=== PATIENT | female | born 1950 | race Caucasian/White ===

== ENCOUNTER 2019-09-03 01:46 | Day surgery (SDC) | payer MEDICARE, SELFPAY ==
[2019-08-29 09:12] VITALS: BMI 39.5
[2019-09-03 11:02] VITALS: BP 125/75; PULSE 81; RESP 18; TEMP 36.7; O2SAT 95
[2019-09-03] MEDS: LACTATED RINGERS 1,000 ML 150 ML IV CONT (11:05)
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
[2019-09-03 12:52] VITALS: BP 112/72; PULSE 77; RESP 25; O2SAT 95
[2019-09-03 13:02] VITALS: BP 122/69; PULSE 77; RESP 16; O2SAT 95
[2019-09-03 13:12] VITALS: BP 138/69; PULSE 69; RESP 16; O2SAT 95
[2019-09-03 13:18] LABS: Basophils Percent Auto 0.3 % (0.2-1.2); Eosinophils Absolute Auto 0.2 K/mm3 (0-0.3); Eosinophils Percent Auto 2.6 % (0-4.4); Hematocrit 39.1 % (37.0-47.0); Hemoglobin 13.1 g/dL (12.0-15.0); Immature Granulocyte Absolute 0.04 K/mm3 (0.00-0.031); Immature Granulocyte Percent A 0.6 % (0-0.5); Lymphocytes Absolute Auto 1.48 K/mm3 (0.9-3.2); Lymphocytes Percent Auto 23.6 % (18.3-44.2); Mean Corpuscular HGB Conc 33.5 g/dl (32-36); Mean Corpuscular Hemoglobin 32.2 pg (26-34); Mean Corpuscular Volume 96.1 fl (80-100); Mean Platelet Volume 9.7 fl (7.4-10.4); Monocytes Absolute Auto 0.3 K/mm3 (0.1-0.6); Monocytes Percent Auto 4.8 % (2.6-8.5); Neutrophils Absolute Auto 4.3 K/mm3 (1.3-6.7); Neutrophils Percent Auto 68.1 % (45.5-73.1); Platelet Count Result 250 k/mm3 (150-375); Red Blood Count 4.07 M/mm3 (4.2-5.4); Red Cell Distribution Width 12.8 % (11.5-14.5); White Blood Count 6.3 K/mm3 (4.5-10.0)
[2019-09-03 13:28] LABS: Prothrombin Time 12.4 Seconds (11.1-14.7)
[2019-09-03 13:29] LABS: Alanine Aminotransferase 25 U/L (4-35); Albumin Level 3.9 g/dL (3.5-5.1); Alkaline Phosphatase 101 U/L (38-126); Aspartate Amino Transferase 23 U/L (14-36); Bilirubin,Total 0.7 mg/dL (0.2-1.3)
[2019-09-03 13:33] LABS: Blood Urea Nitrogen 11 mg/dL (7-17); Calcium 8.9 mg/dL (8.4-10.2); Carbon Dioxide 29 mmol/L (22-30); Chloride 101 mmol/L (98-107); Estimated CRCL calculation 83 ml/min; Estimated Glomerular Filt Rate > 60; Glucose 103 mg/dL (65-105); Potassium 2.9 mmol/L (3.4-5.0); Sodium 139 mmol/L (137-145)
[2019-09-04 06:19] LABS: Glucose Point of Care 98 (65-105)
== END 2019-09-03 13:28 | disposition home or self-care (01) ==
PROVIDERS: Nurse Practitioner; PCP Internal Medicine; Visit Provider Internal Medicine Gastroenterology
PROC: 0DJ08ZZ Inspection of Upper Intestinal Tract, Via Natural or Artificial Opening Endoscopic (ICD-10-PCS; CPT 43235; principal; 2019-09-03 12:30)
DX: R13.10 Dysphagia, unspecified (principal); K31.7 Polyp of stomach and duodenum; K29.50 Unspecified chronic gastritis without bleeding; D83.9 Common variable immunodeficiency, unspecified; I10 Essential (primary) hypertension; E11.9 Type 2 diabetes mellitus without complications; E78.5 Hyperlipidemia, unspecified; E55.9 Vitamin D deficiency, unspecified; M06.9 Rheumatoid arthritis, unspecified; Z90.49 Acquired absence of other specified parts of digestive tract; Z79.84 Long term (current) use of oral hypoglycemic drugs; Z79.82 Long term (current) use of aspirin; E66.01 Morbid (severe) obesity due to excess calories; Z68.41 Body mass index [BMI] 40.0-44.9, adult
CPT/HCPCS: 43239; 36415; 80048; 80076; 85025; 85610; 88305; J2704; J7120

== ENCOUNTER 2020-01-13 00:06 | Outpatient (CLI) | payer MEDICARE, SELFPAY ==
[2020-01-13 18:56] LABS: SARS-CoV-2 RNA PCR Negative
== END 2020-01-13 00:07 | disposition home or self-care (01) ==
LOC: ANHCOVIDDT 00:06
PROVIDERS: PCP Internal Medicine; Visit Provider Internal Medicine Gastroenterology
DX: Z01.818 Encounter for other preprocedural examination (principal); Z11.59 Encounter for screening for other viral diseases; Z12.11 Encounter for screening for malignant neoplasm of colon
CPT/HCPCS: 87635; C9803; U0003

== ENCOUNTER 2020-01-15 01:26 | Day surgery (SDC) | payer MEDICARE, SELFPAY ==
[2019-12-10 09:29] VITALS: BMI 39.5
[2020-01-07 15:12] VITALS: BMI 39.5
[2020-01-15 07:03] VITALS: BP 112/56; PULSE 88; RESP 18; TEMP 36.4; O2SAT 96
[2020-01-15] MEDS: LACTATED RINGERS 1,000 ML 150 ML IV CONT (07:21)
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
[2020-01-15 07:24] LABS: Glucose Point of Care 116 (65-105)
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
[2020-01-15 07:57] VITALS: BP 87/51; PULSE 78; RESP 21; O2SAT 95
[2020-01-15 08:07] VITALS: BP 98/73; PULSE 87; RESP 18; O2SAT 98
[2020-01-15 08:17] VITALS: BP 106/65; PULSE 74; RESP 21; O2SAT 97
== END 2020-01-15 08:53 | disposition home or self-care (01) ==
PROVIDERS: PCP Internal Medicine; Visit Provider Internal Medicine Gastroenterology
PROC: 0DJD8ZZ Inspection of Lower Intestinal Tract, Via Natural or Artificial Opening Endoscopic (ICD-10-PCS; CPT 45378; principal; 2020-01-15 08:00)
DX: Z12.11 Encounter for screening for malignant neoplasm of colon (principal); K57.30 Diverticulosis of large intestine without perforation or abscess without bleeding; K64.8 Other hemorrhoids; Z86.010 Personal history of colon polyps; K21.9 Gastro-esophageal reflux disease without esophagitis; I10 Essential (primary) hypertension; E11.9 Type 2 diabetes mellitus without complications; E78.5 Hyperlipidemia, unspecified; G47.33 Obstructive sleep apnea (adult) (pediatric); E55.9 Vitamin D deficiency, unspecified
CPT/HCPCS: G0105; 87635; C9803; J2001; J2405; J2704; J7120; U0003

== ENCOUNTER 2020-05-22 09:54 | Outpatient (CLI) | payer MEDICARE, SELFPAY ==
--- NOTE | ~2020-05-22 | DEXA_ITS ---
Bone Density Report Name: Kathe Augustin Age: 69 Sex: Female Ethnicity: White Date of : 1950 Indication: postmenopausal; history of glucocorticoids; asthma or emphysema; hysterectomy; rheumatoid arthritis; Referring Provider: PRABHA ANN Study: Bone densitometry was performed. Exam Date: May 22, 2020 Accession number: [id number] Bone Density: Region BMD T-score Z-score Classification AP Spine (L1-L4) 1.174 1.2 3.2 Normal Femoral Neck (Left) 0.961 1.0 2.7 Normal Total Hip (Left) 1.154 1.7 3.2 Normal Total Hip Bilateral Avg 1.188 2.0 3.5 Normal Femoral Neck (Right) 1.004 1.4 3.1 Normal Total Hip (Right) 1.221 2.3 3.7 Normal World Health Organization criteria for BMD impression classify patients as: Normal (T-score at or above -1.0), Osteopenia (T-score between -1.0 and -2.5), or Osteoporosis (T-score at or below -2.5). 10-year Fracture Risk: FRAX not reported because: All T-scores for Spine Total, Hip Total, Femoral Neck at or above -1.0 Clinical Information Provided by Patient: Has taken Glucocorticoids Has rheumatoid arthritis Has the following medical conditions: Asthma or Emphysema, Hysterectomy Patient maximum height was 61 Menopause Age: 53 No regular weight bearing exercise Drinks caffeinated beverages Onset of menses at age 13 Number of children 3 Impression: The patient has normal bone mass. The patient has risk factors, including: history of glucocorticoid therapy. Discussion: LOW RISK OF FRACTURE; BONE DENSITY IS WELL ABOVE THE MINIMUM DESIRABLE LEVEL AND ABOVE AVERAGE FOR AGE AND SEX AT ALL SKELETAL SITES TESTED. This person's bone density is above expected limits for age and sex. This is rarely clinically significant, but should be pursued if there are significant musculoskeletal complaints. The patient should follow a healthful lifestyle (good nutrition with adequate calcium and vitamin D, and appropriate weight-bearing exercise). Follow-Up: Consider repeating this study in 5 years or sooner if there is some new clinical indication. Reported by: ESDRAS on 05/22/2020 10:31:00 AM. Reviewed, dictated and finalized at location AShannon ANAYA
--- NOTE | ~2020-05-22 | MM_ITS ---
EXAMINATION: MM screening tata BI w gela HISTORY: Screening TECHNIQUE: Craniocaudal and mediolateral oblique 3-D tomosynthesis images were obtained and synthetic 2-D images were generated. CAD analysis was submitted and interpreted. COMPARISON: Comparison to multiple prior studies sequentially, with oldest reviewed study dated 11/07. BREAST PARENCHYMAL COMPOSITION: There are scattered areas of fibroglandular density. FINDINGS: There is a focal asymmetry in the upper inner quadrant of the right breast with developing calcifications. The left breast is stable without evidence for malignancy. IMPRESSION: 1. Focal right breast asymmetry with calcifications, upper inner quadrant posteriorly. 2. Additional mammographic views and possible breast ultrasound are recommended. BI-RADS Category 0: Incomplete: Needs additional imaging evaluation. Reviewed, dictated and finalized at location A. ST LAW AND POLICY PROFESSOR IMPRESSION: 1. Focal right breast asymmetry with calcifications, upper inner quadrant poste riorly. 2. Additional mammographic views and possible breast ultrasound are recommended . BI-RADS Category 0: Incomplete: Needs additional imaging evaluation.
== END 2020-05-22 09:55 | disposition home or self-care (01) ==
LOC: ANHIMG 09:57
PROVIDERS: PCP Internal Medicine; Visit Provider Internal Medicine
DX: Z12.31 Encounter for screening mammogram for malignant neoplasm of breast (principal); Z79.52 Long term (current) use of systemic steroids; R92.8 Other abnormal and inconclusive findings on diagnostic imaging of breast
CPT/HCPCS: 77063; 77067; 77080

== ENCOUNTER 2020-06-15 13:50 | Outpatient (CLI) | payer MEDICARE, SELFPAY ==
--- NOTE | ~2020-06-15 | MM_ITS ---
EXAMINATION: MM diagnostic mammo unilat RT HISTORY: Focal right breast asymmetry with calcifications, posterior upper inner quadrant, reported o n 05/22/2020 bilateral digital screening mammogram TECHNIQUE: Additional 3-D tomosynthesis images of the right breast were performed and synthetic 2-D i mages were generated. CAD analysis was submitted and interpreted. High resolution upper inner quadran t right breast ultrasound was performed. COMPARISON: Serial mammographic examinations dating back to 02/07/2009 FINDINGS: MAMMOGRAPHIC FINDINGS: There is a small focal approximately 5 mm mammographic asymmetry in posterior aspect of the upper inn er quadrant of the right breast, which is present on prior mammograms dating back to 01/28/2009. ULTRASOUND: No suspicious mass or shadowing is detected in the upper inner quadrant of the right breast.. IMPRESSION: 1. No mammographic evidence of malignancy 2. Routine mammographic screening is recommended. BI-RADS Category 2: Benign finding(s). Reviewed, dictated and finalized at location A. TRAFFIC CONTROL OPERATOR
--- NOTE | ~2020-06-15 | US_ITS ---
US breast RT limited DATE: 06/15/2020 15:00 INDICATION: Focal asymmetry in posterior upper inner quadrant of right breast TECHNIQUE: High-resolution ultrasound imaging of the upper inner quadrant of the right breast COMPARISON: 05/22/2020 bilateral digital screening mammogram and serial mammograms dating back to 01/20 FINDINGS: No suspicious mass or shadowing is detected. IMPRESSION: BI-RADS Category 2: Benign Recommendation: Routine mammographic screening Reviewed, dictated and finalized at Location A. Reviewed, dictated and finalized at location A. SUPPORT ANALYST SUPERVISOR
== END 2020-06-15 13:51 | disposition home or self-care (01) ==
LOC: ANHIMG 13:52
PROVIDERS: PCP Internal Medicine; Visit Provider Internal Medicine
DX: N63.12 Unspecified lump in the right breast, upper inner quadrant (principal)
CPT/HCPCS: 76642; 77065

== ENCOUNTER 2020-07-18 02:21 | Emergency (ER) | payer MEDICARE, SELFPAY ==
[2020-07-18] VITALS (7 sets, daily range): BP systolic 119–162; BP diastolic 63–88; PULSE 79–104; RESP 15–22; TEMP 37.7–38.8; O2SAT 95–99
--- NOTE | ~2020-07-18 | XR_ITS ---
EXAMINATION: XR chest 1V portable EXAM DATE: 07/18/2020 02:54 INDICATION: Cough, shortness of breath, nausea and chills. TECHNIQUE: Portable AP frontal chest x-ray was obtained. Comparison is made to prior examination from 02/11/2015. FINDINGS: There is mild cardiomegaly and pulmonary vascular congestion. Some ill-defined bilateral ed yesica or infection, clinical correlation. Consider possibility of COVID pneumonia. No pneumothorax or pleural effusion. There are mild bony degenerative changes. 2014 chest x-ray was essentially normal. IMPRESSION: Cardiomegaly, congestion and some patchy ill-defined edema or infection. Reviewed, dictated and finalized at location A. OGRAPHIC PROOFER IMPRESSION: Cardiomegaly, congestion and some patchy ill-defined edema or infec tion.
--- NOTE | ~2020-07-18 | CT_ITS ---
EXAMINATION: CTA chest PE protocol EXAM DATE: 07/18/2020 04:01 INDICATION: Dyspnea. TECHNIQUE: Spiral CTA of the chest (pulmonary arteries) was performed with 100 cc Omnipaque 350 intr avenous contrast injection. Images were acquired during the pulmonary arterial phase. Coronal maxi mum intensity projection 3D-reconstructions were created by the technologist on dedicated workstation . Axial, coronal and sagittal reformatted images were reviewed. The dose-length product (DLP) for t his examination was 732.36 mGy-cm. The exposure was tailored according to patient size (auto mA exp osure control), and iterative reconstruction (ASIR) was used as additional dose reduction technique. Comparison is made to prior examination from 07/29/2019. FINDINGS: Pulmonary arteries are well opacified and without intraluminal filling defects. No thora cic aortic dissection. There is left lateral and basilar peripheral groundglass acute airspace disea se which is new compared to previous examination, most likely acute infectious pneumonitis. There is chronic right upper lobe bronchiectasis. There are no pleural or pericardial effusions. Tracheobro nchial tree is patent. There is no mediastinal, hilar or axillary lymphadenopathy. There is no pn eumothorax. Heart normal in size. There is mild coronary arterial calcification, arterial scleros is. There is hepatic steatosis. There is thoracic spondylosis without osteoblastic or osteolytic le sions identified. IMPRESSION: 1. Left lung small regions of peripheral groundglass opacity most likely acute infectious process. R ecommend considering possibility of COVID pneumonia. 2. No evidence of pulmonary embolism. 3. Hepatic steatosis. Reviewed, dictated and finalized at location A. ISTICAL METHODS PROFESSOR IMPRESSION: 1. Left lung small regions of peripheral groundglass opacity most likely acute infectious process. Recommend considering possibility of COVID pneumonia. 2. No evidence of pulmonary embolism. 3. Hepatic steatosis.
--- NOTE | 2020-07-18 02:25 | ECG_ITS ---
Measurements Intervals [place] Rate: 103 P: 25 NM: 171 QRS: 12 QRSD: 88 T: 30 QT: 320 QTc: 420 Interpretive Statements SINUS TACHYCARDIA DELAYED PRECORDIAL R/S TRANSITION BASELINE ARTIFACT- I, II, III, AVR, AVL, AVF BORDERLINE ECG Electronically Signed On 07-18-2020 15:03:58 DIRECTOR STRATEGIC PLANNING by Semaj Lopez D.O.
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
[2020-07-18] MEDS: ONDANSETRON INJ 4 MG/2 ML VIAL IV PUSH (02:42)
[2020-07-18 02:46] LABS: Basophils Percent Auto 0.2 % (0.2-1.2); Eosinophils Percent Auto 0.2 % (0-4.4); Hematocrit 36.6 % (37.0-47.0); Hemoglobin 12.4 g/dL (12.0-15.0); Immature Granulocyte Absolute 0.08 K/mm3 (0.00-0.031); Immature Granulocyte Percent A 1.5 % (0-0.5); Lymphocytes Absolute Auto 0.66 K/mm3 (0.9-3.2); Lymphocytes Percent Auto 12.1 % (18.3-44.2); Mean Corpuscular HGB Conc 33.9 g/dl (32-36); Mean Corpuscular Hemoglobin 31.3 pg (26-34); Mean Corpuscular Volume 92.4 fl (80-100); Mean Platelet Volume 9.4 fl (7.4-10.4); Monocytes Absolute Auto 0.3 K/mm3 (0.1-0.6); Monocytes Percent Auto 5.5 % (2.6-8.5); Neutrophils Absolute Auto 4.4 K/mm3 (1.3-6.7); Neutrophils Percent Auto 80.5 % (45.5-73.1); Platelet Count Result 232 k/mm3 (150-375); Red Blood Count 3.96 M/mm3 (4.2-5.4); Red Cell Distribution Width 12.8 % (11.5-14.5); White Blood Count 5.5 K/mm3 (4.5-10.0)
[2020-07-18 02:58] LABS: D Dimer 0.56 ug/mL (<0.48)
[2020-07-18 02:59] LABS: Alanine Aminotransferase 21 U/L (4-35); Albumin Level 3.9 g/dL (3.5-5.1); Alkaline Phosphatase 110 U/L (38-126); Anion Gap 10 mmol/L (8-16); Aspartate Amino Transferase 29 U/L (14-36); Bilirubin,Total 0.5 mg/dL (0.2-1.3); Blood Urea Nitrogen 12 mg/dL (7-17); Calcium 8.9 mg/dL (8.4-10.2); Carbon Dioxide 27 mmol/L (22-30); Chloride 98 mmol/L (98-107); Estimated CRCL calculation 81 ml/min; Estimated Glomerular Filt Rate > 60; Glucose 161 mg/dL (65-105); Sodium 135 mmol/L (137-145)
[2020-07-18] MEDS: ALBUTEROL SULFATE (*SP) AEROSOL 1 PUFF 2 PUFF INHALATION (03:00)
[2020-07-18] MEDS: POTASSIUM CHLORIDE 20 MEQ PACKET (FOR LIQUID) 40 MEQ PO (06:03)
[2020-07-18] MEDS: AZITHROMYCIN 250 MG TABLET 500 MG PO (06:03)
== END 2020-07-18 06:29 | disposition home or self-care (01) ==
PROVIDERS: Emergency Provider Emergency Medicine; PCP Internal Medicine
DX: U07.1 COVID-19 (principal); J12.89 Other viral pneumonia; Z79.82 Long term (current) use of aspirin; I10 Essential (primary) hypertension; M35.2 Behcet's disease; J44.9 Chronic obstructive pulmonary disease, unspecified; D83.9 Common variable immunodeficiency, unspecified; E11.43 Type 2 diabetes mellitus with diabetic autonomic (poly)neuropathy; K31.84 Gastroparesis; K21.9 Gastro-esophageal reflux disease without esophagitis; E78.5 Hyperlipidemia, unspecified; G47.33 Obstructive sleep apnea (adult) (pediatric); M06.9 Rheumatoid arthritis, unspecified; M35.00 Sjogren syndrome, unspecified; E55.9 Vitamin D deficiency, unspecified; Z98.49 Cataract extraction status, unspecified eye; R00.0 Tachycardia, unspecified; R94.31 Abnormal electrocardiogram [ECG] [EKG]; Z79.84 Long term (current) use of oral hypoglycemic drugs
CPT/HCPCS: 36415; 71045; 71275; 80053; 85025; 85380; 93005; 94640; 96365; 96375; 99284; A9270; J0131; J2405; Q9967

== ENCOUNTER 2020-07-22 10:03 | Outpatient (RCR) | payer MEDICARE, SELFPAY ==
[2020-07-22] MEDS: ACETAMINOPHEN 325 MG TABLET 650 MG PO (11:14)
[2020-07-22] MEDS: diphenhydrAMINE HCl CAP 25 MG CAPSULE PO (11:15)
[2020-07-22] MEDS: FAMOTIDINE 20 MG TABLET PO (11:15)
[2020-07-22 11:17] VITALS: BP 106/61; RESP 18; O2SAT 96
[2020-07-22 12:42] VITALS: BP 121/64; PULSE 80; RESP 16; O2SAT 95
--- NOTE | 2020-07-22 12:54 | PC.NURSE ---
Prior to infusion patient given Bamlanivimab patient fact sheet to review.
[2020-07-22 13:15] VITALS: BP 128/66; PULSE 77; O2SAT 96
--- NOTE | 2020-07-22 13:20 | PC.NURSE ---
Patient discharged, vss, instructions given. Verbalizes understanding of continuing quarantine and wearing mask, signs and symptoms to notify primary care for.
--- NOTE | 2020-07-26 11:50 | PC.NURSE ---
Spoke with patient and she is feeling better. About 24 hours after the infusion of Bamlanivimab, she was fever free, less shortness of breath and able to sleep better.
== END 2020-07-26 10:37 ==
LOC: AMCINF 10:03
PROVIDERS: PCP Internal Medicine; Visit Provider Internal Medicine Hematology & Oncology
DX: U07.1 COVID-19 (principal); J44.9 Chronic obstructive pulmonary disease, unspecified; D83.9 Common variable immunodeficiency, unspecified; D80.9 Immunodeficiency with predominantly antibody defects, unspecified; G47.33 Obstructive sleep apnea (adult) (pediatric); I10 Essential (primary) hypertension; K31.84 Gastroparesis; K21.9 Gastro-esophageal reflux disease without esophagitis; K22.70 Barrett's esophagus without dysplasia; B08.5 Enteroviral vesicular pharyngitis; B37.81 Candidal esophagitis; E11.9 Type 2 diabetes mellitus without complications; E55.9 Vitamin D deficiency, unspecified; E78.5 Hyperlipidemia, unspecified; M35.2 Behcet's disease; M35.00 Sjogren syndrome, unspecified; M06.9 Rheumatoid arthritis, unspecified; R10.13 Epigastric pain; R13.10 Dysphagia, unspecified; R14.0 Abdominal distension (gaseous); R14.3 Flatulence; Z23 Encounter for immunization; F51.01 Primary insomnia; Z90.710 Acquired absence of both cervix and uterus; Z86.010 Personal history of colon polyps; Z90.49 Acquired absence of other specified parts of digestive tract; Z98.890 Other specified postprocedural states; Z79.899 Other long term (current) drug therapy; Z68.41 Body mass index [BMI] 40.0-44.9, adult
CPT/HCPCS: A9270; J7050; M0239; Q0239

== ENCOUNTER 2021-02-22 10:27 | Outpatient (CLI) | payer MEDICARE, SELFPAY ==
--- NOTE | ~2021-02-22 | XR_ITS ---
EXAMINATION: XR hip BI wo pelvis DATE: 02/22/2021 10:48 INDICATION: Right hip pain. TECHNIQUE: 3 views of right hip and 3 views of left hip were obtained. COMPARISON: Hip radiographs 10/21/2018 FINDINGS: Bone alignment is normal. No fracture. The hip joint spaces are normal. IMPRESSION: 1. Normal hips. Reviewed, dictated and finalized at location A. IMPRESSION: 1. Normal hips.
== END 2021-02-22 10:28 | disposition home or self-care (01) ==
LOC: ANHIMG 10:34
PROVIDERS: PCP Internal Medicine; Visit Provider Internal Medicine
DX: M25.551 Pain in right hip (principal); M25.552 Pain in left hip
CPT/HCPCS: 73521

== ENCOUNTER 2021-03-17 08:44 | Outpatient (CLI) | payer MEDICARE, SELFPAY ==
--- NOTE | ~2021-03-17 | XR_ITS ---
EXAMINATION: XR barium swallow modified EXAM DATE: 03/17/2021 09:39 INDICATION: Dysphagia, reflux, varices esophagus. History of tracheoesophageal fistula repair. TECHNIQUE: Modified barium esophagram was performed by speech pathologist with radiologist Dr. Rylan Hobson present to administered fluoroscopy. Speech pathologist administered barium in varying consis tencies as per speech pathologist documentation. This was recorded on tape. There was total fluorosc opic time of 1.0 minutes. The DAP for this procedure was 1.8 Gycm2. A total of 6 images sent to PAC S from the exam. FINDINGS: Oral stage: Adequate function. Pharyngeal phase: Adequate function. Laryngeal penetration: Thin liquids, ejected. Aspiration: None. Laryngeal sensitivity: Present. Patient stated she felt ingested material still present. Additional frontal standing images of the es ophagus demonstrated small amount of residual barium in the distal esophagus, with everything else in gested in her stomach. More comprehensive evaluation with esophagram if indicated clinically. IMPRESSION: Normal modified esophagram exam. Reviewed, dictated and finalized at location A.
--- NOTE | 2021-03-17 15:44 | STOPEVAL ---
MODIFIED BARIUM SWALLOW EVALUATION: Thank you for referring Kathe Augustin to [facility].? Attending Provider: Rylan Ramos MD Outpatient Past Medical History Past Medical History Source of Past Medical History Patient Neurological History Hx Neurological Disorders No Significant History Cardiovascular History Hx Hypercholesterolemia Yes Hx Hypertension Yes Hx Palpitations Yes Respiratory History Hx Bronchitis Yes: from a child Hx Chronic Obstructive Pulmonary Disease Yes: INHALERS (COPD) Hx Pneumonia Yes: from a child Hx Sleep Apnea Yes: CPAP Hx Other Respiratory Disorders Yes: Tracheal esophageal fistula repair x2 20 years ago Gastrointestinal History Hx Appendectomy Yes Hx Bowel Surgery Yes: CECAL COLECTOMY PRECANCEROUS Hx Cholecystectomy Yes Hx Esophageal Disorders Yes: TE FISTULA repair 20 YRS AGO Hx Gastroesophageal Reflux Disease Yes Hx Polyps Yes: colon PRECANCEROUS Hx Other Gastrointestinal Disorders Yes: dx serrano's esophagus 2019 with egd Genitourinary History Hx Bladder Surgery Yes: BLADDER SUSPENSION Musculoskeletal History Hx Fibromyalgia Yes Hx Orthopedic Surgery Yes: left bunionectomy Hematological History Are You Aware That You Have Any Yes: O NEG AND HAS CVID-Common Antibodies? variable immunodefeciency Hx Blood Transfusions Yes Hx Other Hematological Disorders Yes: gets IV IgG infused monthly for CVID Endocrine History Hx Diabetes Yes: po meds HEENT History Hx Cataracts Yes: BILAT REMOVED Hx Tonsillectomy Yes Hx Other HEENT Disorders Yes: SINUS SURGERY X2 REMOVAL OF POLYPS Integumentary History Hx Skin Disorders No Significant History Reproductive History Hx Hysterectomy Yes Hx Tubal Ligation Yes Psychosocial History Hx Anxiety Yes Pain History History of Any Previous or Ongoing No Significant History Instance of Pain Anesthesia History Hx Other Anesthesia Reactions Yes: NAUSEA Modified Barium Swallow Evaluation Recent Swallowing History Reports Dysphagia Yes History of Dysphagia No: 6-7 months History of Pneumonia Yes: childhood Reported Difficult Consistencies Solids Intake Method Prior to Swallow Oral Evaluation Diet Prior to Swallow Evaluation Regular, Level 7 Liquid Consistency Prior to Swallow Thin (0) Evaluation Consistency Solid Consistency Method of Presentation
== END 2021-03-17 08:45 | disposition home or self-care (01) ==
PROVIDERS: PCP Internal Medicine; Visit Provider Internal Medicine Gastroenterology
DX: R13.14 Dysphagia, pharyngoesophageal phase (principal); K22.70 Barrett's esophagus without dysplasia; K21.00 Gastro-esophageal reflux disease with esophagitis, without bleeding
CPT/HCPCS: 92611

== ENCOUNTER 2021-04-25 09:14 | Outpatient (CLI) | payer MEDICARE, SELFPAY ==
--- NOTE | ~2021-04-25 | XR_ITS ---
XR cervical spine min 6V DATE: 04/25/2021 09:35 INDICATION: Neck pain, acute onset headache TECHNIQUE: AP, open-mouth, lateral, swimmer views. Flexion and extension lateral views. COMPARISON: None FINDINGS: There is straightening of the cervical spine. There is minimal anterolisthesis at C3-C4 in neutral and flexion, reduced in extension. C1 and C2 are normally aligned and the odontoid process is intact. No fracture or dislocation or lock ed facet or prevertebral soft tissue swelling. No fracture or dislocation or locked facet or prevertebral soft tissue swelling. There is moderately prominent degenerative disc disease and uncovertebral joint spurring at C4-5, C5- C6 and C6-7. IMPRESSION: Cervical spondylosis Mild anterolisthesis at C3-C4 in neutral and flexion, reduced in extension Reviewed, dictated and finalized at location A.
== END 2021-04-25 09:15 | disposition home or self-care (01) ==
LOC: ANHIMG 09:16
PROVIDERS: PCP Internal Medicine; Visit Provider Internal Medicine
DX: M54.2 Cervicalgia (principal); M47.812 Spondylosis without myelopathy or radiculopathy, cervical region; M43.12 Spondylolisthesis, cervical region
CPT/HCPCS: 72052

== ENCOUNTER 2021-12-06 10:00 | Outpatient (CLI) | payer MEDICARE, SELFPAY ==
--- NOTE | ~2021-12-06 | MM_ITS ---
EXAMINATION: MM screening [facility] BI w gela HISTORY: Screening mammogram TECHNIQUE: Craniocaudal and mediolateral oblique 3-D tomosynthesis images were obtained and synthetic 2-D images were generated. CAD analysis was submitted and interpreted. COMPARISON: 06/15/2020, 05/22/2020, 04/11/2018 BREAST PARENCHYMAL COMPOSITION: There are scattered areas of fibroglandular density. FINDINGS: RIGHT BREAST: There is a possible mass with spiculation in the posterior third of inner breast at the 3:00 location 10 cm from the nipple. LEFT BREAST: There is no suspicious mass, calcification, or architectural distortion to suggest malig kevon. There has been no significant interval change. IMPRESSION: 1. Possible right breast mass. 2. Additional mammographic views and possible breast ultrasound are recommended. BI-RADS Category 0: Incomplete: Needs additional imaging evaluation. Reviewed, dictated and finalized at location A. IMPRESSION: 1. Possible right breast mass. 2. Additional mammographic views and possible breast ultrasound are recommended . BI-RADS Category 0: Incomplete: Needs additional imaging evaluation.
== END 2021-12-06 10:01 | disposition home or self-care (01) ==
LOC: ANHIMG 10:01
PROVIDERS: PCP Internal Medicine; Visit Provider Internal Medicine
DX: Z12.31 Encounter for screening mammogram for malignant neoplasm of breast (principal); R92.8 Other abnormal and inconclusive findings on diagnostic imaging of breast
CPT/HCPCS: 77063; 77067

== ENCOUNTER 2021-12-15 13:43 | Outpatient (CLI) | payer MEDICARE, SELFPAY ==
--- NOTE | ~2021-12-15 | MMUS_ITS ---
EXAMINATION: MM diagnostic tata RT w gela, US breast RT limited HISTORY: Possible spiculated right breast mass reported in posterior upper inner right breast on 12/06 screening mammogram TECHNIQUE: Additional 3-D tomosynthesis images of the right breast were performed and synthetic 2-D i mages were generated. CAD analysis was submitted and interpreted. High resolution targeted to o'clock right breast ultrasound was performed. COMPARISON: None FINDINGS: MAMMOGRAPHIC FINDINGS: There is an irregular up to 4.5 x 2.6 mm high density mass is noted in the posterior upper inner righ t breast, with spiculation. This is very suspicious. Targeted ultrasound was performed at posterior u pper inner right breast. ULTRASOUND: Right breast 2:00 10 cm from nipple: There is an irregular antiparallel hypoechoic mass with posterio r shadowing at this location, corresponding to the irregular spiculated mammographic mass, highly sug gestive of a small malignancy, which measures 3.3 x 2.4 x 3.7 mm approximate dimension sonographicall y. IMPRESSION: 1. 4 mm irregular spiculated hypoechoic shadowing mass in the posterior upper inner right breast at 2 :00 10 cm from nipple, highly suggestive of small malignancy 2. Ultrasound-guided biopsy of right 2:00 breast lesion is recommended BI-RADS category 5, highly suggestive of malignancy. Dr. Chopra telephoned the report and ultrasound guided biopsy recommendation for right breast at 2:00 p osition 10 cm from nipple to Dr. Saldana on 12/15/2021 at 1516 hours Reviewed, dictated and finalized at location A. IMPRESSION: 1. 4 mm irregular spiculated hypoechoic shadowing mass in the posterior upper i nner right breast at 2:00 10 cm from nipple, highly suggestive of small maligna ncy 2. Ultrasound-guided biopsy of right 2:00 breast lesion is recommended BI-RADS category 5, highly suggestive of malignancy. Dr. Chopra telephoned the report and ultrasound guided biopsy recommendation for right breast at 2:00 position 10 cm from nipple to Dr. Saldana on 12/15/2021 at 1 516 hours
== END 2021-12-15 13:44 | disposition home or self-care (01) ==
LOC: ANHIMG 13:45
PROVIDERS: PCP Internal Medicine; Visit Provider Internal Medicine
DX: R92.8 Other abnormal and inconclusive findings on diagnostic imaging of breast (principal); N63.12 Unspecified lump in the right breast, upper inner quadrant
CPT/HCPCS: 76642; 77061; 77065; G0279

== ENCOUNTER 2022-01-20 08:54 | Outpatient (CLI) | payer MEDICARE, SELFPAY ==
--- NOTE | ~2022-01-20 | US_ITS ---
US breast RT limited 01/20/2022 09:44 Indication: Left breast mass seen on prior ultrasound examination Procedure: High-resolution Limited ultrasound of the right breast Comparison: Comparison to multiple prior studies sequentially, with oldest reviewed study dated 04/24. Findings: In the area of previously identified mass at 2:00, 10 cm from the nipple there is subtle ar ea of shadowing, although no discrete mass is identified. This could represent septal interface. Revi ew of the previous mammogram demonstrates a small irregular mass in the area of sonographic concern. Impression: 1: Right breast mass seen on prior examination not definitely seen by ultrasound. Given the the mass is identified by mammography, further evaluation with stereotactic biopsy is recommended. BI-RADS CATEGORY 4-SUSPICIOUS ABNORMALITY RECOMMENDATION: Stereotactic right breast biopsy recommended. Reviewed, dictated and finalized at location A. Impression: 1: Right breast mass seen on prior examination not definitely seen by ultrasoun d. Given the the mass is identified by mammography, further evaluation with whitley reotactic biopsy is recommended. BI-RADS CATEGORY 4-SUSPICIOUS ABNORMALITY RECOMMENDATION: Stereotactic right breast biopsy recommended.
== END 2022-01-20 08:55 | disposition home or self-care (01) ==
PROVIDERS: PCP Internal Medicine; Visit Provider Surgery
DX: N63.12 Unspecified lump in the right breast, upper inner quadrant (principal)
CPT/HCPCS: 76642

== ENCOUNTER 2022-01-31 13:03 | Outpatient (CLI) | payer MEDICARE, SELFPAY ==
--- NOTE | ~2022-01-31 | MM_ITS ---
MM consultation DATE: 01/31/2022 14:18 INDICATION: Irregular 4.5 x 2.6 mm high density spiculated mammographic mass in posterior upper inner right breast Attempts were made to perform a stereotactic biopsy on the posterior upper inner right breast mass. T he lesion was 2-D to access by stereotactic biopsy. Preoperative mammographic wire localization is recommended with surgical removal of the mass. IMPRESSION: BI-RADS Category 4: Suspicious abnormality Recommendation: Preoperative mammographic wire localization and surgical removal Reviewed, dictated and finalized at Location A. Reviewed, dictated and finalized at location A. IMPRESSION: BI-RADS Category 4: Suspicious abnormality Recommendation: Preoperative mammographic wire localization and surgical remova l
== END 2022-01-31 13:04 | disposition home or self-care (01) ==
LOC: ANHIMG 13:04
PROVIDERS: PCP Internal Medicine; Visit Provider Surgery
DX: N63.10 Unspecified lump in the right breast, unspecified quadrant (principal); R92.8 Other abnormal and inconclusive findings on diagnostic imaging of breast
CPT/HCPCS: 99199

== ENCOUNTER 2022-03-21 07:54 | Outpatient (CLI) | payer MEDICARE, SELFPAY ==
[2022-03-21 08:43] LABS: Anion Gap 14 mmol/L (8-16); Blood Urea Nitrogen 21 mg/dL (7-17); Calcium 9.5 mg/dL (8.4-10.2); Carbon Dioxide 28 mmol/L (22-30); Chloride 98 mmol/L (98-107); Estimated Glomerular Filt Rate > 60; Glucose 146 mg/dL (65-110); Potassium 3.3 mmol/L (3.4-5.0); Sodium 140 mmol/L (137-145)
== END 2022-03-21 07:55 | disposition home or self-care (01) ==
PROVIDERS: Anesthesiology; PCP Internal Medicine; Visit Provider Surgery
DX: Z01.818 Encounter for other preprocedural examination (principal); E11.9 Type 2 diabetes mellitus without complications
CPT/HCPCS: 36415; 80048

== ENCOUNTER 2022-03-23 00:22 | Day surgery (SDC) | payer MEDICARE, SELFPAY ==
[2022-03-20 09:12] VITALS: BMI 36.1
--- NOTE | 2022-03-20 09:32 | PC.NURSE ---
Report to the Outpatient Waiting Room, entrance under the green pavilion located off [facility], at time _0830_ on date _03/23/22_. OR Time: _1200_. - You and your visitor will be asked to self-screen and do not enter if you have any COVID symptoms. - Only one visitor and NO children visitors are allowed at this time. - The patient visitor is requested to leave or wait in car when not with patient due to restrictions. - A mask is required within the hospital. Patients may have clear liquids (water, carbonated beverages, clear teas, apple juice) until 3 hours prior to surgery (0900 AM) with a maximum of 20 ounces. - No food from midnight until time of surgery - Infants may have breast milk until 4 hours before surgery, formula 6 hours prior to surgery. - Children will be allowed to drink immediately following surgery. If applicable, please bring a bottle or sippy cup to assist with drinking. Juice, water, soda, and popsicles are readily available. For infants on formula, please bring formula the day of surgery. Pacifiers are allowed. Take the following medications with a SIP of water the morning of surgery: _PREDNISONE, SERTRALINE, INHALER, LORAZEPAM IF NEEDED_ Medications to discontinue ANESTHESIA - OMEGA 3 - 3 DAYS PRIOR TO SURGERY, Date to take last dose 04/20/22_ Please no make-up, nail palestinian, hairspray, perfume, deodorant, or body powder the day of surgery. No jewelry (including any body piercings) or valuables the day of surgery, leave them at home. Please take a shower or bath the night before, or the morning of, surgery with an antibacterial soap. Wear comfortable, loose fitting clothing. - Jewelry must be removed prior to entering the operating room. Rings and piercings that are not removed may be cut off. - The hospital will not accept responsibility for valuables. - Please leave all valuables, including medications, at home the day of surgery. If you are going home after surgery, a licensed pile driver operator helper must drive you home. - NO public transportation without another adult. - We recommend that an adult stay with you for 24 hours following discharge. - We also recommend that you do not drive, make important decision, drink alcoholic beverages, or take any drugs that were not prescribed by your health care provider for at least 24 hours after your discharge time. Follow any additional instructions given to you from your surgeon. HIBICLENS SHOWER AM OF SURGERY If you or anyone in your household have experienced Covid symptoms in the past week, please notify your surgeon or the nurse liaison at the phone number below for possible testing. Telephone instructions given to ___PT and asked if any additional questions and then verbalized understanding. Patient advised to call surgeon office or pre surgery nurse liaison [phone] if any additional questions.
[2022-03-23] VITALS (9 sets, daily range): BP systolic 115–153; BP diastolic 59–74; PULSE 72–86; RESP 14–20; TEMP 36.7; O2SAT 95–100; BMI 36.8
--- NOTE | ~2022-03-23 | MM_ITS ---
EXAMINATION: MM needle loc RT, MM surgical specimen RT DATE: 03/23/2022 10:30 (accession [id number]), 03/23/2022 14:00 (accession [id number]) INDICATION: Mass in the upper inner quadrant of the right breast with unsuccessful stereotactic and u ltrasound guided biopsy attempts. Wire localization is performed for excisional biopsy. TECHNIQUE: The procedure for a mammography-guided needle localization was discussed with the patient. Risks and benefits were detailed including risks of bleeding and infection. The patient verbalized u nderstanding and agreed to proceed. A time out was performed to verify the patient's name, date of , and site of procedure. The betsy ent was placed in mediolateral compression, and the skin overlying the right breast was prepared in usual fashion. The skin and subcutaneous soft tissues were infiltrated with 1% lidocaine for local an esthesia. Utilizing mammography guidance, a needle was advanced into the right breast. Two confirmato ry films were obtained. The patient tolerated procedure without immediate complication. A specimen radiograph was performed. FINDINGS: Two view confirmatory films of the right breast demonstrate a needle with tip adjacent to t he mass in the upper outer quadrant of the right breast. The wire and mass are contained within the s urgical specimen. IMPRESSION: 1. Successful mammography-guided right breast needle localization. Reviewed, dictated and finalized at location A. IMPRESSION: 1. Successful mammography-guided right breast needle localization.
--- NOTE | ~2022-03-23 | NM_ITS ---
EXAMINATION: NM sentinel node inject only INDICATION: Probable right breast cancer TECHNIQUE: 0.95 mCi Tc 99m Lymphoseek were injected in 4 aliquots in the upper outer quadrant of the breast near the areola. No images were obtained. IMPRESSION: 1. Status post right breast sentinel lymph node radiopharmaceutical injection. Reviewed, dictated and finalized at location A.
[2022-03-23 09:40] LABS: Glucose Point of Care 145 mg/dl (65-105)
[2022-03-23] MEDS: KETOROLAC 15 MG/ML VIAL (*BKC) IV PUSH (11:31)
[2022-03-23] MEDS: ACETAMINOPHEN 500 MG TABLET 1000 MG PO (11:31)
[2022-03-23] MEDS: LACTATED RINGERS 1,000 ML 30 ML IV CONT ×2 (11:37→14:45)
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
--- NOTE | 2022-03-23 12:00 | WPDANESEPPF ---
Anes - Initial Pre Proc Eval Procedure: Operation Date: 03/23/22 12:00 Proposed Procedures p Right Breast Lumpectomy, Right Axillary Foster Lymph Node Biopsy - Spencer Mario MD s Ultrasound and /or Mammogram Guided Needle Localization Right Breast - Spencer Mario MD Date/Time: 03/23/22 12:00 Surgeon: Spencer Mario MD Pre Op Diagnosis: Abnormal Breast Imaging -Right Patient Data Age: 71 Gender: F Height: 1.55 m Weight: 88.6 kg Last Vital Signs Temp 36.7 C 03/23/22 08:35 Pulse 83 03/23/22 08:35 Resp 16 03/23/22 08:35 BP 141/67 H 03/23/22 08:35 Pulse Ox 98 03/23/22 08:35 O2 Del Method Room Air 03/23/22 08:35 Allergies Allergy/AdvReac Type Severity Reaction Status Date / Time metronidazole [From Flagyl] Allergy Severe Rash Verified 03/23/22 08:57 tramadol Allergy Severe UNABLE TO Verified 03/23/22 08:57 SLEEP YODIT Inhibitors Allergy Unknown RASH, Verified 03/23/22 08:57 ANGIOEDEMA cephalexin Allergy Unknown SEVERE Verified 03/23/22 08:57 RASH,BLISTERS ciprofloxacin Allergy Unknown RASH,ANGIOE Verified 03/23/22 08:57 JOEY codeine Allergy Unknown ITCHING Verified 03/23/22 08:57 levofloxacin Allergy Unknown RASH, Verified 03/23/22 08:57 ANGIOEDEMA Home Medications Medication Instructions Recorded Confirmed Type fluticasone propionate 50 1 spray intranasal DAILY 07/02/19 03/20/22 History mcg/actuation nasal spray,suspension (Flonase Allergy Relief) aspirin 81 mg tablet,delayed 81 mg PO DAILY 08/14/19 03/23/22 History release apremilast 30 mg tablet (Otezla) 30 mg PO BID 11/18/19 03/20/22 History omega-3 fatty acids 1,000 mg 1,000 mg PO BID 03/23/20 03/23/22 History capsule (Fish Oil Concentrate) bumetanide 1 mg tablet 1 mg PO DAILY PRN Edema #90 tabs 05/12/20 03/20/22 Rx loratadine 10 mg tablet (Claritin) 10 mg PO DAILY PRN Allergy Symptoms 05/12/20 03/20/22 History azathioprine 50 mg tablet (Imuran) 100 mg PO DAILY 06/29/20 03/20/22 History pantoprazole 40 mg tablet,delayed 40 mg PO BID 04/25/21 03/20/22 History release hydrochlorothiazide 12.5 mg capsule See Rx Instructions .Route 06/14/21 03/20/22 Rx .COMPLEX #90 caps fluticasone 250 mcg-salmeterol 50 1 inh inhalation BID #60 ea 06/30/21 03/20/22 Rx mcg/dose blistr powdr for inhalation (Advair Diskus) levalbuterol HCl 1.25 mg/3 mL 1.25 mg (3 mL) inhalation TID PRN 06/30/21 03/20/22 Rx solution for nebulization (Xopenex) shortness of breath or wheezing #270 mL metformin 1,000 mg tablet 1,000 mg PO BID #180 tabs 08/01/21 03/20/22 Rx rosuvastatin 10 mg tablet See Rx Instructions .Route 09/15/21 03/20/22 Rx .COMPLEX #90 tabs sertraline 100 mg tablet See Rx Instructions .Route 11/01/21 03/23/22 Rx .COMPLEX #90 tabs potassium chloride 20 mEq 20 meq PO TID #270 tabs 11/09/21 03/20/22 Rx tablet,extended release(part/cryst) cholecalciferol (vitamin D3) 50 100 mcg PO DAILY 11/17/21 03/23/22 History mcg (2,000 unit) capsule prednisone 2.5 mg tablet 2.5 mg PO DAILY 11/17/21 03/23/22 History lorazepam 1 mg tablet 1 mg PO BID-TID PRN anxiety #90 11/24/21 03/20/22 Rx tabs zolpidem 10 mg tablet 10 mg PO QHS #30 tabs 11/24/21 03/20/22 Rx verapamil 180 mg tablet,extended 180 mg PO DAILY #90 tabs 01/04/22 03/20/22 Rx release albuterol sulfate 90 mcg/actuation See Rx Instructions .Route 01/13/22 03/23/22 Rx aerosol inhaler .COMPLEX #27 grams telmisartan 80 mg tablet See Rx Instructions .Route 03/21/22 Rx .COMPLEX #90 tabs Laboratory Tests 03/23/22 09:21 POC Capillary Glucose 145 mg/dl H mg/dl (65-105) Patient hx anesthesia problems: none Family hx anesthesia problems: none Results Review: All pre-operative results and documents have been reviewed as part of the pre-operative evaluation. [facility] Past Medical History Medical History Abnormal mammogram of right breast [place]
--- NOTE | 2022-03-23 12:02 | WPDHPUPDATE1 ---
History and Physical Update Update Date/Time: 03/23/22 12:02 History and Physical has been reviewed, including an updated exam of the patient. There are NO changes in the patient's condition. Risks, benefits, and alternatives have been discussed and questions answered. Patient agrees to proceed with procedure.
[2022-03-23] MEDS: ISOSULFAN BLUE 1% INJ 5 ML VIAL SUB-Q (12:18)
[2022-03-23] MEDS: ceFAZolin 2 GM/D5W 50 ML 2 GM/50 ML BAG IVPB (12:18)
--- NOTE | 2022-03-23 14:23 | W.PM.PROC2 ---
Procedure Note - Detailed Date of Procedure 03/23/22 Pre-op Diagnosis Abnormal Breast Imaging -Right Post-op Diagnosis Same Procedure Performed Wire localization, right breast lumpectomy, right axillary sentinel lymph node biopsy Surgeon Spencer Mario MD Memorandum Statement Clerk Rhina MCCONNELLA [employer] Anesthesia General and Local (0.25% bupivacaine with epinephrine) Indications Patient is a 71-year-old woman with a very suspicious upper inner quadrant right breast lesion. Lesion is quite small, about 4 mm. Due to its position, we were unable to proceed with image guided needle core biopsy. Since the lesion is suspicious, BI-RADS 5, we are proceeding with wire localization right breast lumpectomy as well as right axillary sentinel lymph node biopsy at this time. Findings Specimen mammogram confirmed the lesion was present in the specimen. There were 2 sentinel lymph nodes submitted, both had high isotope emission as well as Lymphazurin blue dye staining. Description of Procedure Patient was taken to surgery and anesthesia was introduced. The right breast, right axilla and right arm were prepped and draped. Care was taken not to disturb the localizing wire from previous wire localization in x-ray. We started with the sentinel lymph node biopsy. Lymphazurin blue dye was infiltrated deep subdermal under the nipple areola complex. Gentle breast massage was carried out. The navigator was then used to locate an area of high isotope emission in the right axilla. This was in the lower portion of the right axilla. This was marked on the skin and a proposed hairline incision was marked on the skin. Local anesthesia was infiltrated into the skin and the subcutaneous. Incision was made and dissection was carried down through the subcutaneous to the axillary fat. We again used the Navigator and found the area of high isotope emission in lower axilla. Careful dissection showed some dye stained lymphatics leading to a lymph node which was also dissecting and. The lymph node was carefully dissected free from the surrounding axillary tissue. Clips were placed over the lymphatics. The lymph node was removed. It was obviously dye stained and also had very high isotope emission. This was sent as right axillary sentinel lymph node 1. I then again surveyed the right axilla with the navigator. We found another area of high isotope emission in the central axilla. Dissection was carried down to this area. Eventually another dye stained but smaller lymph node was located. This was the focus of the high isotope emission as well. Dissection was carried out around the small lymph node. Eventually it was dissected free. This was sent as right axillary sentinel lymph node 2. We surveyed again for any suspicious nodes. No additional nodes were located. The axilla was quite hemostatic. The axillary wound was closed in layers with 3-0 Monocryl subcutaneous suture here followed by 3-0 Monocryl subcuticular interrupted suture. The skin was closed with a running 4-0 Monocryl skin suture. We quarantined the axillary incision. We turned our attention to the right breast. Reviewing the mammograms and the location of the wire, I henry a proposed incision in the upper mid right breast. Local anesthetic was infiltrated in the area of the anticipated incision. Incision was then made and deepened through the subcutaneous. Crossing veins were cauterized and divided. We brought the wire through the skin and out the lumpectomy wound. I then carefully dissected deeper following the wire. Once once the dissection approximated the location of the lesion, I excised a wider area of breast tissue that included the hook of the wire. This tissue was kept oriented. I placed different color suture to orient the different margins of the specimen. The specimen was sent to x-ray for mammogram. Mammogram of the specimen did contain the lesion. Because of the suspicious nature of the lesion, I did go ahead
--- NOTE | 2022-03-23 14:55 | SUR.PHASEI ---
1553: Simple mask removed.
[2022-03-23] MEDS: fentaNYL CITRATE INJ (*CRX) 100 MCG/2 ML VIAL 25 MCG IV PUSH ×2 (15:12→15:15)
[2022-03-23 15:24] LABS: Glucose Point of Care 178 mg/dl (65-105)
== END 2022-03-23 16:25 | disposition home or self-care (01) ==
PROVIDERS: PCP Internal Medicine; Visit Provider Surgery
PROC: (CPT 19301; principal; 2022-03-23 12:00)
PROC: (CPT 19301; 2022-03-23 12:00)
DX: C50.211 Malignant neoplasm of upper-inner quadrant of right female breast (principal); I10 Essential (primary) hypertension; D83.9 Common variable immunodeficiency, unspecified; E11.9 Type 2 diabetes mellitus without complications; E78.5 Hyperlipidemia, unspecified; K21.9 Gastro-esophageal reflux disease without esophagitis; M79.7 Fibromyalgia; K31.84 Gastroparesis; F41.9 Anxiety disorder, unspecified; J44.9 Chronic obstructive pulmonary disease, unspecified; G47.33 Obstructive sleep apnea (adult) (pediatric); M06.9 Rheumatoid arthritis, unspecified; M35.00 Sjogren syndrome, unspecified; E55.9 Vitamin D deficiency, unspecified; Z79.82 Long term (current) use of aspirin; Z79.51 Long term (current) use of inhaled steroids; Z79.891 Long term (current) use of opiate analgesic; E66.9 Obesity, unspecified; Z68.36 Body mass index [BMI] 36.0-36.9, adult
CPT/HCPCS: 19301; 38525; 19281; 36415; 38792; 76098; 80048; 82948; 88305; 88307; 88342; A9270; A9520; C1713; C1769; J0690; J1100; J1885; J2250; J2370; J2405; J2704; J3010; J7120

== ENCOUNTER 2022-05-10 08:37 | Outpatient (CLI) | payer MEDICARE, SELFPAY ==
--- NOTE | ~2022-05-10 | CT_ITS ---
EXAMINATION: CT diagnostic chest w con DATE: 05/10/2022 09:21 INDICATION: Pulmonary nodules, malignant neoplasm of the right breast TECHNIQUE: Transaxial computed tomographic images of the chest were obtained after the administration of 75 cc of Omnipaque 350 intravenous contrast. The dose-length product (DLP) was 406.49 mGy-cm. Ite rative reconstruction was used. COMPARISON: 07/18/2020 FINDINGS: There is a 2.0 x 1.5 cm nodule of the right lower lobe. There is mild dependent atelectasis . Calcified pulmonary nodules and calcified bilateral hilar lymph nodes are consistent with old granu lomatous disease. No pathologically enlarged thoracic lymph nodes are identified. The heart size is n ormal. Surgical changes are noted in the right breast. The gallbladder is surgically absent. Punctate calcifications in an otherwise normal spleen likely represent healed granulomatous disease. There is a 1.5 cm cyst of the right kidney. There is moderate thoracic spondylosis. IMPRESSION: 1. Indeterminate nodule of the right lower lobe concerning for metastatic disease. CT-guided biopsy i s recommended. Reviewed, dictated and finalized at location A. IMPRESSION: 1. Indeterminate nodule of the right lower lobe concerning for metastatic disea se. CT-guided biopsy is recommended.
[2022-05-10 09:11] LABS: Estimated Glomerular Filt Rate > 60
== END 2022-05-10 08:38 | disposition home or self-care (01) ==
PROVIDERS: PCP Internal Medicine; Visit Provider Radiology Radiation Oncology
DX: C50.911 Malignant neoplasm of unspecified site of right female breast (principal); R91.8 Other nonspecific abnormal finding of lung field
CPT/HCPCS: 71260; Q9967

== ENCOUNTER 2022-05-22 03:24 | Outpatient (CLI) | payer MEDICARE, SELFPAY ==
--- NOTE | 2022-05-15 10:08 | PC.NURSE ---
Pre Radiology instructions Report to the Outpatient Waiting Room, entrance under the green pavilion located off [facility], at time __0900 on date __05/22/22 . Procedure Time: ___1100 . YOU MAY BE MONITORED AT HOSPITAL FOR UP TO 4 HOURS AFTER YOUR PROCEDURE. One visitor will be allowed to accompany the patient into the hospital. The visitor will be instructed to remain with patient at all times or leave the building due to restrictions. We will allow the visitor to come back to the postoperative area when patient is ready. NO children visitors allowed at this time. You and your visitor will be asked to self-screen and do not enter if you have any COVID symptoms. A mask is required within the hospital. Patients are to have no food or drink 6 hours prior to procedure time Driving will be restricted after the procedure, you must have a person to drive you home. Labs will be drawn in preop area and once reviewed, you will be taken to radiology area for procedure. When the procedure is completed, you will be taken to outpatient where you will be monitored for several hours. You may have one visitor in this area. Other than holding anti-coagulants, patient may take other medication(s) as scheduled. Prior to your appointment date patients are instructed to hold anti-coagulants after discussing with ordering provider to stop. If unable to discontinue anti-coagulants please notify radiologist. No aspirin or warfarin (Coumadin) for 7 days prior to the procedure. No clopidogrel (Plavix), ticagrelor (Brilinta), prasugrel (Effient) or dabigatran (Pradaxa) for 5 days prior to the procedure. No rivaroxaban (Xarelto), apixaban (Eliquis), dipyridamole (Aggrenox or Persantine) or cilostazol (Pletal) for 2 days prior to the procedure. Medications to discontinue per physician: ASPIRIN 7 DAYS PRIOR TO PROCEDURE Date to take last dose: ___PT STATES LAST DOSE 05/12/22 Please leave all valuables, including medications, at home the day of procedure. The hospital will not accept responsibility for valuables. Wear comfortable, loose fitting clothing. Follow any additional instructions given to you from ordering provider. Telephone instructions given to __PATIENT and asked if any additional questions and then verbalized understanding. Patient advised to call scheduling provider office or registration scheduling [phone] if any additional questions.
[2022-05-15 10:13] VITALS: BMI 36.8
[2022-05-22] VITALS (9 sets, daily range): BP systolic 104–136; BP diastolic 52–88; PULSE 78–86; RESP 14; TEMP 36.9; O2SAT 94–97
--- NOTE | ~2022-05-22 | XR_ITS ---
EXAMINATION: XR chest 1V portable DATE: 05/22/2022 15:01 INDICATION: Right lung nodule status post percutaneous biopsy. TECHNIQUE: A single frontal view of the chest was obtained. COMPARISON: Chest single view at 1:22 PM FINDINGS: There are airspace opacities in right lower lung zone. Calcified left lung nodules and calc ified left hilar lymph nodes are consistent with old granulomatous disease. No pleural effusion or pn eumothorax. The heart size is normal. IMPRESSION: 1. Stable airspace opacities in right lower lung zone, likely a combination of atelectasis/scarring, nodule suspicious for malignancy, and hemorrhage. Reviewed, dictated and finalized at location A.
--- NOTE | ~2022-05-22 | XR_ITS ---
EXAMINATION: XR chest 1V DATE: 05/22/2022 11:59 INDICATION: Right lung nodule status post percutaneous biopsy. TECHNIQUE: A single frontal view of the chest was obtained. COMPARISON: Chest single view 07/18/2020, chest CT 05/10/2022 FINDINGS: Calcified left lung nodules and calcified left hilar lymph nodes are consistent with old gr anulomatous disease. There is a nodule in lateral segment right middle lobe. There are mild airspace opacities in right perihilar region, consistent with scarring. IMPRESSION: 1. Nodule in lateral segment right middle lobe, consistent with lung nodule suspicious for malignancy and adjacent hemorrhage. Reviewed, dictated and finalized at location A. IMPRESSION: 1. Nodule in lateral segment right middle lobe, consistent with lung nodule monet picious for malignancy and adjacent hemorrhage.
--- NOTE | ~2022-05-22 | XR_ITS ---
EXAMINATION: XR chest 1V portable DATE: 05/22/2022 13:28 INDICATION: Lung nodule status post percutaneous biopsy. TECHNIQUE: A single frontal view of the chest was obtained. COMPARISON: Chest single view at 11:57 AM FINDINGS: There is a nodule in the lateral segment right middle lobe. No pleural effusion or pneumoth orax. The heart size is normal. There are prominent paracardial fat pads. IMPRESSION: 1. Nodule in lateral segment right middle lobe, consistent with nodule suspicious for malignancy and adjacent hemorrhage. Reviewed, dictated and finalized at location A. IMPRESSION: 1. Nodule in lateral segment right middle lobe, consistent with nodule suspicio us for malignancy and adjacent hemorrhage.
--- NOTE | ~2022-05-22 | CT_ITS ---
EXAMINATION: CT biopsy lung w/imaging DATE: 05/22/2022 12:20 INDICATION: Right lung nodule. TECHNIQUE: The procedure including the risks, benefits, and alternatives and possibility of chest tub e placement were discussed with the patient. Risks discussed included infection, hemorrhage, approxim ately 1/3 risk of pneumothorax, approximately 1/10 risk of pneumothorax severe enough to warrant ches t tube placement, and rarely . The patient understood the risks and agreed to proceed. The patie nt was placed prone. The skin overlying the right lung was prepped and draped in sterile fashion. A nesthetic was administered with 1% lidocaine subcutaneously. A 19 gauge outer needle was advanced un jill CT guidance to the lesion of interest. A 20 gauge core biopsy needle was then used to obtain 3 co re biopsy specimens. The needle was removed and the entry site was cleaned and dressed. The mA was ad justed according to patient size. Iterative reconstruction technique was employed. The dose-length pr oduct was 250.43 mGy-cm. There were no immediate complications. FINDINGS: CT images demonstrate the outer needle tip adjacent to a 1.8 cm nodule in right lung middle lobe. IMPRESSION: 1. CT-guided core needle biopsy of a nodule in right lung middle lobe. Reviewed, dictated and finalized at location A.
[2022-05-22 09:58] LABS: Mean Platelet Volume 9.5 fl (7.4-10.4); Platelet Count Result 327 k/mm3 (150-375)
[2022-05-22 10:22] LABS: Prothrombin Time 12.7 Seconds (11.1-14.7)
[2022-05-22] MEDS: ONDANSETRON INJ 4 MG/2 ML VIAL IV PUSH (12:15)
[2022-05-22 13:07] LABS: Glucose Point of Care 126 mg/dl (65-105)
--- NOTE | 2022-05-22 13:25 | SUR.PHASEII ---
PORTABLE CXR DONE.
--- NOTE | 2022-05-22 14:56 | SUR.PHASEII ---
PORTABLE CXR IN PROGRESS.
--- NOTE | 2022-05-22 15:03 | SUR.PHASEII ---
DR. ROTHMAN CALLED AND OKAY'D PATIENT TO GO HOME.
== END 2022-05-22 15:17 | disposition home or self-care (01) ==
PROVIDERS: PCP Internal Medicine; Referring Provider Radiology Radiation Oncology; Visit Provider Radiology Diagnostic Radiology
PROC: BB24ZZZ Computerized Tomography (CT Scan) of Bilateral Lungs (ICD-10-PCS; CPT 32408; principal; 2022-05-22 11:00)
DX: R91.1 Solitary pulmonary nodule (principal); C50.911 Malignant neoplasm of unspecified site of right female breast
CPT/HCPCS: 32408; 36415; 71045; 82948; 85049; 85610; 88305; J0131; J2405

== ENCOUNTER 2022-05-30 12:01 | Outpatient (CLI) | payer MEDICARE, SELFPAY ==
--- NOTE | ~2022-05-30 | DEXA_ITS ---
Bone Density Report Name: TAMARA SANTOS Age: 71 Sex: Female Ethnicity: White Date of : 1950 Indication: postmenopausal; screening for osteoporosis; inflammatory bowel disease; cancer; asthma or emphysema; hysterectomy; rheumatoid arthritis; Referring Provider: PRABHA ANN Study: Bone densitometry was performed. Exam Date: May 30, 2022 Accession number: [id number] Bone Density: Region BMD T-score Z-score Classification AP Spine(L1-L4) 1.219 1.6 3.7 Normal Femoral Neck (Left) 0.758 -0.8 1.0 Normal Total Hip (Left) 1.103 1.3 2.9 Normal Femoral Neck (Right) 0.820 -0.3 1.6 Normal Total Hip (Right) 1.129 1.5 3.1 Normal Total Hip Mean 1.116 1.4 3.0 Normal World Health Organization criteria for BMD impression classify patients as: Normal (T-score at or above -1.0), Osteopenia (T-score between -1.0 and -2.5), or Osteoporosis (T-score at or below -2.5). 10-year Fracture Risk: FRAX not reported because: All T-scores for Spine Total, Hip Total, Femoral Neck at or above -1.0 Clinical Information Provided by Patient: Has rheumatoid arthritis Has used the following medications: Vitamin D, Calcium Has the following medical conditions: Asthma or Emphysema, Cancer, Inflammatory bowel diseases, Hysterectomy Patient maximum height was 61 Menopause Age: 53 Drinks caffeinated beverages Onset of menses at age 13 Number of children 3 Impression: The patient has normal bone mass. Discussion: BONE DENSITY IS ABOVE THE MINIMUM DESIRABLE LEVEL AT ALL SKELETAL SITES TESTED. This patient?s bone mineral density is above the minimum desirable level (T-score -1.0 or better) at all sites measured. The patient should follow a healthful lifestyle (good nutrition with adequate calcium and vitamin D, and appropriate weight-bearing exercise). Follow-Up: Consider repeating this study in 5 years or sooner if there is some new clinical indication. Reported by: AUSTIN on 05/30/2022 12:37:00 PM. Reviewed, dictated and finalized at location A.
== END 2022-05-30 12:02 | disposition home or self-care (01) ==
PROVIDERS: PCP Internal Medicine; Visit Provider Internal Medicine
DX: Z78.0 Asymptomatic menopausal state (principal)
CPT/HCPCS: 77080; 77412

== ENCOUNTER 2022-11-28 13:43 | Outpatient (CLI) | payer MEDICARE, SELFPAY ==
--- NOTE | ~2022-11-28 | CT_ITS ---
CT of the Abdomen and Pelvis: Indication: Abdominal hernia Technique: 2.5 mm axial scans were obtained through the abdomen and pelvis following intravenous adm inistration of 100 cc of Omnipaque 350. Dose reduction technique was used on this scan by utilizing a utomated exposure control and iterative reconstruction technique. The dose-length product (DLP) was 1 097.93 mGy-cm. COMPARISON: 02/11/2015 Findings: Scans through the lung bases are unremarkable. There is probable diffuse fatty infiltration of liver. Cholecystectomy clips are noted. Calcified spl enic granulomas are present. The pancreas, adrenals and kidneys are within normal limits. No evidenc e of aortic aneurysm. No lymphadenopathy. No bowel obstruction or bowel wall thickening. There is evidence of prior right hemicolectomy. There is a fat-containing ventral hernia just superior to the umbilicus. There is also a small fat-containi ng umbilical hernia. The region of the enterocolonic anastomosis is adjacent to, but not within the v entral hernia sac.. Images through the pelvis were performed. Urinary bladder unremarkable. No adnexal mass evident. No a scites. Impression: Small ventral fat-containing hernia superior to the umbilicus. Large bowel is adjacent to, but not fr ankly within, the hernia sac. Additional small umbilical fat-containing hernia. Diffuse fatty infiltration of liver. Reviewed, dictated and finalized at [facility]. Impression: Small ventral fat-containing hernia superior to the umbilicus. Large bowel is a djacent to, but not frankly within, the hernia sac. Additional small umbilical fat-containing hernia. Diffuse fatty infiltration of liver.
== END 2022-11-28 13:44 | disposition home or self-care (01) ==
PROVIDERS: PCP Internal Medicine; Visit Provider Internal Medicine
DX: K42.9 Umbilical hernia without obstruction or gangrene (principal); K76.0 Fatty (change of) liver, not elsewhere classified; R10.9 Unspecified abdominal pain
CPT/HCPCS: 74177; Q9967

== ENCOUNTER 2022-12-27 13:53 | Outpatient (CLI) | payer MEDICARE, SELFPAY ==
--- NOTE | ~2022-12-27 | MM_ITS ---
EXAMINATION: MM screening tata BI w gela HISTORY: Screening. Right breast cancer status post lumpectomy. TECHNIQUE: Craniocaudal and mediolateral oblique 3-D tomosynthesis images were obtained and synthetic 2-D images were generated. CAD analysis was submitted and interpreted. COMPARISON: Comparison to multiple prior studies sequentially, with oldest reviewed study dated 05/24. BREAST PARENCHYMAL COMPOSITION: There are scattered areas of fibroglandular density. FINDINGS: There is architectural distortion in the upper inner quadrant of the right breast, consiste nt with previous lumpectomy. The left breast is stable without evidence for malignancy. IMPRESSION: 1. Probable benign architectural distortion of the right breast secondary to recent lumpectomy. 2. Recommend diagnostic right mammogram in 6 months. BI-RADS CATEGORY 3-PROBABLY BENIGN FINDING Reviewed, dictated and finalized at location A. IMPRESSION: 1. Probable benign architectural distortion of the right breast secondary to re cent lumpectomy. 2. Recommend diagnostic right mammogram in 6 months. BI-RADS CATEGORY 3-PROBABLY BENIGN FINDING
== END 2022-12-27 13:54 | disposition home or self-care (01) ==
LOC: ANHIMG 13:57
PROVIDERS: PCP Internal Medicine; Visit Provider Internal Medicine Hematology & Oncology
DX: Z12.31 Encounter for screening mammogram for malignant neoplasm of breast (principal)
CPT/HCPCS: 77063; 77067

== ENCOUNTER 2023-03-28 07:35 | Outpatient (CLI) | payer MEDICARE, SELFPAY ==
[2023-03-28 08:40] LABS: Influenza A QL RT-PCR Negative (Negative); Influenza B QL RT-PCR Negative (Negative); SARS-CoV-2 RNA PCR Positive (Negative)
== END 2023-03-28 07:36 | disposition home or self-care (01) ==
LOC: ANHLAB 07:37
PROVIDERS: PCP Internal Medicine; Visit Provider Internal Medicine
DX: R05.9 Cough, unspecified (principal)
CPT/HCPCS: 87636

== ENCOUNTER 2023-06-22 09:32 | Outpatient (CLI) | payer MEDICARE, SELFPAY ==
--- NOTE | 2023-06-22 10:00 | ECG_ITS ---
Measurements Intervals [place] Rate: 76 P: 67 NE: 171 QRS: 9 QRSD: 93 T: 30 QT: 384 QTc: 434 Interpretive Statements SINUS RHYTHM POOR R-WAVE PROGRESSION BORDERLINE ECG COMPARED TO ECG 07/18/2020 02:27:58 NO SIGNIFICANT DIFFERENCE Electronically Signed On 06-22-2023 13:30:17 TINSEL MACHINE OPERATOR by Arturo Phelps M.D.
[2023-06-22 11:29] LABS: Alanine Aminotransferase 20 U/L (6-35); Albumin Level 4.3 g/dL (3.5-5.1); Alkaline Phosphatase 87 U/L (38-126); Anion Gap 12 mmol/L (8-16); Aspartate Amino Transferase 23 U/L (14-36); Bilirubin,Total 0.7 mg/dL (0.2-1.3); Blood Urea Nitrogen 12 mg/dL (7-17); Calcium 9.4 mg/dL (8.4-10.2); Carbon Dioxide 24 mmol/L (22-30); Chloride 103 mmol/L (98-107); Estimated Glomerular Filt Rate > 60; Glucose 131 mg/dL (65-110); Potassium 3.5 mmol/L (3.4-5.0); Sodium 139 mmol/L (137-145)
== END 2023-06-22 09:33 | disposition home or self-care (01) ==
LOC: ANHLAB 09:36
PROVIDERS: PCP Internal Medicine; Visit Provider Podiatrist Foot & Ankle Surgery
DX: Z01.818 Encounter for other preprocedural examination (principal); R03.0 Elevated blood-pressure reading, without diagnosis of hypertension
CPT/HCPCS: 36415; 80053; 93005

== ENCOUNTER 2023-07-27 10:05 | Outpatient (CLI) | payer MEDICARE, SELFPAY ==
--- NOTE | ~2023-07-27 | MM_ITS ---
EXAMINATION: MM diagnostic tata RT w gela HISTORY: Six-month follow-up after right breast lumpectomy TECHNIQUE: Craniocaudal, mediolateral, and mediolateral oblique 3-D tomosynthesis images of the right breast were performed and synthetic 2-D images were generated. CAD analysis was submitted and interp reted. COMPARISON: 12/27/2022,12/15/2021, 12/06/2021, 06/15/2020, 05/22/2020 BREAST PARENCHYMAL COMPOSITION: There are scattered areas of fibroglandular density. FINDINGS: Stable lumpectomy changes are present in the posterior third of the upper inner quadrant of the right breast. No suspicious mass, calcification, or architectural distortion are identified. IMPRESSION: 1. Right breast lumpectomy changes without mammographic evidence of malignancy. 2. Routine screening mammography is recommended. BI-RADS Category 2: Benign finding(s). Reviewed, dictated and finalized at location A. [employer]
== END 2023-07-27 10:06 | disposition home or self-care (01) ==
LOC: ANHIMG 10:06
PROVIDERS: PCP Internal Medicine; Visit Provider Internal Medicine Hematology & Oncology
DX: C50.411 Malignant neoplasm of upper-outer quadrant of right female breast (principal); Z17.0 Estrogen receptor positive status [ER+]
CPT/HCPCS: 77061; 77065; G0279

== ENCOUNTER 2023-11-09 14:14 | Outpatient (CLI) | payer MEDICARE, SELFPAY ==
--- NOTE | ~2023-11-09 | XR_ITS ---
EXAMINATION: XR chest 2V DATE: 11/09/2023 14:38 INDICATION: Acute upper respiratory infection. TECHNIQUE: Frontal and lateral views of the chest were obtained. COMPARISON: Chest single view 05/22/22 FINDINGS: There are staple lines in right lung. There is mild atelectasis versus scarring in right marge ng. No pleural effusion or pneumothorax. The heart size is normal. Calcified mediastinal lymph nodes are consistent with old granulomatous disease. Surgical clips in the right upper quadrant are likely from cholecystectomy. There is mild chronic anterior wedging of a midthoracic vertebral body. IMPRESSION: 1. Mild atelectasis versus scarring in right lung. Reviewed, dictated and finalized at location E.
== END 2023-11-09 14:15 | disposition home or self-care (01) ==
LOC: ANHIMG 14:17
PROVIDERS: PCP Internal Medicine; Visit Provider Internal Medicine
DX: R05.3 Chronic cough (principal); J06.9 Acute upper respiratory infection, unspecified; R09.89 Other specified symptoms and signs involving the circulatory and respiratory systems
CPT/HCPCS: 71046

== ENCOUNTER 2023-11-10 09:45 | Outpatient (CLI) | payer MEDICARE, SELFPAY | END 2023-11-10 09:46 | disposition home or self-care (01) | LOC: ANHLAB 09:48 | PROVIDERS: PCP Internal Medicine; Visit Provider Internal Medicine | DX: J06.9 Acute upper respiratory infection, unspecified (principal); B37.0 Candidal stomatitis; K13.70 Unspecified lesions of oral mucosa | CPT/HCPCS: 87070; 87102; 87107; 87205; 87206 ==

== ENCOUNTER 2023-12-21 13:08 | Outpatient (CLI) | payer MEDICARE, SELFPAY ==
--- NOTE | ~2023-12-21 | CT_ITS ---
EXAMINATION:CT diagnostic chest wo con DATE: 12/21/2023 13:35 INDICATION: Bronchiectasis, uncomplicated. TECHNIQUE: Computed tomography (CT) of the chest was performed without intravenous contrast. Automate d exposure control and iterative reconstruction technique were employed. The dose-length product (DLP ) was 476.38 mGy-cm. COMPARISON: Chest CT 05/10/2022 FINDINGS: There is mild scarring at right lung apex. A calcified left lung nodule is consistent with old granulomatous disease. There is mild atelectasis bilaterally. There is bronchiectasis in the uppe r lobes. There are changes of wedge resection in right lung. No pleural effusion. The heart size is n ormal. There are coronary artery calcifications. No pericardial effusion. There is diffuse hepatic st eatosis. Calcifications in the liver and spleen are consistent with old granulomatous disease. There is an old healed right rib fracture. There are bridging endplate osteophytes at multiple levels in th e spine, consistent with diffuse idiopathic skeletal hyperostosis (DISH). There is moderate thoracic spondylosis. IMPRESSION: 1. Stable bronchiectasis in the upper lobes. Reviewed, dictated and finalized at location E.
== END 2023-12-21 13:09 | disposition home or self-care (01) ==
LOC: ANHIMG 13:08
PROVIDERS: PCP Internal Medicine; Visit Provider Physician Assistant
DX: J47.9 Bronchiectasis, uncomplicated (principal); J06.9 Acute upper respiratory infection, unspecified
CPT/HCPCS: 71250

== ENCOUNTER 2024-02-04 08:16 | Outpatient (CLI) | payer MEDICARE, SELFPAY ==
--- NOTE | ~2024-02-04 | MM_ITS ---
EXAMINATION: MM screening tata BI w gela HISTORY: Screening TECHNIQUE: Craniocaudal and mediolateral oblique 3-D tomosynthesis images were obtained and synthetic 2-D images were generated. CAD analysis was submitted and interpreted. COMPARISON: Comparison to multiple prior studies sequentially, with oldest reviewed study dated 12/15. BREAST PARENCHYMAL COMPOSITION: Not dense: There are scattered areas of fibroglandular density. FINDINGS: There are changes of right lumpectomy for breast cancer. There is no evidence of suspicious mass, calcification, or architectural distortion to suggest malignancy in either breast. There has b een no suspicious interval change. IMPRESSION: 1. No mammographic evidence of malignancy. 2. Recommend routine screening mammography in one year. BI-RADS Category 2: Benign finding(s). Reviewed, dictated and finalized at location B.
== END 2024-02-04 08:17 | disposition home or self-care (01) ==
LOC: ANHIMG 08:17
PROVIDERS: PCP Internal Medicine; Visit Provider Internal Medicine Hematology & Oncology
DX: Z12.31 Encounter for screening mammogram for malignant neoplasm of breast (principal)
CPT/HCPCS: 77063; 77067

== ENCOUNTER 2024-06-12 09:02 | Outpatient (CLI) | payer MEDICARE, SELFPAY ==
--- NOTE | 2024-06-12 12:22 | WPDPFTINT ---
PFT Procedure Performed PFT Procedure Performed Spirometry with Pre/Post Bronchodilator Plethysmography (Lung Vol) Diffusing Cap (DLCO) Flow Vol Loop PFT Interpretation This is a pulmonary function test with pre and post-bronchodilator spirometry, plethysmography and diffusing capacity. The test was performed and results interpreted in accordance with the 2019 and 2005 ATS/ERS Task Force guidelines respectively using the Global Lung Function Initiative-2012 reference equations. Patient demonstrated good effort and cooperation. Reproducibility criteria were met. The quality of the pre bronchodilator spirometry maneuver was Grade A and post bronchodilator spirometry maneuver was Grade A. Findings: Spirometry: The contour the expiratory flow tracing demonstrates a mid expiratory plateau or knee pattern in 3 of 3 pre bronchodilator maneuvers and 2 of 3 post bronchodilator maneuvers. there is decreased maximal expiratory airflow at low lung volumes with a concave expiratory flow tracing. The contour the inspiratory flow tracing is normal. The pre bronchodilator FVC is 2.42 L, 113% predicted. The pre bronchodilator FEV1 is 1.51 L, 90% predicted. The pre bronchodilator FEV1: FVC ratio 63%. The post bronchodilator FVC is 2.58 L, representing a 7% increase. The post bronchodilator FEV1 is 1.64 L, representing a 9% increase. The post bronchodilator FEV1: FVC ratio 64%. Plethysmography: The total lung capacity is 4.37 L, 108% predicted. The functional residual capacity is 2.50 L, 101% predicted. The residual volume is 1.56 L, 81% predicted. Diffusing capacity: The diffusing capacity unadjusted for hemoglobin and carboxyhemoglobin is 16.5, 87% predicted. The diffusing capacity adjusted for alveolar volume is 4.15, 95% predicted. In comparison to previous pulmonary function testing on 07/29/2019 the mid expiratory plateau or knee pattern was present. The post bronchodilator FVC is unchanged from 2.48 L to 2.58 L. The post bronchodilator FEV1 is unchanged from 1.62 L to 1.64 L. The total lung capacity is decreased from 5.56 L to 4.37 L. The functional residual capacity is decreased from 3.44 L to 2.50 L. The residual volume has decreased from 2.87 L to 1.56 L. The diffusing capacity unadjusted for hemoglobin and carboxyhemoglobin is unchanged from 18.1 to 16.5. The diffusing capacity adjusted for alveolar volume is decreased from 4.86 to 4.15. Impression: There is a reproducible knee pattern of the expiratory flow tracing which can be a normal variant or pathologic and has been attributed to a choke point section of the bronchial tree. The normal variant is more common in younger female patients, decreases with age and is more pronounced in the post bronchodilator efforts. The pattern has also been described with kyphosis, kyphoscoliosis, central obstructing mass, and post lung transplantation. Otherwise, there is a mild obstructive abnormality with a normal FEV1. There is no significant improvement after inhaling a single dose of albuterol. the lung volumes are normal. The diffusing capacity is normal. In comparison to previous pulmonary function testing on 07/29/2019 there has been no significant change in the knee pattern of the expiratory flow tracing. There has been a greater than anticipated time dependent decrease in the total lung capacity, functional residual capacity, residual volume and diffusing capacity adjusted for alveolar volume with no significant change in the FVC, FEV1 or diffusing capacity unadjusted for hemoglobin and carboxyhemoglobin. Clinical correlation is recommended.
== END 2024-06-12 09:03 | disposition home or self-care (01) ==
PROVIDERS: PCP Internal Medicine; Visit Provider Internal Medicine Critical Care Medicine
DX: J98.4 Other disorders of lung (principal)
CPT/HCPCS: 94060; 94726; 94729

== ENCOUNTER 2024-06-12 10:18 | Outpatient (CLI) | payer MEDICARE, SELFPAY ==
--- NOTE | ~2024-06-12 | DEXA_ITS ---
Bone Density Report Name: TAMARA SANTOS Age: 73 Sex: Female Ethnicity: White Date of : 1950 Indication: postmenopausal; screening for osteoporosis; inflammatory bowel disease; history of glucocorticoids; cancer; asthma or emphysema; hysterectomy; rheumatoid arthritis; Referring Provider: CECI CHILD Study: Bone densitometry was performed. Exam Date: June 12, 2024 Accession number: [id number] Bone Density: Region BMD T-score Z-score Classification AP Spine(L1-L4) 1.204 1.4 3.7 Normal Femoral Neck (Left) 0.841 -0.1 1.9 Normal Total Hip (Left) 1.193 2.1 3.7 Normal Femoral Neck (Right) 0.801 -0.4 1.5 Normal Total Hip (Right) 1.261 2.6 4.3 Normal Total Hip Mean 1.227 2.4 4.0 Normal World Health Organization criteria for BMD impression classify patients as: Normal (T-score at or above -1.0), Osteopenia (T-score between -1.0 and -2.5), or Osteoporosis (T-score at or below -2.5). 10-year Fracture Risk: FRAX not reported because: All T-scores for Spine Total, Hip Total, Femoral Neck at or above -1.0 Previous Exams: Region Exam Age BMD T-score BMD Change BMD Change Date g/cm2 vs Baseline vs Previous AP Spine (L1-L4) 06/12/2024 73 1.204 1.4 0.030 (2.6%)# -0.015 (-1.2%) 05/30/2022 71 1.219 1.6 0.045 (3.8%)# 0.045 (3.8%)# 05/22/2020 69 1.174 1.2 Total Hip(Left) 06/12/2024 73 1.193 2.1 0.039 (3.4%)* 0.090 (8.2%)* 05/30/2022 71 1.103 1.3 -0.051 (-4.4%) -0.051 (-4.4%) 05/22/2020 69 1.154 1.7 Total Hip(Right) 06/12/2024 73 1.261 2.6 0.040 (3.3%)* 0.132 (11.7%)* 05/30/2022 71 1.129 1.5 -0.092 (-7.5%) -0.092 (-7.5%) 05/22/2020 69 1.221 2.3 *Denotes significance at 95% confidence level, LSC for AP Spine = 0.022 g/cm2, LSC for Total Hip = 0.027 g/cm2 # Denotes dissimilar scan types or analysis methods Clinical Information Provided by Patient: Has taken Glucocorticoids Has rheumatoid arthritis Has used the following medications: HRT (i.e. estrogen/hormone therapy), Vitamin D Has the following medical conditions: Asthma or Emphysema, Cancer, Inflammatory bowel diseases, Hysterectomy Patient maximum height was 61 Menopause Age: 53 Drinks caffeinated beverages Onset of menses at age 13 Number of children 3 Impression: The patient has normal bone mass. The patient has risk factors, including: history of glucocorticoid therapy. No significant bone loss was observed. Discussion: BONE DENSITY IS ABOVE THE MINIMUM DESIRABLE LEVEL AT ALL SKELETAL SITES TESTED. This patient?s bone mineral density is above the minimum desirable level (T-score -1.0 or better) at all sites measured. The patient should follow a healthful lifestyle (good nutrition with adequate calcium and vitamin D, and appropriate weight-bearing exercise). Follow-Up: Consider repeating this study in 5 years or sooner if there is some new clinical indication. Reported by: SEDRICK on 06/12/2024 11:01:00 AM. Reviewed, dictated and finalized at location AShannon ANAYA
== END 2024-06-12 10:19 | disposition home or self-care (01) ==
LOC: ANHIMG 10:20
PROVIDERS: PCP Internal Medicine; Visit Provider Internal Medicine Hematology & Oncology
DX: M85.89 Other specified disorders of bone density and structure, multiple sites (principal); Z13.820 Encounter for screening for osteoporosis
CPT/HCPCS: 77080

== ENCOUNTER 2025-01-19 08:47 | Outpatient (CLI) | payer MEDICARE, SELFPAY | END 2025-01-19 08:48 | disposition home or self-care (01) | LOC: ANHAUDIO 08:48 | PROVIDERS: PCP Internal Medicine; Visit Provider Otolaryngology | DX: H90.41 Sensorineural hearing loss, unilateral, right ear, with unrestricted hearing on the contralateral side (principal); H74.8X3 Other specified disorders of middle ear and mastoid, bilateral; H93.13 Tinnitus, bilateral; H92.01 Otalgia, right ear; R42 Dizziness and giddiness | CPT/HCPCS: 92557; 92567 ==

== ENCOUNTER 2025-01-22 08:07 | Outpatient (CLI) | payer MEDICARE, SELFPAY ==
--- NOTE | ~2025-01-22 | NM_ITS ---
EXAMINATION: NM morris stress w perfusion DATE: 01/22/2025 10:01 INDICATION: Abnormal findings on diagnostic imaging of the heart TECHNIQUE: Rest images were obtained following intravenous administration of 10 mCi Tc99m tetrofosmin (Myoview). The patient was infused intravenously with Lexiscan (Regadenoson). Then, 33.3 mCi Tc99m t etrofosmin (Myoview) was administered intravenously, and stress images were obtained initially in the supine position with repeat post stress images obtained in the prone position. Data was reconstructe d into short axis and horizontal and vertical long axis SPECT images. Gated SPECT images were also ob tained. COMPARISON: None. FINDINGS: There is a perfusion defect involving the entire inferior wall and the mid inferoseptal seg ment on the rest and stress imaging obtained in the supine position all but the apical inferior segme nt normalizing on the post stress imaging. Similarly there is a mild perfusion defect on the rest laurie ging at the mid anterior and mid basilar segments which is significantly smaller on the supine post s tress images and which normalizes on the prone post stress images likely related to breast attenuatio n artifact. There is normal left ventricular chamber size, wall motion and ejection fraction. Left v entricular ejection fraction measures >70%. IMPRESSION: 1. Regions of artifactual decreased activity along the anterior wall and more extensively along the i nferior and inferoseptal wall on rest and poststress imaging obtained in the supine position which ne tara completely normalizes on the post stress imaging in the prone position. Small region of residual mild decreased activity at the apical inferior segment which is equivocal for additional attenuation artifact versus small mild infarct or ischemia. 2. Left ventricular ejection fraction measuring >70%. Reviewed, dictated and finalized at location B. IMPRESSION: 1. Regions of artifactual decreased activity along the anterior wall and more e xtensively along the inferior and inferoseptal wall on rest and poststress imag ing obtained in the supine position which nearly completely normalizes on the p ost stress imaging in the prone position. Small region of residual mild decreas ed activity at the apical inferior segment which is equivocal for additional at tenuation artifact versus small mild infarct or ischemia. 2. Left ventricular ejection fraction measuring >70%.
--- OUTSIDE RECORDS SUMMARY | 2025-01-22 08:10 | XMS_ITS | Encounter Summary ---
Author Organization [facility] Address [address] [place] [address] Care Team Providers Care Inductor Tester Name Role Phone Devin Saldana MD Primary Care Provider [phone] Encounter Details Date Type Department Care Team (Late st Contact Info) Description 02/14/2023 Lab Requisition [facility] [address] [place] [id number] Carmen Florez MD [address] [facility] [place] [address] Social History Tobacco Use Types Packs/Day Years Used Date Smoking Tobacco: Never Smokeless Tobacco: Never Alcohol Use Standard Drinks/Week Comments Not Currently 1 (1 standard drink = 0.6 oz pur e alcohol) Comments Unknown Sex and Gender Information Value Date Recorded Sex Assigned at Not on file Legal Sex Female 6:24 PM [employer] Gender Identity Not on file Sexual Orientation Not on file documented as of this encounter Plan of Treatment Not on file documented as of this encounter Procedures Procedure Name Priority Date/Time Associated Diagnosis Comments DERMATOPATHOLOGY Routine 02/14/2023 9:29 AM CDT documented in this encounter Results * DERMATOPATHOLOGY (02/14/2023 9:29 AM CDT) Case Report Dermatopathology Report Case: [id number] Authorizing Provider: Carmen Florez MD Collected: 02/14/2023 09:29 AM Ordering Location: [facility] Received: 02/14/2023 04:32 PM Pathologist: Luisa Ray MD Specimen: Skin, right nasal side wall 3 2:20 PM CDT DERMATOPATHOLOGY LABORATORY Final Diagnosis Specimen A. 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 The specimen consists of a shave biopsy measuring 3x4x1 mm. Jar 0. 2:20 PM CDT DERMATOPATHOLOGY LABORATORY Microscopic Description Specimen A. SKIN, right nasal side wall: The epidermis is largely unremarkable. A mild perivascular and perifollicular inflammatory infiltrate composed predominantly of lymphocytes is noted in the upper and mid dermis. Dilated thin-walled superficial dermal blood vessels are observed. Solar elastosis is present. Intrafollicular Demodex mites are noted. Additional deeper sections were obtained and reviewed. 3 2:20 PM CDT DERMATOPATHOLOGY LABORATORY Disclaimer An external and internal positive and negative controls are appropriate for the histochemical, immunohistochemical and immunofluorescence stain(s) in this case (if any), except where stated explicitly. The performance characteristics of the stain(s) cited in this report were developed and its performance characteristic determined by the Dermatopathology Laboratory at [facility], directed by Dr. Radha Galvan. These tests need not be, and therefore are not, approved by the [place] Food and Drug Administration. The tests are used for clinical purposes. Billing Codes Specimen Charges Stain Charges 01656 1 3 2:20 PM CDT DERMATOPATHOLOGY LABORATORY Embedded Images 3 2:20 PM CDT DERMATOPATHOLOGY LABORATORY Pathology/Cytolo gy TISSUE SPECIMEN FROM SKIN / Unknown 02/14/2023 9:29 AM CDT 02/14/2023 4:32 PM CDT Carmen Florez MD LAB - PATHOLOGY/CYTOLOGY ORD ERABLES Final Result DERMATOPATHOLOGY LABORATORY [facility] Department of Dermatology [facility] [address] [place] [address], [address] [phone] documented in this encounter Visit Diagnoses Not on filedocumented in this encounter Care Teams Inductor Tester Relationship Specialty Start Date End Date Devin Saldana MD [address] [place] [address] PCP - General 11/02/09 documented as of this encounter
--- OUTSIDE RECORDS SUMMARY | 2025-01-22 08:11 | XMS_ITS | Clinical Summary ---
Author Organization [facility] Address [address], [facility] [address] [place] [address] Phone Care Team Providers Care Teaching Pastor Name Role Phone Devin Saldana MD Primary Care Provider [phone] Social History Tobacco Use Types Packs/Day Years Used Date Smoking Tobacco: Never Assessed Comments Unknown Sex and Gender Information Value Date Recorded Sex Assigned at Not on file Legal Sex Female 7:29 PM CDT Gender Identity Not on file Sexual Orientation Not on file Plan of Treatment Health Maintenance Due Date Last Done Comments DEXA Bone Density 1950 Hepatitis C Virus (HCV) Screening 1950 TdaP Immunization 1950 Cologuard 10/30/2001 Immunochemical Fecal Occult Blood 10/30/2001 Mammogram 10/30/2001 Pneumococcal Immunization (5 0+ years) (1 of 1 - PCV) 10/30/2001 Zoster Immunization (1 of 2) 10/30/2001 Influenza Immunization (#1) 2024 SARS-COV-2 Immunization ( - 2023- season) 2024 Colonoscopy 01/14/2025 01/15/2020 Colorectal Cancer Screening 01/14/2025 Respiratory Syncytial Virus (RSV) Immunization (Adult) (1 - 1-dose 75+ series) 10/30/2026 Hepatitis B Immunization Aged Out No longer eligible based on patient's age to complete this topic Meningococcal Immunization (ACWY) Aged Out No longer eligible based on patient's age to complete this topic Rotavirus Immunization Aged Out No lo nger eligible based on patient's age to complete this topic Procedures Procedure Name Priority Date/Time Associated Diagnosis Comments COLONOSCOPY Routine 01/15/2020 from Last 3 Months or Most Recently Relevant to Health Maintenance Results * COLONOSCOPY (01/15/2020) Kb Santacruz DO PROCEDURE/MINOR SURGICAL ORDERA BLES Final Result from Last 3 Months or Most Recently Relevant to Health Maintenance Insurance MEDICARE C [facility] Care Teams Teaching Pastor Relationship Specialty Start Date End Date Devin Saldana MD PCP - General Internal Medicine 08/25/19
--- OUTSIDE RECORDS SUMMARY | 2025-01-22 08:11 | XMS_ITS | Clinical Summary ---
Author Organization [facility] Address [address] [place] [address] Care Team Providers Care Obstetrics Technician Name Role Phone Devin Saldana MD Primary Care Provider [phone] Source Comments [facility],non-owned Affiliates and Associated Physician Practices is amultiple site organization consisting of ambulatory clinics and hospital sitesin [place], [place], [place] and [place]. This disclosure is being madepursuant to the Care Everywhere program and may not contain all information available regarding this patient. Last updated 18.[facility] Allergies Active Allergy Reactions Criticality Noted Date Comments Dheeraj Inhibitors Rash Medium 09/04/2012 Cephalexin Rash Medium 09/04/2012 Ciprofloxacin Angioedema High 09/04/2012 Codeine Unknown 05/12/2021 Levofloxacin Unknown 05/12/2021 Metronidazole Rash Medium 01/29/2018 Tramadol Unknown 05/12/2021 Medications * Be aware that medications may not be up to date on this document. Alwaysverify current medications with the patient. albuterol HFA (PROVENTIL;VENT CLEMENTE;PROAIR) 108 (90 Base) MCG/ACT inhaler Inhale 1 (one) puff by mouth every 4 hours as needed 1 Active Apremilast (OTEZLA) 30 MG Take 1 (one) tablet by mouth 2 times daily 0 Active atorvastatin (LIPITOR) 10 MG tablet Take 1 (one) tablet by mouth at bedtime Active azaTHIOprine (IMURAN) 50 MG tablet Take 1 (one) tablet to 2 (two) tablets by mouth as directed 1 Active fluticasone propionate (FLONASE) 50 MCG/ACT nasal spray [place] 1 (one) spray into each nostril once daily Active fluticasone-constantin meterol (ADVAIR/WIXELA) 250-50 MCG/DOSE inhaler Inhale 1 (one) puff by mouth 2 times daily Active hydroCHLOROthia zide (MICROZIDE) 12.5 MG capsule Take 1 (one) capsule by mouth once daily 1 Active metFORMIN (GLUCOPHAGE) 500 MG tablet Take 2 (two) tablets by mouth 2 times daily Active potassium chloride ER (KLOR-CON M) 20 MEQ tablet Take 1 (one) tablet by mouth 3 times daily 0 Active predniSONE (DELTASONE) 2.5 MG tablet Take 1 (one) tablet to 3 (three) tablets by mouth as directed 0 Active telmisartan (MICARDIS) 80 MG tablet Take 1 (one) tablet by mouth once daily 1 Active verapamil CR (ISOPTIN-SR) 180 MG tablet Take 1 (one) tablet by mouth once daily 0 Active aspirin EC (ECOTRIN) 81 MG tablet Take 1 (one) tablet by mouth once daily Active famotidine (PEPCID) 40 MG tablet Take 1 (one) tablet by mouth 2 times daily 1 Active nystatin (MYCOSTATIN) 312326 UNIT/ML suspension Take 1 mL by mouth 2 times daily as needed 1 Active sertraline (ZOLOFT) 100 MG tablet Take 1 (one) tablet by mouth once daily 1 Active zolpidem (AMBIEN) 10 MG tablet Take 1 (one) tablet by mouth nightly as needed 1 Active Multiple Vitamins-Minera ls (MULTI VITAMIN/MINERAL S) TABS Take 1 (one) tablet by mouth once daily Active LORazepam (ATIVAN) 1 MG tablet Take 1 (one) tablet by mouth every 24 hours as needed for Anxiety or Insomnia 1 Active loratadine (CLARITIN) 10 MG tablet Take 1 (one) tablet by mouth once daily as needed Active celecoxib (CELEBREX) 200 MG capsule Take 1 (one) capsule by mouth 2 times daily as needed Active bumetanide (BUMEX) 1 MG tablet Take 1 (one) tablet by mouth every 24 hours as needed Active diazePAM (VALIUM) 5 MG tablet Take 1 (one) tablet by mouth at bedtime 30 tablet 2 1 Active metFORMIN (GLUCOPHAGE) 1000 MG tablet Take 1 (one) tablet by mouth 2 times daily 2 Active anastrozole (Arimidex) 1 MG tablet Take 1 (one) tablet by mouth once daily 3 Active azithromycin (Zithromax) 250 MG tablet Take 2 (two) tablets by mouth as needed 3 Active Cholecalciferol 50 MCG (2000 UT) Take 1 (one) tablet by mouth once daily Active cycloSPORINE (Restasis) 0.05 % ophthalmic suspension 1 (one) drop by Ophthalmic route 2 times daily Active diazePAM (Valium) 5 MG tablet Take 1 (one) tablet by mouth once daily as needed 1 Active fluticasone propionate (Flonase) 50 MCG/ACT nasal spray [place] 2 (two) sprays into the nose once daily as needed Active levalbuterol (Xopenex) 1.25 MG/3ML nebulizer solution Inhale 3 mL by mouth as needed 2 Active pantoprazole EC (Protonix) 40 MG tablet Take 1 (one) tablet by mouth 2 times daily 2 Active fluticasone-constantin meterol (Advair/Wixela) 500-50 MCG/ACT inhaler Inhale 1 (one) puff by mouth as needed 3 Active azelastine (Astelin) 0.1 % nasal spray [place] 1 (one) spray into each nostril 2 times daily 90 mL 11 3 Active Active Problems Problem Noted Date Diagnosed Date Neck pain 06/09/2021 Otalgia of both ears 05/12/2021 Right ear pain 05/12/2021 Tinnitus 05/12/2021 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 (FLUZONE HIGH-DOSE QUADRIVALENT; 65Y+), 0.7 ML (HD-IIV4) 04/11/2022,05/11/2021,05/11/2020 INFLUENZA VACCINE, TRIV. 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 Gender Identity Not on file Sexual Orientation Not on file Last Filed Vital Signs Vital Sign Reading Time Taken Comments Blood Pressure 148/79 10/05/2022 10:03 AM CDT Pulse 89 10/05/2022 10:03 AM CDT Temperature - - Respiratory Rate - - Oxygen Saturation - - Inhaled Oxygen Concentration - - Weight 92.4 kg (203 lb 9.6 oz) 10/05/2022 10:03 AM CDT Height 154.9 cm (5' 1) 10/05/2022 10:03 AM CDT Body Mass Index 38.47 10/05/2022 10:03 AM CDT Plan of Treatment Health Maintenance Due Date Last Done Comments BONE DENSITY TESTING 1950 COLOGUARD (AGES 45-75) - COLON CA SCREENING 1950 COLON MONITORING 1950 COLONOSCOPY - COLON CA SCREENING 1950 CT COLONOGRAPHY - COLON CA SCREENING 1950 Colorectal Cancer Screening 1950 FIT - COLON CA SCREENING 1950 FLEX SIG - COLON CA SCREENING 1950 MAMMOGRAM 1950 HEPATITIS C SCREENING 10/26/1969 DTAP/TDAP/TD VACCINES (1 - Tdap) 10/30/1970 Respiratory Syncytial Virus (RSV) Vaccine Pt: or over 60 yrs (1 - Risk 60-74 years 1-dose series) 2011 PNEUMOCOCCAL VACCINE 50+ (3 of 3 - PCV) 04/22/2018 04/22/2017, 04/22/2017, 07/01/2012 COVID-19 VACCINE ( season) 2024 04/11/2022, 05/11/2021, 09/28/2020, Additional history exists DEPRESSION SCREENING 07/23/2024 MEDICARE AWV CALENDAR YEAR 2024 INFLUENZA VACCINE (Season Ended) 2025 04/11/2022, 05/11/2021, 05/11/2020, Additional history exists SCREENING FOR DIABETES 07/22/2025 , 07/22/2022, 07/21/2022, Additional history exists ZOSTER VACCINE Completed 04/10/2019, 12/31/2018 HEPATITIS B VACCINE Aged Out No longe r eligible based on patient's age to complete this topic HIB VACCINE Aged Out No longer eligi ble based on patient's age to complete this topic HPV VACCINE Aged Out No longer eligi ble based on patient's age to complete this topic MENINGOCOCCAL (Group B) VACCINE SHARED DECISION-MAKING Aged Out No longer eligible based on patient's age to complete this topic MENINGOCOCCAL GROUPS A/C/Y/W VACCINE Aged Out No longer eligible based on patient's age to complete this topic Insurance [employer] AENA MEDICARE ADV Care Teams Obstetrics Technician Relationship Specialty Start Date End Date Devin Saldana MD [address] [facility] [id number] PCP - General 11/02/09
--- OUTSIDE RECORDS SUMMARY | 2025-01-22 08:11 | XMS_ITS | Encounter Summary ---
Author Organization [facility] Address [address] [place] [address] Care Team Providers Care Regulatory Affairs Spec Name Role Phone Devin Saldana MD Primary Care Provider [phone] Encounter Details Date Type Department Care Team (Late st Contact Info) Description 04/08/2024 Lab Requisition [facility] - DermPath Lab [address] [place] [id number] Jeanie Anthony MD [address] [facility] [address] [place] [address] Social History Tobacco Use Types Packs/Day Years Used Date Smoking Tobacco: Never Smokeless Tobacco: Never Alcohol Use Standard Drinks/Week Comments Not Currently 1 (1 standard drink = 0.6 oz pur e alcohol) Comments Unknown Sex and Gender Information Value Date Recorded Sex Assigned at Not on file 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 Gender Identity Not on file Sexual Orientation Not on file documented as of this encounter Plan of Treatment Not on file documented as of this encounter Procedures Procedure Name Priority Date/Time Associated Diagnosis Comments DERMATOPATHOLOGY Routine 04/08/2024 10:0 0 AM CDT documented in this encounter Results * DERMATOPATHOLOGY (04/08/2024 10:00 AM CDT) Case Report Dermatopathology Report Case: [id number] Authorizing Provider: Jeanie Anthony MD Collected: 04/08/2024 10:00 AM Ordering Location: [facility] - Received: 04/08/2024 03:39 PM DermPath Lab Pathologist: Kal Galvan MD Specimen: Skin, left upper back 4 2:04 PM CDT DERMATOPATHOLOGY LABORATORY Final Diagnosis Specimen A. 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 The specimen consists of a shave biopsy measuring 5x4x1 mm. Jar 0. 4 2:04 PM CDT DERMATOPATHOLOGY LABORATORY Microscopic Description Specimen A. SKIN, left upper back: The epidermis shows parakeratosis, full thickness disorderly maturation of keratinocytes, mitoses at different levels, and dyskeratotic cells. 4 2:04 PM CDT DERMATOPATHOLOGY LABORATORY Disclaimer An external and internal positive and negative controls are appropriate for the histochemical, immunohistochemical and immunofluorescence stain(s) in this case (if any), except where stated explicitly. The performance characteristics of the stain(s) cited in this report were developed and its performance characteristic determined by the Dermatopathology Laboratory at [facility], directed by Dr. Radha Galvan. These tests need not be, and therefore are not, approved by the [place] Food and Drug Administration. The tests are used for clinical purposes. Billing Codes Specimen Charges Stain Charges 09125 1 4 2:04 PM CDT DERMATOPATHOLOGY LABORATORY Embedded Images 4 2:04 PM CDT DERMATOPATHOLOGY LABORATORY Pathology/Cytolo gy TISSUE SPECIMEN FROM SKIN / Unknown 04/08/2024 10:00 AM CDT 04/08/2024 3:39 PM CDT us Jeanie Anthony MD LAB - PATHOLOGY/CYTOLOGY OR DERABLES Final Result DERMATOPATHOLOGY LABORATORY [facility] - Department of Dermatology [facility] [address] [place] [address], [address] [phone] documented in this encounter Visit Diagnoses Not on filedocumented in this encounter Care Teams Regulatory Affairs Spec Relationship Specialty Start Date End Date Devin Saldana MD [address] [place] [address] PCP - General 11/02/09 documented as of this encounter
--- OUTSIDE RECORDS SUMMARY | 2025-01-22 08:11 | XMS_ITS | Encounter Summary ---
Author Organization [facility] Address [address] [place] [address] Care Team Providers Care Transportation Aide Name Role Phone Devin Saldana MD Primary Care Provider [phone] Encounter Details Date Type Department Care Team (Late st Contact Info) Description 03/19/2019 Lab Requisition [facility] DermPath Lab [address] [facility] [place] [address] Jeanie Anthony MD [address] 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 Gender Identity Not on file Sexual Orientation Not on file documented as of this encounter Plan of Treatment Not on file documented as of this encounter Procedures Procedure Name Priority Date/Time Associated Diagnosis Comments DERMATOPATH TECHNICAL REPORT Routine 03/18/2019 12:00 AM CDT documented in this encounter Results * DERMATOPATH TECHNICAL REPORT (03/18/2019 12:00 AM CDT) Case Report Dermatopathology Report Case: [id number] Authorizing Provider: Jeanie Anthony MD Collected: 03/18/2019 12:00 AM Ordering Location: [facility] DermPath Lab Received: 03/19/2019 07:45 AM Pathologist: Kal Galvan MD Specimen: Skin, left corner of mouth 2:39 PM CDT DERMATOPATHOLOGY LABORATORY Addendum 1 At the request of the diagnosing physician, the technical component for Gram test and HSV was performed by [facility] Dermatopathology Laboratory. 2:39 PM CDT DERMATOPATHOLOGY LABORATORY Addendum electronically signed by Kal Galvan MD on 03/22/2019 at 1439 CDT Clinical History Folliculitis vs BCC vs other. Irrit. 2:39 PM CDT DERMATOPATHOLOGY LABORATORY Gross Description Specimen A: Received is one formalin filled container labeled with the patient's name and designated left corner of mouth. The specimen consists of a punch measuring [id number]. Jar 0. [facility] Dermatopathology Laboratory performed the technical component only. 2:39 PM CDT DERMATOPATHOLOGY LABORATORY Embedded Images 2:39 PM CDT DERMATOPATHOLOGY LABORATORY DISCLAIMER An external and internal positive and negative controls are appropriate for the histochemical, immunohistochemical and immunofluorescence stain(s) in this case (if any), except where stated explicitly. The performance characteristics of the stain(s) cited in this report were developed and its performance characteristic determined by the Dermatopathology Laboratory at [facility], directed by Dr. Radha Galvan. These tests need not be, and therefore are not, approved by the [place] Food and Drug Administration. The tests are used for clinical purposes. 2:39 PM CDT DERMATOPATHOLOGY LABORATORY at 1329 CDT Pathology/Cytolog y TISSUE SPECIMEN FROM SKIN / Unknown 03/18/2019 03/19/2019 7:45 AM CDT Jeanie Anthony MD LAB - PATHOLOGY/CYTOLOGY OR DERABLES Edited Result - Final DERMATOPATHOLOGY LABORATORY [facility] - Department of Dermatology [address] [place] [address], [address] [place] [address], [facility] [phone] documented in this encounter Visit Diagnoses Not on filedocumented in this encounter Care Teams Transportation Aide Relationship Specialty Start Date End Date Devin Saldana MD [address] [place] [phone] PCP - General 11/02/09 documented as of this encounter
--- OUTSIDE RECORDS SUMMARY | 2025-01-22 08:11 | XMS_ITS | Clinical Summary ---
Author Organization [facility] Address [facility] [place] [address] Care Team Providers Care Coordinate Measuring Machine Operator Name Role Phone Devin Saldana MD Primary Care Provider [phone] Freddy Ugalde MD Unavailable Unavailable Allergies Active Allergy Reactions Criticality Noted Date Comments Dheeraj Inhibitors Rash,Unknown Medium 09/04/2012 Cephalexin Contact Dermatitis,Hives,Itching,Rash,Swelling ,Unknown High 09/04/2012 Ciprofloxacin Angioedema,Unknown High 09/04/2012 Codeine Itching 05/12/2021 Levofloxacin Angioedema 05/12/2021 Metronidazole Rash,Unknown Medium 01/29/2018 Tramadol Itching 05/12/2021 Medications albuterol sulfate HFA 108 (90 Base) MCG/ACT inhaler Inhale 2 puffs into the lungs every 4 (four) hours as needed for Shortness of breath or Wheezing. 1 Active aspirin EC 81 MG tablet Take 81 mg by mouth daily. Active azaTHIOprine 50 MG tablet TAKE 2 TABLETS BY MOUTH ONCE DAILY IN THE MORNING AND 1 IN THE EVENING 1 Active diazePAM 5 MG tablet Take 5 mg by mouth nightly as needed for Sleep or Muscle Spasms. 1 Active fluticasone propionate 50 MCG/ACT nasal spray 2 sprays by Each Nostril route daily as needed for Allergies or Rhinitis. Active fluticasone-constantin meterol 250-50 MCG/DOSE inhaler Inhale 1 puff into the lungs 2 (two) times daily. Active hydroCHLOROthia zide 12.5 MG capsule Take 12.5 mg by mouth daily. 1 Active LORazepam 1 MG tablet Take 1 mg by mouth nightly as needed for Anxiety or Other (sleep). 1 Active metFORMIN 500 MG tablet Take 1,000 mg by mouth 2 (two) times daily. Active pantoprazole EC 40 MG tablet Take 40 mg by mouth 2 (two) times a day. 1 Active sertraline 100 MG tablet Take 100 mg by mouth daily. 1 Active Telmisartan 80 MG Tab Take 80 mg by mouth daily. 1 Active zolpidem 10 MG tablet Take 10 mg by mouth nightly as needed. 1 Active cycloSPORINE 0.05 % ophthalmic emulsion 1 drop 2 (two) times daily. Active predniSONE 2.5 mg tablet Take 5 mg by mouth daily. Active verapamil ER 180 MG 24 hr capsule Take 180 mg by mouth nightly at bedtime. Active loratadine 10 MG tablet Take 10 mg by mouth as needed. Active Vitamin D3, cholecalciferol , 2000 UNIT Tab tablet Take 1 capsule by mouth daily. Active multi vitamin/mineral s tablet Take 1 tablet by mouth daily. Active bumetanide 1 MG tablet Take 1 mg by mouth as needed. Active celecoxib 200 MG capsule Take 200 mg by mouth as needed. Active Apremilast (OTEZLA) 30 MG Tab Take by mouth 2 (two) times daily. Active atorvastatin 10 MG tablet Take 10 mg by mouth nightly at bedtime. Active potassium chloride CR 20 MEQ tablet Take 20 mEq by mouth 3 (three) times daily. 1 Active nystatin 968521 UNIT/ML suspension Take 200,000 Units by mouth 2 (two) times daily as needed. 1 Active Vitamin D, Ergocalciferol, 65053 units Cap Take 1 tablet by mouth weekly. Sundays Active sucralfate 1 G tablet Take 1 tablet (1 g total) by mouth 4 (four) times daily before meals and nightly. 120 tablet 3 2 Active pantoprazole EC 40 MG tablet Take 1 tablet (40 mg total) by mouth 2 (two) times a day. 30 tablet 3 2 Active ENBREL SURECLICK 50 MG/ML Solution Auto-injector injection Inject 1 mL (50 mg total) into the skin once a week. 4 Active JANUMET XR 100-1000 MG TABLET SR 24 HR 24 hr tablet Take 1 tablet by mouth daily. Active Na sulfate-K sulfate-Mg sulfate (SUPREP BOWEL PREP KIT) 17.5-3.13-1.6 GM/177ML SolutionIndicat ions:Hx of adenomatous colonic polyps,Screenin g for colon cancer Take 177 mLs by mouth every 12 (twelve) hours. Per GI instructions 354 mL 5 Active tirzepatide (MOUNJARO) 2.5 MG/0.5ML injectionIndica tions:Diabetes Mellitus Inject 2.5 mg into the skin every 7 days. Indications: Diabetes Active Active Problems Problem Noted Date Diagnosed Date Pharyngoesophageal dysphagia 12/10/2024 Gastroesophageal reflux dise ase, unspecified whether esophagitis present 12/10/2024 Hiatal hernia 12/10/2024 Hx of adenomatous colonic polyps 12/10/2024 History of pyloric stenosis 12/10/2024 Resolved Problems Problem Noted Date Diagnosed Date Resolved Date Screening for colon cancer 12/10/2024 0 12/15/2024 Encounters Date Type Department Care Team Description 12/10/2024 11:20 AM CDT [facility] [address], [address] [place] [phone] Lola Arriola NP New Patient (Referral dysphagia ) 12/10/2024 [facility] - [address], [address] [place] [phone] Artur Veronica MD 12/10/2024 Travel from Last 3 Months Family History Medical History Relation Comments Cancer Brother Other cancer Daughter 1 Cancer Father Rheumatoid Arthritis Father Diabetes Mother Heart Disease Mother Cancer Sister Relation Status Comments Brother Alive Daughter 1 Alive Daughter 2 Alive Father Alive Mother Sister Alive Son Alive Social History Tobacco Use Types Packs/Day Years Used Date Smoking Tobacco: Never Smokeless Tobacco: Never Tobacco Cessation:Counseling Given: No Alcohol Use Standard Drinks/Week Comments Yes 0 (1 standard drink = 0.6 oz pur e alcohol) socially PHQ-2 Answer Date Recorded Patient Health Questionnaire-2 Score 0 12/10/2024 Comments No Sex and Gender Information Value Date Recorded Sex Assigned at Female 10/08/2024 9:38 AM CDT Legal Sex Female 3:[address] Gender Identity Female 12/10/2024 10:56 AM CDT Sexual Orientation Not on file Last Filed Vital Signs Vital Sign Reading Time Taken Comments Blood Pressure 110/66 12/10/2024 11:00 AM CDT Pulse 94 12/10/2024 11:00 AM CDT Temperature 36.7 C (98 F) 12/10/2024 11:00 AM CDT Respiratory Rate 18 12/10/2024 11:00 AM CDT Oxygen Saturation 97% 12/10/2024 11:00 AM CDT Inhaled Oxygen Concentration - - Weight 88.5 kg (195 lb) 12/10/2024 11:00 AM CDT Height 154.9 cm (5' 1) 12/10/2024 11:00 AM CDT Body Mass Index 36.84 12/10/2024 11:00 AM CDT Plan of Treatment Upcoming Encounters Date Type Department Care Team (Latest Contact Info) Description 08/13/2025 9:00 AM [facility] Hospital Encounter [facility] [place] [address] Artur Veronica MD [address] [id number] 08/13/2025 9:[address] - 08/13/2025 9:30 AM [facility] Surgery [facility] [place] [address] Artur Veronica MD [address] [address] COLONOSCOPY SCREENING Scheduled Procedures Name Priority Associated Diagnoses Date/Ti me COLONOSCOPY SCREENING Pharyngoesophageal dysphagia Gastroesophageal reflux disease, unspecified whether esophagitis present Hiatal hernia Hx of adenomatous colonic polyps Screening for colon cancer History of pyloric stenosis 08/13/2025 9:[address] EGD Pharyngoesophageal dysphagia Gastroesophageal reflux disease, unspecified whether esophagitis present Hiatal hernia Hx of adenomatous colonic polyps Screening for colon cancer History of pyloric stenosis 08/13/2025 9:[address] Health Maintenance Due Date Last Done Comments Colorectal Cancer Screening Colonoscopy (10 Years) 1950 Kidney Health Evaluation 1950 Lipid Panel 1950 Diabetes: Retinopathy Eye Exam 10/30/1969 Hepatitis C 10/30/1969 DTaP, Tdap and Td Vaccines ( 1 - Tdap) 10/30/1970 Mammogram Screening 1991 RSV Immunization or 60+ Years (1 - Risk 60-74 years 1-dose series) 2011 Annual Medicare Wellness Visit 10/30/2016 Pneumococcal Vaccine: 50+ Years (3 of 3 - PCV) 04/22/2018 04/22/2017, 07/01/2012 Hemoglobin A1C 01/09/2023 07/11/2022 COVID-19 Vaccine (4 - 2023-2 5 season) 2024 05/11/2021, 09/28/2020, 08/31/2020 Zoster Vaccines Completed 04/10/2019, 12/31/2018 Dexa Scan (General) Completed 06/12/2024 PHQ-2 (Physician [place]) Completed 12/10/2024 Meningococcal B Vaccine Aged Out No l onger eligible based on patient's age to complete this topic Meningococcal Vaccine Aged Out No denise mukesh eligible based on patient's age to complete this topic RSV Immunizations Under 20 Months Aged Out No longer eligible b ased on patient's age to complete this topic Goals Goal Patient Goal Type Associated Problems Recent Progress Patient-Stated? Author Safety - demonstrates understanding of home safety measures General No Nani Ohara RN Autogenerated Goal Care Plan Autogenerated Problem No Aiyana Waters [employer] Devices Implanted Type Area Engineering Program Manager Device Identifier Shelf Expiration Date Model / Serial / Lot Resolution 360 Ultra Clip 235cm/2.8mm Implanted:Qty: 4 on 01/02/2022 by Robin Ray DO at [facility] [employer] Clip Implant [employer] [id number] 07/01/2024 [id number] / / [id number] Clip Resolution 2.8mm 360 235cm 11mm Open - [id number] Implanted:Qty: 1 on 01/02/2022 by Robin Ray DO at [facility] [employer] Clip Implant [employer] [id number] 08/14/2024 [id number] / / [id number] Clip Resolution 2.8mm 360 235cm 11mm Open - [id number] Implanted:Qty: 1 on 01/02/2022 by Robin Ray DO at [facility] [employer] Clip Implant [employer] [id number] 07/11/2024 [id number] / / [id number] Additional Health Concerns Active Problems Noted Date Diagnosed Date Autogenerated Problem 12/10/2024 Insurance AETNA AETNA Care Teams Coordinate Measuring Machine Operator Relationship Specialty Start Date End Date Devin Saldana MD [address] [place] [address] PCP - General INTERNAL MEDICINE 05/25/20 Freddy Ugalde MD [address] [place] [address] INTERNAL MEDICINE 12/22/21
--- OUTSIDE RECORDS SUMMARY | 2025-01-22 08:11 | XMS_ITS | Referral Summary ---
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 Name Role Phone Devin Saldana MD Primary Care Provider [phone] Bia Bryant MACHINE III COREMAKER Unavailable [phone] Encounters Date Type Department Care Team Description 01/14/2025 8:45 AM CDT Infusion [facility] at [address] [phone] Selective deficiency of IgG (HCC) (Primary Dx) 01/14/2025 8:15 AM CDT Lab [facility] at [address] [address] Selective deficiency of IgG (HCC) 12/17/2024 Orders Only [facility] Hematology [facility] [address] [phone] Mahogany Suarez Selective deficiency of IgG (HCC) (Primary Dx) 12/17/2024 11:00 AM CDT Lab [facility] at [address] [phone] Selective deficiency of IgG (HCC) 12/17/2024 11:30 AM CDT Infusion [facility] at [address] [place] [phone] Selective deficiency of IgG (HCC) (Primary Dx) 11/19/2024 Orders Only [facility] Hematology [address] [facility] [address] [place] [address] Mahogany Suarez 11/19/2024 12:00 PM CDT Infusion [facility] at [address] [phone] Selective deficiency of IgG (HCC) (Primary Dx) from Last 3 Months Allergies Active Allergy Reactions Criticality Noted Date Comments Dheeraj Inhibitors Unknown,Rash Medium 09/04/2012 Cephalexin Unknown,Rash,Blister s,Hives,Itching,Sw elling High 09/04/2012 Ciprofloxacin Unknown,Angioedema High 09/04/2012 Codeine Itching,Rash Medium 05/12/2021 Metronidazole Unknown,Angioedema,Rash High 8 Tramadol Itching Low 05/12/2021 Medications bumetanide (BUMEX) 1 mg tablet Take 1 tablet (1 mg total) by mouth as needed 8 Active levalbuterol (XOPENEX) 1.25 mg/3 mL nebulizer solution Take 3 mL (1.25 mg total) by nebulization every 4 (four) hours as needed [address] (PROTONIX) 40 mg EC tablet Take 1 tablet (40 mg total) by mouth 2 (two) times a day 8 Active sertraline (ZOLOFT) 100 mg tablet Take 1 tablet (100 mg total) by mouth daily 8 Active verapamil ER (VERELAN) 180 mg 24 hr capsule 160 mg nightly 8 Active fluticasone (FLONASE) 50 mcg/actuation nasal spray Administer 1 spray into each nostril daily Active zolpidem (AMBIEN) 10 mg tablet Take 1 tablet (10 mg total) by mouth nightly as needed 1 9 Active celecoxib (CeleBREX) 200 mg capsule TAKE 1 CAPSULE BY MOUTH TWICE DAILY NEEDED 0 Active loratadine (CLARITIN) 10 mg tablet Take 1 tablet (10 mg total) by mouth daily as needed 0 Active Otezla 30 mg tablet Take 1 tablet (30 mg total) by mouth daily 0 Active potassium chloride ER 20 mEq CR tablet Take 1 tablet (20 mEq total) by mouth 2 (two) times a day 0 Active triamcinolone (KENALOG) 0.1 % ointment 0 Active albuterol HFA (PROVENTIL HFA,VENTOLIN HFA,PROAIR HFA) 90 mcg/actuation inhaler INHALE 1 PUFF BY MOUTH EVERY 4 HOURS FOR BREATHING DIFFICULTY 1 Active azaTHIOprine (IMURAN) 50 mg tablet TAKE 2 TABLETS BY MOUTH ONCE DAILY IN THE MORNING AND 1 IN THE EVENING 1 Active hydroCHLOROthia zide (MICROZIDE) 12.5 mg capsule Take 1 capsule (12.5 mg total) by mouth daily 1 Active telmisartan (MICARDIS) 80 mg tablet Take 1 tablet (80 mg total) by mouth daily 1 Active cholecalciferol , vitamin D3, (VITAMIN D3 ORAL) Take 2,000 Units by mouth daily Active aspirin 81 mg enteric coated tablet Take 1 tablet (81 mg total) by mouth daily Active cycloSPORINE (RESTASIS) 0.05 % ophthalmic emulsion Administer 1 drop into affected eye(s) 2 (two) times a day Active diazePAM (VALIUM) 5 mg tablet Take 1 tablet (5 mg total) by mouth nightly as needed at bedtime. 2 Active multivitamin with minerals (Multiple Vitamin-Mineral s) tablet Take 1 tablet by mouth daily Active cholecalciferol (VITAMIN D-3) 50,000 unit capsule Take 1 capsule (50,000 Units total) by mouth every 14 (fourteen) days Active SITagliptin phos-metformin (JANUMET) 50-1,000 mg per tablet Take 1 tablet by mouth daily Pt states her med contains 1000 mg Metformin and 10 mg Januvia Active anastrozole (ARIMIDEX) 1 mg tablet Take 10 tablets (10 mg total) by mouth daily Active immune globulin (FLEBOGAMMA) infusion Infuse into a venous catheter every 30 (thirty) days Active oxyCODONE-aceta minophen (PERCOCET) 5-325 mg per tabletIndicatio ns:Pain Take 1 tablet by mouth every 4 (four) hours as needed for pain 30 tablet 3 Active Additional Information Patient not taking.Reported on 06/25/2024 docusate sodium (COLACE) 100 mg capsuleIndicati ons:constipatio n Take 1 capsule (100 mg total) by mouth 2 (two) times a day 30 capsule 3 Active rosuvastatin (CRESTOR) 10 mg tablet Take 1 tablet (10 mg total) by mouth daily [address] (VOLTAREN) 75 mg EC tablet Take 1 tablet (75 mg total) by mouth 2 (two) times a day 4 Active EnbreL SureClick 50 mg/mL (1 mL) pen injector 4 Active fluticasone propion-salmete roL (ADVAIR DISKUS) 250-50 mcg/dose diskus inhaler INHALE 1 DOSE BY MOUTH TWICE DAILY . RINSE MOUTH AND SPIT AFTER EACH USE. 4 Active modafiniL (PROVIGIL) 100 mg tablet Take 1 tablet (100 mg total) by mouth 2 (two) times a day Active Opzelura 1.5 % cream 4 Active predniSONE (DELTASONE) 10 mg tablet TAKE 1 TO 3 TABLETS BY MOUTH ONCE DAILY NEEDED FOR IMMEDIATE ARTHRITIS RELIEF 4 Active LORazepam (ATIVAN) 2 mg tablet TAKE 1/2 (ONE-HALF) TABLET BY MOUTH 2 TO 3 TIMES DAILY NEEDED FOR ANXIETY 4 Active Janumet XR 100-1,000 mg tablet, ER multiphase 24 hr 4 Active Active Problems Problem Noted Date Diagnosed Date Selective deficiency of IgG 12/03/2017 Immunizations Immunization Administration Dates Next Due Influenza, Quadrivalent, Hig h Dose, Preservative Free, Intrr 05/11/2021,05/11/2020 Influenza, Unspecified 05/11/2020,2018,05/01/2019,04/22,04/22/2017 Moderna SARS-CoV-2 Monovalen t Vaccination (12+ YRS) 09/28/2020,08/31/2020,08/24/2020 Pneumococcal Polysaccharide PPV23 04/22/2017 Pneumococcal, Unspecified 04/22/2017 ZOSTER Recombinant 04/10/2019,12/31/2018 Social History Tobacco Use Types Packs/Day Years Used Date Smoking Tobacco: Never Smokeless Tobacco: Never Alcohol Use Standard Drinks/Week Comments Yes 0 (1 standard drink = 0.6 oz pur e alcohol) ocassionally AUDIT-C Answer Date Recorded Q1: How often do you have a drink containing alc ohol? 2-4 times a month 02/22/2023 Q2: How many drinks containi ng alcohol do you have on a typical day when you are drinking? 1 or 2 02/22/2023 Q3: How often do you have si x or more drinks on one occasion? Never 02/22/2023 Personal Safety Answer Date Recorded Have you ever been in or are you currently in a harmful physical or emotional relationship or is someone making you feel afraid or unsafe? 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 LEAD Gender Identity Not on file Sexual Orientation Not on file Last Filed Vital Signs Vital Sign Reading Time Taken Comments Blood Pressure 115/59 01/14/2025 11:29 AM CDT Pulse 96 01/14/2025 11:29 AM CDT Temperature 37.1 C (98.7 F) 01/14/2025 11:29 AM CDT Respiratory Rate 16 01/14/2025 11:29 AM CDT Oxygen Saturation 98% 01/14/2025 11:29 AM CDT Inhaled Oxygen Concentration - - Weight 88 kg (194 lb) 01/14/2025 8:37 AM CDT w/o shoes Height 154.9 cm (5' 1) 01/02/2024 10:13 AM CDT Body Mass Index 36.66 01/02/2024 10:13 AM CDT Plan of Treatment Not on file Medical Devices Implanted Type Area Booth Cleaner Device Identifier Shelf Expiration Date Model / Serial / Lot [employer]/C R Bard Ventralight St Sepra Echo Ps 8x6in Monofilament Absorbable Low Latex Free [id number] - [id number] Implanted:Qty: 1 on 02/22/2023 by Robin Ray, at [facility] Mesh N/A: Abdomen [employer] Bard [id number] 06/19/2023 [id number] / / [id number] Procedures Procedure Name Priority Date/Time Associated Diagnosis Comments MANUAL DIFFERENTIAL Routine 01/14/2025 8 :22 AM CDT Selective deficiency of IgG (HCC) RETICULOCYTES Routine 01/14/2025 8:22 AM CDT Selective deficiency of IgG (HCC) IGG Routine 01/14/2025 8:22 AM CDT Selective deficiency of IgG (HCC) CBC WITH AUTO DIFFERENTIAL Routine 01/14/2025 8:22 AM CDT Selective deficiency of IgG (HCC) DIFFERENTIAL AUTO Routine 12/17/2024 11: 07 AM CDT Selective deficiency of IgG (HCC) RETICULOCYTES Routine 12/17/2024 11:07 AM CDT Selective deficiency of IgG (HCC) IGG Routine 12/17/2024 11:07 AM CDT Selective deficiency of IgG (HCC) CBC WITH AUTO DIFFERENTIAL Routine 12/17/2024 11:07 AM CDT Selective deficiency of IgG (HCC) from Last 3 Months Results * (ABNORMAL) CBC with auto differential (01/14/2025 8:22 AM CDT) WBC 9.45 3.80 - 9.90 K/cumm Comment:Testing performed by : [address] [address] Hgb 12.3 11.9 - 15.5 g/dL [facility] Comment:Testing performed by : [address] [address] Hct 36.1 35.6 - 45.5 % [facility] Comment:Testing performed by : [address] [address] Plt 236 150 - 400 K/cumm [facility] Comment:Testing performed by : [address] [address] MPV 9.7 9.1 - 12.3 fL [facility] Comment:Testing performed by : [address] [address] RBC 3.84(L) 3.90 - 5.20 M/cumm [facility] Comment:Testing performed by : [address] [address] MCV 94.0 81.3 - 96.4 fL [facility] Comment:Testing performed by : [address] [address] MCH 32.0 27.1 - 33.3 pg [facility] Comment:Testing performed by : [address] [address] MCHC 34.1 32.3 - 35.7 g/dL [facility] Comment:Testing performed by : [address], [address] RDW CV 13.2 11.1 - 14.9 % [facility] Comment:Testing performed by : [address] [address] RDW SD 45.1 35.7 - 48.1 fL [facility] Comment:Testing performed by : [address] [address] NRBC abs 0.00 0.00 - 0.01 K/cumm [facility] Comment:Testing performed by : [address] [address] ANC Prelim 6.34 1.50 - 6.50 K/cumm [facility] Comment: Interpretive Data The rapid ANC is a preliminary automated count and may vary from the final ANC (Neut Abs) reported in the WBC differential that follows. Current interpretive data was last revised 2024. Testing performed by: [address] [address] Blood 01/14/2025 8:22 AM CDT 01/14/2025 8:24 AM CDT us Bia Bryant NP LAB BLOOD ORDERABLES Final Result [facility] [address] [facility] [place] [address] * (ABNORMAL) Manual Differential (01/14/2025 8:22 AM CDT) Differential Manual Comment:Testing performed by : [address] [address] Cells Counted 100 [facility] Comment:Testing performed by : [address] [address] Neutrophil abs 6.90(H) 1.50 - 6.50 K/cumm [facility] Comment:Testing performed by : [address] [address] Lymphocyte abs 2.17 0.80 - 3.30 K/cumm [facility] Comment:Testing performed by : [address] [address] Monocyte abs 0.38 0.20 - 0.80 K/cumm [facility] Comment:Testing performed by : [address] [address] Neutrophil pct 73.0 % [facility] Comment: Interpretive Data Percent cell count reference ranges are not reported, since discordance with absolute values may lead to misinterpretation of CBC data. Current Interpretive Data was last revised on 2017. Testing performed by: [address] [address] Lymphocyte pct 23.0 % [facility] Comment: Interpretive Data Percent cell count reference ranges are not reported, since discordance with absolute values may lead to misinterpretation of CBC data. Current Interpretive Data was last revised on 2017. Testing performed by: [address] [address] Monocyte pct 4.0 % [facility] Comment: Interpretive Data Percent cell count reference ranges are not reported, since discordance with absolute values may lead to misinterpretation of CBC data. Current Interpretive Data was last revised on 2017. Testing performed by: [address] [address] Blood 01/14/2025 8:22 AM CDT 01/14/2025 8:24 AM CDT Bia Cindy Golec MACHINE III COREMAKER LAB BLOOD ORDERABLES Final Result Performing Organization Address [facility]/ZIP Co de Phone Number [address] [place] [place] [address] * Reticulocyte Count (01/14/2025 8:22 AM CDT) [facility] Retics, absolute 79 20 - 87 K/cumm Comment:Testing performed by : [address] [address] Retics 2.1 0.4 - 2.9 % [facility] Comment:Testing performed by : [address] [address] Reticulocyte Hgb 36.0 30.5 - 38.0 pg [facility] Comment:Testing performed by : [address] [address] Blood 01/14/2025 8:22 AM CDT 01/14/2025 8:24 AM CDT Bia Bryant MACHINE III COREMAKER LAB BLOOD ORDERABLES Final Result Performing Organization Address [facility] Co de Phone Number [address] [place] [address] * IgG (01/14/2025 8:22 AM CDT) [facility] Immunoglobulin G 789 700 - 1,600 mg/dL Blood 01/14/2025 8:22 AM CDT 01/14/2025 2:26 PM CDT Bia Bryant MACHINE III COREMAKER LAB BLOOD ORDERABLES Final Result Performing Organization Address [facility] Co de Phone Number [address] [place] [place] [address] * (ABNORMAL) Differential, auto (12/17/2024 11:07 AM CDT) [facility] Neutrophil abs 4.61 1.50 - 6.50 K/cumm Comment:Testing performed by : [address] [address] Imm gran abs 0.58(H) 0.00 - 0.10 K/cumm [facility] Comment:Testing performed by : [address] [address] Lymphocyte abs 1.88 0.80 - 3.30 K/cumm [facility] Comment:Testing performed by : [address] [address] Monocyte abs 0.55 0.20 - 0.80 K/cumm [facility] Comment:Testing performed by : [address], [place]., [address] Eosinophil abs 0.04 0.00 - 0.50 K/cumm [facility] Comment:Testing performed by : [address] [address] Basophil abs 0.01 0.00 - 0.10 K/cumm [facility] Comment:Testing performed by : [address] [address] Neutrophil pct 60.1 % [facility] Comment: Interpretive Data Percent cell count reference ranges are not reported, since discordance with absolute values may lead to misinterpretation of CBC data. Current Interpretive Data was last revised on 2017. Testing performed by: [address] [address] Imm gran pct 7.6 % [facility] Comment: Interpretive Data Percent cell count reference ranges are not reported, since discordance with absolute values may lead to misinterpretation of CBC data. Current Interpretive Data was last revised on 2017. Testing performed by: [address] [address] Lymphocyte pct 24.5 % [facility] Comment: Interpretive Data Percent cell count reference ranges are not reported, since discordance with absolute values may lead to misinterpretation of CBC data. Current Interpretive Data was last revised on 2017. Testing performed by: [address] [address] Monocyte pct 7.2 % [facility] Comment: Interpretive Data Percent cell count reference ranges are not reported, since discordance with absolute values may lead to misinterpretation of CBC data. Current Interpretive Data was last revised on 2017. Testing performed by: [address] [address] Eosinophil pct 0.5 % [facility] Comment: Interpretive Data Percent cell count reference ranges are not reported, since discordance with absolute values may lead to misinterpretation of CBC data. Current Interpretive Data was last revised on 2017. Testing performed by: [address] [address] Basophil pct 0.1 % [facility] Comment: Interpretive Data Percent cell count reference ranges are not reported, since discordance with absolute values may lead to misinterpretation of CBC data. Current Interpretive Data was last revised on 2017. Testing performed by: [address] [address] Blood 12/17/2024 11:0 7 AM CDT 12/17/2024 11:09 AM CDT Bia Bryant NP LAB BLOOD ORDERABLES Final Result [facility] [address] [facility] [place] [address] * CBC with auto differential (12/17/2024 11:07 AM CDT) WBC 7.67 3.80 - 9.90 K/cumm Comment:Testing performed by : [address] [address] Hgb 13.2 11.9 - 15.5 g/dL [facility] Comment:Testing performed by : [address] [address] Hct 37.3 35.6 - 45.5 % [facility] Comment:Testing performed by : [address] [address] Plt 271 150 - 400 K/cumm [facility] Comment:Testing performed by : [address] [address] MPV 10.0 9.1 - 12.3 fL [facility] Comment:Testing performed by : [address] [address] RBC 4.13 3.90 - 5.20 M/cumm [facility] Comment:Testing performed by : [address] [address] MCV 90.3 81.3 - 96.4 fL [facility] Comment:Testing performed by : [address] [address] MCH 32.0 27.1 - 33.3 pg [facility] Comment:Testing performed by : [address] [address] MCHC 35.4 32.3 - 35.7 g/dL [facility] Comment:Testing performed by : [address] [address] RDW CV 13.2 11.1 - 14.9 % [facility] Comment:Testing performed by : [address] [address] RDW SD 43.8 35.7 - 48.1 fL [facility] Comment:Testing performed by : [address] [address] NRBC abs 0.00 0.00 - 0.01 K/cumm [facility] Comment:Testing performed by : [address] [address] ANC Prelim 4.61 1.50 - 6.50 K/cumm [facility] Comment: Interpretive Data The rapid ANC is a preliminary automated count and may vary from the final ANC (Neut Abs) reported in the WBC differential that follows. Current interpretive data was last revised 2024. Testing performed by: [address] [address] Blood 12/17/2024 11:0 7 AM CDT 12/17/2024 11:09 AM CDT us Bia Bryant NP LAB BLOOD ORDERABLES Final Result [facility] [address] [facility] [place] [address] * Reticulocyte Count (12/17/2024 11:07 AM CDT) Pathologist [facility] Retics, absolute 77 20 - 87 K/cumm Comment:Testing performed by : [address] [address] Retics 1.9 0.4 - 2.9 % [facility] Comment:Testing performed by : [address] [address] Reticulocyte Hgb 36.7 30.5 - 38.0 pg [facility] Comment:Testing performed by : [address] [address] Blood 12/17/2024 11:0 7 AM CDT 12/17/2024 11:09 AM CDT Bia Bryant MACHINE III COREMAKER LAB BLOOD ORDERABLES Final Result Performing Organization Address [facility] Co de Phone Number [address] [employer] [place] [address] * IgG (12/17/2024 11:07 AM CDT) [facility] Immunoglobulin G 921 700 - 1,600 mg/dL Blood 12/17/2024 11:0 7 AM CDT 12/17/2024 2:29 PM CDT Bia Bryant MACHINE III COREMAKER LAB BLOOD ORDERABLES Final Result Performing Organization Address [facility] Co de Phone Number [address] [place] [place] [address] from Last 3 Months Insurance SPECIAL [employer] MEDICARE ADVANTAGE [employer] Care Teams Vehicle Leasing And Rental Manager Relationship Specialty Start Date End Date Devin Saldana MD [address] [facility] [address] [place] [address] PCP - General 11/14/17 Bia Bryant NP [address] [place] [address] [place] [address] Nurse Practitioner Nurse Practitioner 10/30/23
--- OUTSIDE RECORDS SUMMARY | 2025-01-22 08:11 | XMS_ITS | Clinical Summary ---
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 Encounters Date Type Department Care Team Description 01/14/2025 8:45 AM CDT Infusion [facility] at [address] [place] [address] Selective deficiency of IgG (HCC) (Primary Dx) 01/14/2025 8:15 AM CDT Lab [facility] at [address] [address] Selective deficiency of IgG (HCC) 12/17/2024 11:30 AM CDT Infusion [facility] at [address] [place] [address] Selective deficiency of IgG (HCC) (Primary Dx) 12/17/2024 11:00 AM CDT Lab [facility] at [address] [address] Selective deficiency of IgG (HCC) 12/17/2024 Orders Only [facility] Hematology [facility] ([place], [place]) [address] [place] [id number] Mahogany Suarez Selective deficiency of IgG (HCC) (Primary Dx) 11/19/2024 12:00 PM CDT Infusion [facility] at [address] [address] Selective deficiency of IgG (HCC) (Primary Dx) 11/19/2024 Orders Only [facility] Hematology [facility] ([place], [place]) [address] [place] [address] Mahognay Suarez from Last 3 Months Immunizations Immunization Administration Dates Next Due Influenza, Quadrivalent, Hig h Dose, Preservative Free, Intrr 05/11/2021,05/11/2020 Influenza, Unspecified 05/11/2020,2018,05/01/2019,04/22,04/22/2017 Moderna SARS-CoV-2 Monovalen t Vaccination (12+ YRS) 09/28/2020,08/31/2020,08/24/2020 Pneumococcal Polysaccharide PPV23 04/22/2017 Pneumococcal, Unspecified 04/22/2017 ZOSTER Recombinant 04/10/2019,12/31/2018 Surgical History Surgery Date Site/Laterality Comments COLONOSCOPY CHOLECYSTECTOMY APPENDECTOMY UPPER GASTROINTESTINAL ENDOSCOPY HYSTERECTOMY SINUS SURGERY x 2 FISTULA REPAIR Left neck TONSILLECTOMY PYLOROMYOTOMY 07/23/2021 - 07/22/2022 LAPAROSCOPIC COLON RESECTION Medical History Medical History Date Comments Hypogammaglobulinemia Diabetes mellitus (HCC) GERD (gastroesophageal reflux disease) Colon polyp Hyperlipidemia Hypertension Asthma COPD (chronic obstructive pu lmonary disease) (HCC) Chronic bronchitis (HCC) Arthritis Depression Immunoglobulin deficiency, acquired Breast cancer (HCC) PONV (postoperative nausea and vomiting) Sleep apnea uses cpap nightl y 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 Fibromyalgia Bronchiectasis (HCC) 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 Motion sickness Type 2 diabetes mellitus (HCC) Obesity Family History Medical History Relation Name Comments Lung cancer Brother Prostate cancer Father Leukemia Father's Sister Lymphoma Father's Sister Colon cancer Maternal Grandfather Diabetes Mother Heart disease Mother Heart failure Mother Leukemia Paternal Grandfather Heart disease Paternal Grandmother Lung cancer Sister Relation Name Status Comments Brother Alive Father Alive Father's Sister Alive Maternal Grandfather Mother Paternal Grandfather Paternal Grandmother Sister Social History Tobacco Use Types Packs/Day Years [...] on file Legal Sex Female 6:08 AM [employer] Gender Identity Not on file Sexual Orientation Not on file Obstetrics History Last Filed Vital Signs Vital Sign Reading [...] 01/02/2024 10:13 AM CDT Plan of Treatment Health Maintenance Due Date Last Done Comments Breast Cancer Screening-Mammogram 1950 Colon Cancer Screening-Colonoscopy 1950 Depression Screening 1950 Hepatitis C Screening 1950 DTaP/Tdap/Td Vaccine (1 - Tdap) 10/30/1962 Hepatitis B Screening 10/30/1969 Well Visit 65+ 10/30/2016 Pneumococcal vaccine 65+ (3 of 3 - PCV) 04/22/2018 04/22/2017, 04/22/2017, 07/01/2012 Fall Risk Assessment 02/23/2024 02/22/2023 Covid-19 Vaccine ( - 2023-2 5 season) 2024 05/11/2021, 09/28/2020, 08/31/2020, Additional history exists Influenza Vaccine (Season Ended) 2025 05/11/2021, 05/11/2020, 05/11/2020, Additional history exists Osteoporosis Screening-Bone Density Scan 06/12/2026 06/12/2024 Zoster Vaccine Completed 04/10/2019, 12/31/2018 Medical Devices Implanted Type Area Director Learning Device Identifier Shelf Expiration Date Model / Serial / Lot [employer]/C R Bard Ventralight St Sepra Echo Ps 8x6in Monofilament Absorbable Low Latex Free [id number] - [id number] Implanted:Qty: 1 on 02/22/2023 by Robin Ray DO at [facility] Mesh N/A: Abdomen [employer] [id number] 06/19/2023 [id number] / / [id number] Procedures Procedure Name Priority Date/Time Associated Diagnosis [...] - 9.90 K/cumm Comment:Testing performed by : [address] [address] Hgb 12.3 11.9 - 15.5 g/dL CHRIS Comment:Testing performed by : [address] [address] Hct 36.1 35.6 - 45.5 % CHRIS Comment:Testing performed by : [address] [address] Plt 236 150 - 400 K/cumm CHRIS Comment:Testing performed by : [address] [address] MPV 9.7 9.1 - 12.3 fL CHRIS Comment:Testing performed by : [address] [address] RBC 3.84(L) 3.90 - 5.20 M/cumm CHRIS Comment:Testing performed by : [address] [address] MCV 94.0 81.3 - 96.4 fL CHRIS Comment:Testing performed by : [address] [address] MCH 32.0 27.1 - 33.3 pg CHRIS ACUNA Comment:Testing performed by : [address] [address] MCHC 34.1 32.3 - 35.7 g/dL CHRIS Comment:Testing performed by : [address] [address] RDW CV 13.2 11.1 - 14.9 % CHRIS Comment:Testing performed by : [address] [address] RDW SD 45.1 35.7 - 48.1 fL CHRIS Comment:Testing performed by : [address] [address] NRBC abs 0.00 0.00 - 0.01 K/cumm CHRIS Comment:Testing performed by : [address] [address] ANC Prelim 6.34 1.50 - 6.50 K/cumm CHRIS Comment: Interpretive Data The rapid ANC is a preliminary automated count and may vary from the final ANC (Neut Abs) reported in the WBC differential that follows. Current interpretive data was last revised 2024. Testing performed by: [address] [address] Blood 01/14/2025 8:22 AM CDT 01/14/2025 8:24 AM CDT us Bia Bryant NP LAB BLOOD ORDERABLES Final Result [facility] [address] [facility] Department of Laboratories [place], [place] [id number] * (ABNORMAL) Manual Differential (01/14/2025 8:22 AM CDT) [facility] Signature Differential Manual Comment:Testing performed by : [address] [address] Cells Counted 100 CHRIS Comment:Testing performed by : [address] [address] Neutrophil abs 6.90(H) 1.50 - 6.50 K/cumm CHRIS Comment:Testing performed by : [address] [address] Lymphocyte abs 2.17 0.80 - 3.30 K/cumm CHRIS Comment:Testing performed by : [address] [address] Monocyte abs 0.38 0.20 - 0.80 K/cumm CHRIS Comment:Testing performed by : [address] [address] Neutrophil pct 73.0 % CHRIS Comment: Interpretive Data Percent cell count reference ranges are not reported, since discordance with absolute values may lead to misinterpretation of CBC data. Current Interpretive Data was last revised on 2017. Testing performed by: [address] [address] Lymphocyte pct 23.0 % CHRIS Comment: Interpretive Data Percent cell count reference ranges are not reported, since discordance with absolute values may lead to misinterpretation of CBC data. Current Interpretive Data was last revised on 2017. Testing performed by: [address] [address] Monocyte pct 4.0 % CHRIS Comment: Interpretive Data Percent cell count reference ranges are not reported, since discordance with absolute values may lead to misinterpretation of CBC data. Current Interpretive Data was last revised on 2017. Testing performed by: [address] [address] Blood 01/14/2025 8:22 AM CDT 01/14/2025 8:24 AM CDT Bia Bryant NP LAB BLOOD ORDERABLES Final Result CHRIS [address] [place] [address] * Reticulocyte Count (01/14/2025 8:22 AM CDT) [facility] Retics, absolute 79 20 - 87 K/cumm Comment:Testing performed by : [address] [address] Retics 2.1 0.4 - 2.9 % CHRIS Comment:Testing performed by : [address] [address] Reticulocyte Hgb 36.0 30.5 - 38.0 pg CHRIS Comment:Testing performed by : [address] [address] Blood 01/14/2025 8:22 AM CDT 01/14/2025 8:24 AM CDT Bia Bryant PHARMACISTS LAB BLOOD ORDERABLES Final Result Performing Organization Address [facility] Co de Phone Number [address] [address] * IgG (01/14/2025 8:22 AM CDT) [facility] Immunoglobulin G 789 700 - 1,600 mg/dL Blood 01/14/2025 8:22 AM CDT 01/14/2025 2:26 PM CDT Bia Bryant LAB BLOOD ORDERABLES Final Result Performing Organization Address [facility] de Phone Number [place] [address] [place] [address] * (ABNORMAL) Differential, auto (12/17/2024 11:07 AM CDT) [facility] Neutrophil abs 4.61 1.50 - 6.50 K/cumm Comment:Testing performed by : [address] [address] Imm gran abs 0.58(H) 0.00 - 0.10 K/cumm CHRIS Comment:Testing performed by : [address], [place]., [address] Lymphocyte abs 1.88 0.80 - 3.30 K/cumm CHRIS Comment:Testing performed by : [address], [place]., [address] Monocyte abs 0.55 0.20 - 0.80 K/cumm CHRIS Comment:Testing performed by : [address], [place]., [address] Eosinophil abs 0.04 0.00 - 0.50 K/cumm CHRIS Comment:Testing performed by : [address], [place]., [address] Basophil abs 0.01 0.00 - 0.10 K/cumm CHRIS Comment:Testing performed by : [address] [address] Neutrophil pct 60.1 % CHRIS Comment: Interpretive Data Percent cell count reference ranges are not reported, since discordance with absolute values may lead to misinterpretation of CBC data. Current Interpretive Data was last revised on 2017. Testing performed by: [address] [address] Imm gran pct 7.6 % CHRIS Comment: Interpretive Data Percent cell count reference ranges are not reported, since discordance with absolute values may lead to misinterpretation of CBC data. Current Interpretive Data was last revised on 2017. Testing performed by: [address] [address] Lymphocyte pct 24.5 % CHRIS Comment: Interpretive Data Percent cell count reference ranges are not reported, since discordance with absolute values may lead to misinterpretation of CBC data. Current Interpretive Data was last revised on 2017. Testing performed by: [address] [address] Monocyte pct 7.2 % CHRIS Comment: Interpretive Data Percent cell count reference ranges are not reported, since discordance with absolute values may lead to misinterpretation of CBC data. Current Interpretive Data was last revised on 2017. Testing performed by: [address] [address] Eosinophil pct 0.5 % CHRIS ACUNA Comment: Interpretive Data Percent cell count reference ranges are not reported, since discordance with absolute values may lead to misinterpretation of CBC data. Current Interpretive Data was last revised on 2017. Testing performed by: [address] [address] Basophil pct 0.1 % CHRIS ACUNA Comment: Interpretive Data Percent cell count reference ranges are not reported, since discordance with absolute values may lead to misinterpretation of CBC data. Current Interpretive Data was last revised on 2017. Testing performed by: [address] [address] Blood 12/17/2024 11:0 7 AM CDT 12/17/2024 11:09 AM CDT Bia Bryant PHARMACISTS LAB BLOOD ORDERABLES Final Result Performing Organization Address City/State/[facility] Co de Phone Number CHRIS [address] [facility] Department [place] [address] * CBC with auto differential (12/17/2024 11:07 AM CDT) WBC 7.67 3.80 - 9.90 K/cumm Comment:Testing performed by : [address] [address] Hgb 13.2 11.9 - 15.5 g/dL CHRIS ACUNA Comment:Testing performed by : [address] [address] Hct 37.3 35.6 - 45.5 % CHRIS ACUNA Comment:Testing performed by : [address] [address] Plt 271 150 - 400 K/cumm CHRIS ACUNA Comment:Testing performed by : [address] [address] MPV 10.0 9.1 - 12.3 fL CHRIS ACUNA Comment:Testing performed by : [address] [address] RBC 4.13 3.90 - 5.20 M/cumm CHRIS ACUNA Comment:Testing performed by : [address] [address] MCV 90.3 81.3 - 96.4 fL CHRIS Comment:Testing performed by : [address] [address] MCH 32.0 27.1 - 33.3 pg CHRIS ACUNA Comment:Testing performed by : [address] [address] MCHC 35.4 32.3 - 35.7 g/dL CHRIS Comment:Testing performed by : [address] [address] RDW CV 13.2 11.1 - 14.9 % CHRIS Comment:Testing performed by : [address] [address] RDW SD 43.8 35.7 - 48.1 fL CHRIS Comment:Testing performed by : [address] [address] NRBC abs 0.00 0.00 - 0.01 K/cumm CHRIS Comment:Testing performed by : [address] [address] ANC Prelim 4.61 1.50 - 6.50 K/cumm CHRIS Comment: Interpretive Data The rapid ANC is a preliminary automated count and may vary from the final ANC (Neut Abs) reported in the WBC differential that follows. Current interpretive data was last revised 2024. Testing performed by: [address] [address] Blood 12/17/2024 11:0 7 AM CDT 12/17/2024 11:09 AM CDT us Bia Bryant NP LAB BLOOD ORDERABLES Final Result CHRIS [address] [facility] Department of Laboratories [place], [place] [id number] * Reticulocyte Count (12/17/2024 11:07 AM CDT) [facility] Signature Retics, absolute 77 20 - 87 K/cumm Comment:Testing performed by : [facility], [address] [place] [address]., [address] Retics 1.9 0.4 - 2.9 % CHRIS ACUNA Comment:Testing performed by : [facility], [address] [place] [address]., [address] Reticulocyte Hgb 36.7 30.5 - 38.0 pg CHRIS ACUNA Comment:Testing performed by : [address] [address] Blood 12/17/2024 11:0 7 AM CDT 12/17/2024 11:09 AM CDT Bia Bryant PHARMACISTS LAB BLOOD ORDERABLES Final Result Performing Organization Address [facility] Co de Phone Number GURVIND[address] [place] [address] * IgG (12/17/2024 11:07 AM CDT) Immunoglobulin G 921 700 - 1,600 mg/dL Blood 12/17/2024 11:0 7 AM CDT 12/17/2024 2:29 PM CDT Bia Bryant PHARMACISTS LAB BLOOD ORDERABLES Final Result Performing Organization Address City/[facility] Co de Phone Number [address] [place] [place] [address] from Last 3 Months Insurance SPECIAL [employer] ARRANGEMENT [employer] MEDICARE ADVANTAGE [employer] Care Teams Horse Farm Manager Relationship Specialty Start Date End Date Devin Saldana MD [address] [place] [address] PCP - General 11/14/17 Bia Bryant NP [address] [place] [address] Nurse Practitioner Nurse Practitioner 10/30/23
--- OUTSIDE RECORDS SUMMARY | 2025-01-22 08:11 | XMS_ITS | Clinical Summary ---
Author Organization [facility] Address [address] [facility] [place] [address] Care Team Providers Care Machine Deicer Element Winder Name Role Phone Devin Saldana MD Primary Care Provider + Allergies Active Allergy Reactions Criticality Noted Date Comments Dheeraj Inhibitors Rash,Unknown Medium 09/04/2012 Cephalexin Rash,Hives,Itching,Swelling,Unknown High 09/04/2012 Ciprofloxacin Angioedema,Unknown High 09/04/2012 Codeine Itching,Rash Low 05/12/2021 Metronidazole Rash,Angioedema High 01/29/2018 Medications albuterol sulfate 90 mcg/Actuation inhaler Take 2 Puffs by inhalation every 4 hours as needed. 1 Active aspirin (ECOTRIN EC) 81 mg Tablet, Delayed Release (E.C.) Take 81 mg by mouth daily. Active celecoxib (CeleBREX) 200 mg capsule TAKE 1 CAPSULE BY MOUTH TWICE DAILY NEEDED 2 Active cholecalciferol , Vitamin D3, 50 mcg (2,000 unit) Tablet Take 1 Capsule by mouth daily. Active fluticasone propionate (FLONASE) 50 mcg/spray [place], Suspension nasal inhaler Administer 1 [place] in each nostril daily. Active hydroCHLOROthia zide (MICROZIDE) 12.5 mg capsule Take 12.5 mg by mouth daily. 1 Active LORazepam (ATIVAN) 1 mg tablet TAKE 1 TABLET BY MOUTH 2 TO 3 TIMES DAILY NEEDED FOR ANXIETY 2 Active metFORMIN (GLUCOPHAGE) 1,000 mg tablet Take 1,000 mg by mouth 2 times daily. 2 Active sertraline (ZOLOFT) 100 mg tablet Take 100 mg by mouth daily. 2 Active telmisartan (MICARDIS) 80 mg Tablet Take 80 mg by mouth daily. 2 Active verapamiL (VERELAN) 180 mg Sustained Release 24 hour capsule Take 180 mg by mouth. Active zolpidem (AMBIEN) 10 mg tablet Take 10 mg by mouth 1 time daily as needed. 1 Active pantoprazole (PROTONIX) 40 mg Tablet, Delayed Release (E.C.) Take 40 mg by mouth 2 times daily. 2 Active predniSONE (DELTASONE) 2.5 mg tablet Take 5 mg by mouth daily with breakfast. 2 Active fluticasone propion-salmete roL (ADVAIR DISKUS,WIXELA INHUB) 500-50 mcg/dose disk inhaler INHALE 1 DOSE BY MOUTH TWICE DAILY 2 Active ibuprofen (MOTRIN) 800 mg tablet Take 800 mg by mouth every 6 hours as needed for Pain, Mild. Active simvastatin (ZOCOR) 10 mg tablet Take 10 mg by mouth daily with supper. Active potassium chloride (KLOR-CON) 20 mEq Extended Release tablet Take 20 mEq by mouth daily. Active MULTIVITAMIN ORAL Take by mouth. Activ e acetaminophen (TYLENOL) 500 mg tablet Take 1 Tablet (500 mg) by mouth every 8 hours as needed for Pain, Moderate or Pain, Mild / Temperature. 10 Tablet 2 Active docusate sodium (COLACE) 100 mg capsule Take 1 Capsule (100 mg) by mouth 2 times daily. 10 Capsule 2 Active gabapentin (NEURONTIN) 100 mg capsule Take 2 Capsules (200 mg) by mouth 3 times daily. 180 Capsule 07/22/2022 12:42 PM SURVEY INSTRUMENT OPERATOR 2 Active Additional Information Patient taking differently: 300 mgOral THREE TIMES DAILY, Reported on 08/14/2022 traMADoL (ULTRAM) 50 mg tabletIndicatio ns:S/P thoracotomy Take 1 Tablet (50 mg) by mouth every 6 hours as needed for Pain. 30 Tablet 07/22/2022 12:42 PM SURVEY INSTRUMENT OPERATOR 2 Active Additional Information Patient taking differently: 100 mgOralTWO TIMES DAILY, Reported on 08/14/2022 oxyCODONE (ROXICODONE) 5 mg tabletIndicatio ns:S/P thoracotomy Take 1 Tablet (5 mg) by mouth every 4 hours as needed for Pain. 42 Tablet 07/22/2022 12:42 PM SURVEY INSTRUMENT OPERATOR 2 Active rosuvastatin (CRESTOR) 10 mg tablet Take 10 mg by mouth daily. 4 Active modafiniL (PROVIGIL) 100 mg Tablet Take 100 mg by mouth daily. Active EnbreL SureClick 50 mg/mL (1 mL) Pen Injector Inject 50 mg by subcutaneous injection every 7 days. 4 Active Mounjaro 2.5 mg/0.5 mL Pen Injector Inject 2.5 mg by subcutaneous injection every 7 days. 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 Encounters Date Type Department Care Team Description 01/06/2025 External Device Data STL ABSTRACTION Provider, Abstract 12/19/2024 Refill [facility] Oncology and Hematology [facility] [address] [place] [address] Benigno Martin MD Malignant neoplasm of upper-outer quadrant of right breast in female, estrogen receptor positive (CMS/HCC) (Primary Dx) 12/11/2024 External Device Data STL ABSTRACTION Provider, Abstract 12/09/2024 External Device Data STL ABSTRACTION Provider, Abstract 11/07/2024 10:30 AM CDT Office Visit [facility] Oncology and [facility] [address] [place] [address] Benigno Martin MD Malignant neoplasm of upper-outer quadrant of right breast in female, estrogen receptor positive (CMS/HCC) (Primary Dx); Visit for screening mammogram; Lung mass from Last 3 Months Social History Tobacco Use Types Packs/Day Years Used Date Smoking Tobacco: Never Smokeless Tobacco: Never Tobacco Cessation:Counseling Given: Not Answered Alcohol Use Standard Drinks/Week Comments Yes 0 (1 standard drink = 0.6 oz pur e alcohol) rare, holiday drink Comments No Sex and Gender Information Value Date Recorded Sex Assigned at Not on file Legal Sex Female 2:34 PM CDT Gender Identity Not on file Sexual Orientation Not on file Last Filed Vital Signs Vital Sign Reading Time Taken Comments Blood Pressure 123/77 11/07/2024 10:03 AM CDT Pulse 86 11/07/2024 10:03 AM CDT Temperature 36.6 C (97.8 F) 11/07/2024 10:03 AM CDT Respiratory Rate 15 11/07/2024 10:03 AM CDT Oxygen Saturation 93% 11/07/2024 10:03 AM CDT Inhaled Oxygen Concentration - - Weight 90.7 kg (200 lb) 11/07/2024 10:03 AM CDT Height 154.9 cm (5' 1) 08/15/2022 2:06 PM SURVEY INSTRUMENT OPERATOR Body Mass Index 37.79 08/15/2022 2:06 PM SURVEY INSTRUMENT OPERATOR Plan of Treatment Upcoming Encounters Date Type Department Care Team (Late st Contact Info) Description 03/13/2025 10:30 AM CDT Office Visit [facility] Oncology and Hematology [facility] [address] [facility] [address] [place] [address] Benigno Martin MD [address] [facility] [address] [place] [address] Health Maintenance Due Date Last Done Comments DTAP/TDAP/TD VACCINES (1 - Tdap) 10/30/1970 FIT-DNA Q 3 years 10/30/1996 FIT/FOBT Q 1 year 10/30/1996 Flex Sig/CT Colonography Q 5 years 10/30/1996 RSV VACCINE (60+ or ) (1 - Risk 60-74 years 1-dose series) 2011 PNEUMOCOCCAL VACCINE 50+ YEA RS (3 of 3 - PCV) 04/22/2018 04/22/2017, 04/22/2017, 07/01/2012 COVID-19 Vaccine (3 - Modern a risk series) 10/26/2020 09/28/2020, 08/31/2020 BREAST CANCER SCREENING 02/03/2025 02/04/20 24, 07/27/2023, 12/27/2022 INFLUENZA VACCINE (#1) 2025 2, 05/11/2021, 05/11/2020, Additional history exists OSTEOPOROSIS SCREENING 06/12/2029 06/12/2024 COLORECTAL SCREENING 01/14/2030 01/15/2020 Colorectal Cancer Screening 01/14/2030 ZOSTER VACCINE Completed 04/10/2019, 12/31/2018 Medical Devices Implanted Type Area Coremaker Machine Device Identifier Shelf Expiration Date Model / Serial / Lot Clip Ligating Horizon Lg Ti [id number] - Csc - [id number] Implanted:Qty : 1 on 07/19/2022 by Kb Jaimes MD at [facility] Right: Chest TELEFLEX- WECK CLOSURE SYS 09/12/2026 [id number] / / [id number] Clip Ligating Horizon Med Ti [id number] - Csc - [id number] Implanted:Qty : 1 on 07/19/2022 by Kb Jaimes MD at [facility] Right: Chest TELEFLEX- WECK CLOSURE SYS 01/06/2025 [id number] / / [id number] Sealant Progel Pleural 4ml [id number] - [id number] Implanted:Qty : 1 on 07/19/2022 by Kb Jaimes MD at [facility] Tissue BARD DAVOL [id number] 01/02/2024 [id number] / / [id number] Procedures Procedure Name Priority Date/Time Associated Diagnosis Comments XR DEXA BONE DENSITY AXIAL 1 OR MORE SITES Routine 06/12/2024 10:45 AM SURVEY INSTRUMENT OPERATOR MAMMO SCREENING BILAT Routine 02/04/2024 3:11 PM CDT from Last 3 Months or Most Recently Relevant to Health Maintenance Results * XR DEXA BONE DENSITY AXIAL 1 OR MORE SITES (06/12/2024 10:45 AM SURVEY INSTRUMENT OPERATOR) Anatomical Region Laterality Modality Other Benigno Martin MD DIAGNOSTIC IMAGING ORDERABLES F inal Result * MAMMO SCREENING BILAT (02/04/2024 3:11 PM CDT) Anatomical Region Laterality Modality Breast Bilateral Mammography Benigno Martin MD MAMMO ORDERABLES Final Result from Last 3 Months or Most Recently Relevant to Health Maintenance Insurance [facility] [employer] [facility] Advance Directives For more information, please contact: [phone] * Full Code (Latest Code Status on File) Date Activated Date Inactivated Comments 07/19/2022 2:13 PM 07/22/2022 4:17 PM * Full Code Date Activated Date Inactivated Comments 07/19/2022 9:17 AM 07/19/2022 2:12 PM Care Teams Machine Deicer Element Winder Relationship Specialty Start Date End Date Devin Saldana MD [address] [place] [address] PCP - General Internal Medicine 04/11/22
--- NOTE | 2025-01-22 08:39 | EST_ITS ---
Patient Info Name: Kathe Augustin Age: 74 years : 1950 Gender: Female Ht: 61 in Wt: 191 lbs BSA: 1.97 m2 HR: 61 bpm BP: 161 / 85 mmHg Exam Date: 01/22/2025 8:39 AM Patient Status: O Admit Date: 01/22/2025 Exam Type: CA stress morris w NM A regadenoson stress test was performed. Staff Referring Physician: Devin Saldana MD Attending Provider: Devin Saldana MD Exercise Technologist: Flaquita Castillo Exercise Physician: Semaj Lopez DO Summary 1. 1. Negative lexiscan stress test for ischemic ST changes by ECG criteria. 2. 2. Baseline hypertension. 3. 3. Nuclear scan to follow and will be reported separately. Please correlate with it. 4. 4. Patient informed of the above results. Protocol: Lexiscan Stress ECG Details Stage: REST Duration (min): 0 min : 29 sec HR (bpm): 76 SBP (mmHg): --- DBP (mmHg): --- Stage: REST Duration (min): 8 min : 57 sec HR (bpm): 76 SBP (mmHg): 163 DBP (mmHg): 86 Stage: STAGE 1 Duration (min): 0 min : 59 sec HR (bpm): 84 SBP (mmHg): 173 DBP (mmHg): 82 Stage: RECOVERY Duration (min): 1 min : 0 sec HR (bpm): 91 SBP (mmHg): 173 DBP (mmHg): 82 Stage: RECOVERY Duration (min): 2 min : 0 sec HR (bpm): 93 SBP (mmHg): 173 DBP (mmHg): 82 Stage: RECOVERY Duration (min): 3 min : 0 sec HR (bpm): 89 SBP (mmHg): 173 DBP (mmHg): 82 Stage: RECOVERY Duration (min): 3 min : 16 sec HR (bpm): 85 SBP (mmHg): 158 DBP (mmHg): 78 Rest HR: 76 bpm Peak HR: 93 bpm Rest Sys BP: 163 mmHg Peak Sys BP: 173 mmHg Max Pred HR: 147 bpm % Max Pred HR: 63 % Target HR: 125 bpm Max RPP: 16,089 bpm*mmHg Termination Reason: Completed protocol Cardiac Symptoms: None Total Time: 1 min : 0 sec Rest Guzmán BP: 86 mmHg Peak Guzmán BP: 82 mmHg Total Dose: 0.4 mg Resting ECG Sinus rhythm. Stress ECG No ST changes. Arrhythmias None. Report Signatures
== END 2025-01-22 08:08 | disposition home or self-care (01) ==
LOC: ANHCARD 08:08
PROVIDERS: PCP Internal Medicine; Visit Provider Internal Medicine
DX: R93.1 Abnormal findings on diagnostic imaging of heart and coronary circulation (principal); I10 Essential (primary) hypertension; E11.9 Type 2 diabetes mellitus without complications; E78.2 Mixed hyperlipidemia; R07.9 Chest pain, unspecified; Z68.37 Body mass index [BMI] 37.0-37.9, adult
CPT/HCPCS: 78452; 93017; A9502; J2785

== ENCOUNTER 2025-02-06 08:22 | Outpatient (CLI) | payer MEDICARE, SELFPAY ==
--- NOTE | ~2025-02-06 | CT_ITS ---
Clinical Indication: Lung mass CT Scan of the Chest with Contrast: Technique: Contiguous sections were acquired throughout the chest after intravenous administration of 75 cc of Omnipaque 350. Dose reduction technique was used on this scan by utilizing automated exposu re control and iterative reconstruction technique. The dose-length product (DLP) was 572.24 mGy-cm. Findings: There is no evidence of any significant mediastinal, hilar or axillary lymphadenopathy. There is no f illing defect in the pulmonary arterial tree to suggest pulmonary embolus. There is no evidence of ao rtic dissection or aneurysm. There is no evidence of pleural or pericardial effusion. 5 mm posterior right upper lobe pulmonary nodule present (axial image 25). There is chronic interstit ial change or cystic bronchiectasis in the posterior medial aspect of the right upper lobe. There is probable postoperative change the right lung base. Images through the upper abdomen reveal no abnormalities. Impression: Probable postoperative change right lung base. There is adjacent scarring and postoperative distortio n. 5 mm right upper lobe pulmonary nodule, as above. Consider one-year follow-up exam for a high-risk pa tient. Interstitial or cystic bronchiectatic change in the posterior medial aspect of the right upper lobe. Reviewed, dictated and finalized at location M. Impression: Probable postoperative change right lung base. There is adjacent scarring and p ostoperative distortion. 5 mm right upper lobe pulmonary nodule, as above. Consider one-year follow-up e xam for a high-risk patient. Interstitial or cystic bronchiectatic change in the posterior medial aspect of the right upper lobe.
--- NOTE | ~2025-02-06 | CT_ITS ---
EXAMINATION: CT sinus wo con DATE: 02/06/2025 08:50 INDICATION: Chronic maxillary sinusitis TECHNIQUE: Computed tomography (CT) of the paranasal sinuses was performed without intravenous contra st. The dose-length product was 186.71 mGy-cm. Automated exposure control and iterative reconstructio n technique were employed. COMPARISON: None FINDINGS: There is no significant air-fluid level. There is mild mucosal thickening of the left maxil selwyn sinus. There is partial soft tissue opacification of the right ostiomeatal unit. Left ostiomeata l unit is patent. Leftward nasal septal bowing. There are are small bilateral jaciel bullosa. Mastoid s are pneumatized. IMPRESSION: 1. Mild sinus disease with partial occlusion right ostiomeatal unit. Reviewed, dictated and finalized at location B.
--- OUTSIDE RECORDS SUMMARY | 2025-02-06 08:25 | XMS_ITS | Clinical Summary ---
Author Organization [facility] Address [address] [place] [address] Care Team Providers Care Ball Holder Name Role Phone Devin Saldana MD Primary Care Provider [phone] Source Comments [facility],non-owned Affiliates and Associated Physician Practices is amultiple site organization consisting of ambulatory clinics and hospital sitesin [place], [place], [place] and [place]. This disclosure is being madepursuant to the Care Everywhere program and may not contain all information available regarding this patient. 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
--- OUTSIDE RECORDS SUMMARY | 2025-02-06 08:25 | XMS_ITS | Clinical Summary ---
Author [facility] Address [address] [place] [address] Care Team Providers Care Oracle Sql Developer Name Role Phone Devin Saldana MD Primary [...] daily. Active fluticasone propionate (FLONASE) 50 mcg/spray [place], Suspension nasal inhaler Administer 1 [place] in each nostril daily. Active hydroCHLOROthia zide [...] times daily. 180 Capsule 07/22/2022 12:42 PM WIND ENERGY ENGINEER 2 Active Additional Information Patient taking differently: 300 mgOral THREE TIMES DAILY, Reported on 08/14/2022 traMADoL (ULTRAM) 50 mg tabletIndicatio ns:S/P thoracotomy Take 1 Tablet (50 mg) by mouth every 6 hours as needed for Pain. 30 Tablet 07/22/2022 12:42 PM WIND ENERGY ENGINEER 2 Active Additional Information Patient taking differently: 100 mgOralTWO TIMES DAILY, Reported on 08/14/2022 oxyCODONE (ROXICODONE) 5 mg tabletIndicatio ns:S/P thoracotomy Take 1 Tablet (5 mg) by mouth every 4 hours as needed for Pain. 42 Tablet 07/22/2022 12:42 PM WIND ENERGY ENGINEER 2 Active rosuvastatin (CRESTOR) 10 mg tablet [...] Encounters Date Type Department Care Team Description 02/04/2025 External Device Data STL ABSTRACTION Provider, Abstract 02/03/2025 External Device Data STL ABSTRACTION Provider, Abstract 01/06/2025 External Device Data STL ABSTRACTION Provider, Abstract 12/19/2024 Refill [facility] Oncology and Hematology [place] [address] [place] [address] Benigon Martin MD Malignant neoplasm of upper-outer quadrant of right breast in female, estrogen receptor positive (CMS/HCC) (Primary Dx) 12/11/2024 External Device Data STL ABSTRACTION Provider, Abstract 12/09/2024 External Device Data STL ABSTRACTION Provider, Abstract 11/07/2024 10:30 AM CDT Office Visit [facility] Oncology and Hematology [facility] [address] [place] [address] Benigno Martin MD Malignant neoplasm of upper-outer [...] 154.9 cm (5' 1) 08/15/2022 2:06 PM WIND ENERGY ENGINEER Body Mass Index 37.79 08/15/2022 2:06 PM WIND ENERGY ENGINEER Plan of Treatment Upcoming Encounters Date Type Department Care Team (Late st Contact Info) Description 03/13/2025 10:30 AM CDT Office Visit [facility] Oncology and Hematology - [place] [address] [facility] [address] [place] [address] Benigno Martin MD [address] [facility] [address] [place] [address] Health Maintenance Due Date Last [...] 04/10/2019, 12/31/2018 Medical Devices Implanted Type Area Towel Cabinet Repairer Device Identifier Shelf Expiration Date Model / Serial / Lot Clip Ligating Horizon Lg Ti [id number] - Csc - [id number] Implanted:Qty : 1 on 07/19/2022 by Kb Jaimes MD at [facility] Right: Chest TELEFLEX- WECK CLOSURE SYS 09/12/2026 [id number] / / [id number] Clip Ligating Horizon Med Ti [id number] - Csc - [id number] Implanted:Qty : 1 on 07/19/2022 by Kb Jaimes MD at [facility] Right: Chest TELEFLEX- WECK CLOSURE SYS 01/06/2025 [id number] / / [id number] Sealant Progel Pleural 4ml [id number] - [id number] Implanted:Qty : 1 on 07/19/2022 by Kb Jaimes MD at [facility] Tissue BARD DAVOL [id number] 01/02/2024 [id number] / / [id number] Procedures Procedure Name Priority Date/Time Associated Diagnosis Comments XR DEXA BONE DENSITY AXIAL 1 OR MORE SITES Routine 06/12/2024 10:45 AM WIND ENERGY ENGINEER MAMMO SCREENING BILAT Routine 02/04/2024 3:11 PM CDT from Last 3 Months or Most Recently Relevant to Health Maintenance Results * XR DEXA BONE DENSITY AXIAL 1 OR MORE SITES (06/12/2024 10:45 AM WIND ENERGY ENGINEER) Anatomical Region Laterality Modality Other Benigno Martin MD DIAGNOSTIC IMAGING ORDERABLES F inal Result * MAMMO SCREENING BILAT (02/04/2024 3:11 PM CDT) Anatomical Region Laterality Modality Breast Bilateral Mammography Benigno Martin MD MAMMO ORDERABLES Final Result from Last 3 Months or Most Recently Relevant to Health Maintenance Insurance [facility] Advance Directives For more information, please contact: [phone] * Full Code (Latest Code Status on File) Date Activated Date Inactivated Comments 07/19/2022 2:13 PM 07/22/2022 4:17 PM * Full Code Date Activated Date Inactivated Comments 07/19/2022 9:17 AM 07/19/2022 2:12 PM Care Teams Oracle Sql Developer Relationship Specialty Start Date End Date Devin Saldana MD [address] [place] [address] PCP - General Internal Medicine 04/11/22
--- OUTSIDE RECORDS SUMMARY | 2025-02-06 08:25 | XMS_ITS | Encounter Summary ---
Author Organization [facility] Address [address] [place] [address] Care Team Providers Care Forensic Examiner Name Role Phone Devin Saldana MD Primary Care Provider [phone] Encounter Details Date Type Department Care Team (Late st Contact Info) Description 03/19/2019 Lab Requisition [facility] DermPath Lab [address] [facility] [place] [address] Jeanie Anthony MD [address] [facility] [address] [place] [address] Social History Tobacco Use Types Packs/Day Years Used Date Smoking Tobacco: Never Alcohol Use Standard Drinks/Week Comments Yes 0 (1 standard drink = 0.6 oz pur e alcohol) Comments Unknown Sex and Gender Information Value Date Recorded Sex Assigned at Not on file 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 Gender Identity Not on file Sexual Orientation Not on file documented as of this encounter Plan of Treatment Not on file documented as of this encounter Procedures Procedure Name Priority Date/Time Associated Diagnosis Comments DERMATOPATH TECHNICAL REPORT Routine 03/18/2019 12:00 AM CDT documented in this encounter Results * DERMATOPATH TECHNICAL REPORT (03/18/2019 12:00 AM CDT) Case Report Dermatopathology Report Case: [id number] Authorizing Provider: Jeanie Anthony MD Collected: 03/18/2019 12:00 AM Ordering Location: [facility] Derm[facility] Lab Received: 03/19/2019 07:45 AM Pathologist: Kal Galvan MD Specimen: Skin, left corner of mouth 2:39 PM CDT DERMATOPATHOLOGY LABORATORY Addendum 1 At the request of the diagnosing physician, the technical component for Gram test and HSV was performed by [facility] Dermatopathology Laboratory. 2:39 PM CDT DERMATOPATHOLOGY LABORATORY Addendum electronically signed by Kal Galvan MD on 03/22/2019 at 1439 CDT Clinical History Folliculitis vs BCC vs other. Irrit. 2:39 PM CDT DERMATOPATHOLOGY LABORATORY Gross Description Specimen A: Received is one formalin filled container labeled with the patient's name and designated left corner of mouth. The specimen consists of a punch measuring [id number]. Jar 0. [facility] Dermatopathology Laboratory performed the technical component only. [...] by the Dermatopathology Laboratory at [facility], directed by Dr. Radha Galvan. These tests [...] DERMATOPATHOLOGY LABORATORY [facility] - Department of Dermatology [address] [place] [address], 5th Floor [place] [address], [facility] [phone] documented in this encounter Visit Diagnoses Not on filedocumented in this encounter Care Teams Forensic Examiner Relationship Specialty Start Date End Date Devin Saldana MD [address] [place] [address] PCP - General 11/02/09 documented as of this encounter
--- OUTSIDE RECORDS SUMMARY | 2025-02-06 08:25 | XMS_ITS | Encounter Summary ---
Author Organization [facility] Address [address] [place] [address] Care Team Providers Care Foreign Trade Teacher Name Role Phone Devin Saldana MD Primary Care Provider [phone] Encounter Details Date Type Department Care Team (Late st Contact Info) Description 04/08/2024 Lab Requisition [facility] [place] [facility] - DermPath Lab [address] [facility], [place] [address] Jeanie Anthony MD [address] [facility] 3 [place] [address] Social History Tobacco Use Types Packs/Day Years Used Date Smoking Tobacco: Never Smokeless Tobacco: Never Alcohol Use Standard Drinks/Week Comments Not Currently 1 (1 standard drink = 0.6 oz pur e alcohol) Comments Unknown Sex and Gender Information Value Date Recorded Sex Assigned at Not on file 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 Gender Identity Not on file Sexual Orientation Not on file documented as of this encounter Plan of Treatment Not on file documented as of this encounter Procedures Procedure Name Priority Date/Time Associated Diagnosis Comments DERMATOPATHOLOGY Routine 04/08/2024 10:0 0 AM CDT documented in this encounter Results * DERMATOPATHOLOGY (04/08/2024 10:00 AM CDT) Case Report Dermatopathology Report Case: [id number] Authorizing Provider: Jeanie Anthony MD Collected: 04/08/2024 10:00 AM Ordering Location: [facility] - Received: 04/08/2024 03:39 PM [...] characteristic determined by the Dermatopathology Laboratory at [facility], directed by Dr. Radha Galvan. These tests need not be, and therefore are not, approved by the [place] Food and Drug Administration. The tests are used for clinical purposes. Billing Codes Specimen Charges Stain Charges 48315 1 4 2:04 PM CDT DERMATOPATHOLOGY LABORATORY Embedded Images 4 2:04 PM CDT DERMATOPATHOLOGY LABORATORY Pathology/Cytolo gy TISSUE SPECIMEN FROM SKIN / Unknown 04/08/2024 10:00 AM CDT 04/08/2024 3:39 PM CDT us Jeanie Anthony MD LAB - PATHOLOGY/CYTOLOGY OR DERABLES Final Result DERMATOPATHOLOGY LABORATORY [facility] [place] [facility] - Department of Dermatology [facility] [address] [place] [address], [address]rd Floor [address] [phone] documented in this encounter Visit Diagnoses Not on filedocumented in this encounter Care Teams Foreign Trade Teacher Relationship Specialty Start Date End Date Devin Saldana MD [address] [place] [address] PCP - General 11/02/09 documented as of this encounter
--- OUTSIDE RECORDS SUMMARY | 2025-02-06 08:25 | XMS_ITS | Clinical Summary ---
Author Organization [facility] Address [address] [facility] [place] [address] Care Team Providers Care Rocket Assembly Operator Name Role Phone Devin Saldana MD Primary Care Provider [phone] Bia Bryant CHEMICAL PUMPER Unavailable [phone] Allergies Active Allergy Reactions Criticality Noted Date [...] Team Description 01/14/2025 8:45 AM CDT Infusion [facility] at [address] [place] [address] Selective deficiency of IgG (HCC) (Primary Dx) 01/14/2025 8:15 AM CDT Lab [facility] at [address] [address] Selective deficiency of IgG (HCC) 12/17/2024 11:30 AM CDT Infusion [facility] at [address] [place] [address] Selective deficiency of IgG (HCC) (Primary Dx) 12/17/2024 11:00 AM CDT Lab [facility] at [address] [address] Selective deficiency of IgG (HCC) 12/17/2024 Orders Only [facility] Hematology [facility] [address] [place] [address] Mahogany Suarez Selective deficiency of IgG (HCC) (Primary Dx) 11/19/2024 12:00 PM CDT Infusion [facility] at [address] [address] Selective deficiency of IgG (HCC) (Primary Dx) 11/19/2024 Orders Only [facility] Hematology [facility] [address] [place] [address] Mahogany Suarez from Last 3 Months Immunizations Immunization [...] on file Legal Sex Female 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 Gender Identity Not on file Sexual Orientation [...] Fall Risk Assessment 02/23/2024 02/22/2023 Covid-19 Vaccine (5 - 2023-2 5 season) 2024 05/11/2021, 09/28/2020, 08/31/2020, Additional history exists Influenza Vaccine (#1) 2025 , 05/11/2020, 05/11/2020, Additional history exists Osteoporosis Screening-Bone Density Scan 06/12/2026 06/12/2024 Zoster Vaccine Completed 04/10/2019, 12/31/2018 Medical Devices Implanted Type Area Materials Planning Analyst Device Identifier Shelf Expiration Date Model / Serial / Lot [employer]/C R Bard Ventralight St Sepra Echo Ps 8x6in Monofilament Absorbable Low Latex Free [id number] - [id number] Implanted:Qty: 1 on 02/22/2023 by Robin Ray DO at [facility] Mesh N/A: Abdomen [employer]/C R Bard [id number] 06/19/2023 [id number] / / [id number] Procedures Procedure Name Priority Date/Time Associated Diagnosis [...] - 9.90 K/cumm Comment:Testing performed by : [address] [address] Hgb 12.3 11.9 - 15.5 g/dL CHRIS Comment:Testing performed by : [address] [address] Hct 36.1 35.6 - 45.5 % CHRIS Comment:Testing performed by : [address] [address] Plt 236 150 - 400 K/cumm CHRIS Comment:Testing performed by : [address] [address] MPV 9.7 9.1 - 12.3 fL CHRIS Comment:Testing performed by : [address] [address] RBC 3.84(L) 3.90 - 5.20 M/cumm CHRIS Comment:Testing performed by : [address] [address] MCV 94.0 81.3 - 96.4 fL CHRIS Comment:Testing performed by : [address] [address] MCH 32.0 27.1 - 33.3 pg CHRIS ACUNA Comment:Testing performed by : [address] [address] MCHC 34.1 32.3 - 35.7 g/dL CHRIS Comment:Testing performed by : [address] [address] RDW CV 13.2 11.1 - 14.9 % CHRIS Comment:Testing performed by : [address] [address] RDW SD 45.1 35.7 - 48.1 fL CHRIS Comment:Testing performed by : [address] [address] NRBC abs 0.00 0.00 - 0.01 K/cumm CHRIS Comment:Testing performed by : [address] [address] ANC Prelim 6.34 1.50 - 6.50 K/cumm CHRIS Comment: Interpretive Data The rapid ANC is a preliminary automated count and may vary from the final ANC (Neut Abs) reported in the WBC differential that follows. Current interpretive data was last revised 2024. Testing performed by: [address] [address] Blood 01/14/2025 8:22 AM CDT 01/14/2025 8:24 AM CDT us Bia Bryant NP LAB BLOOD ORDERABLES Final Result GURVINDERDENILSON [address] [facility] Department of Laboratories [place], [place] [id number] * (ABNORMAL) Manual Differential (01/14/2025 8:22 AM CDT) [facility] Signature Differential Manual Comment:Testing performed by : [address] [address] Cells Counted 100 CHRIS Comment:Testing performed by : [address] [address] Neutrophil abs 6.90(H) 1.50 - 6.50 K/cumm CHRIS Comment:Testing performed by : [address] [address] Lymphocyte abs 2.17 0.80 - 3.30 K/cumm CHRIS Comment:Testing performed by : [address] [address] Monocyte abs 0.38 0.20 - 0.80 K/cumm CHRIS Comment:Testing performed by : [address] [address] Neutrophil pct 73.0 % CHRIS Comment: Interpretive Data Percent cell count reference ranges are not reported, since discordance with absolute values may lead to misinterpretation of CBC data. Current Interpretive Data was last revised on 2017. Testing performed by: [address] [address] Lymphocyte pct 23.0 % CHRIS Comment: Interpretive Data Percent cell count reference ranges are not reported, since discordance with absolute values may lead to misinterpretation of CBC data. Current Interpretive Data was last revised on 2017. Testing performed by: [address] [address] Monocyte pct 4.0 % CHRIS Comment: Interpretive Data Percent cell count reference ranges are not reported, since discordance with absolute values may lead to misinterpretation of CBC data. Current Interpretive Data was last revised on 2017. Testing performed by: [address] [address] Blood 01/14/2025 8:22 AM CDT 01/14/2025 8:24 AM CDT Bia Bryant NP LAB BLOOD ORDERABLES Final Result CHRIS [address] [place] [address] * Reticulocyte Count (01/14/2025 8:22 AM CDT) [facility] Retics, absolute 79 20 - 87 K/cumm Comment:Testing performed by : [address] [address] Retics 2.1 0.4 - 2.9 % CHRIS Comment:Testing performed by : [address] [address] Reticulocyte Hgb 36.0 30.5 - 38.0 pg CHRIS Comment:Testing performed by : [address] [address] Blood 01/14/2025 8:22 AM CDT 01/14/2025 8:24 AM CDT Bia Bryant CHEMICAL PUMPER LAB BLOOD ORDERABLES Final Result Performing Organization Address [facility] Co de Phone Number [address] [address] * IgG (01/14/2025 8:22 AM CDT) [facility] Immunoglobulin G 789 700 - 1,600 mg/dL Blood 01/14/2025 8:22 AM CDT 01/14/2025 2:26 PM CDT Bia Bryant LAB BLOOD ORDERABLES Final Result Performing Organization Address [facility] de Phone Number [place] [phone] [place] [address] * (ABNORMAL) Differential, auto (12/17/2024 11:07 AM CDT) [facility] Neutrophil abs 4.61 1.50 - 6.50 K/cumm Comment:Testing performed by : [address] [address] Imm gran abs 0.58(H) 0.00 - 0.10 K/cumm CHRIS Comment:Testing performed by : [address], [place]., [address] Lymphocyte abs 1.88 0.80 - 3.30 K/cumm CHRIS Comment:Testing performed by : [address], [place]., [address] Monocyte abs 0.55 0.20 - 0.80 K/cumm HCRIS Comment:Testing performed by : [address], [place]., [address] Eosinophil abs 0.04 0.00 - 0.50 K/cumm CHRIS Comment:Testing performed by : [address], [place]., [address] Basophil abs 0.01 0.00 - 0.10 K/cumm CHRIS Comment:Testing performed by : [address] [address] Neutrophil pct 60.1 % CHRIS Comment: Interpretive Data Percent cell count reference ranges are not reported, since discordance with absolute values may lead to misinterpretation of CBC data. Current Interpretive Data was last revised on 2017. Testing performed by: [address] [address] Imm gran pct 7.6 % CHRIS Comment: Interpretive Data Percent cell count reference ranges are not reported, since discordance with absolute values may lead to misinterpretation of CBC data. Current Interpretive Data was last revised on 2017. Testing performed by: [address] [address] Lymphocyte pct 24.5 % CHRIS Comment: Interpretive Data Percent cell count reference ranges are not reported, since discordance with absolute values may lead to misinterpretation of CBC data. Current Interpretive Data was last revised on 2017. Testing performed by: [address] [address] Monocyte pct 7.2 % CHRIS Comment: Interpretive Data Percent cell count reference ranges are not reported, since discordance with absolute values may lead to misinterpretation of CBC data. Current Interpretive Data was last revised on 2017. Testing performed by: [address] [address] Eosinophil pct 0.5 % CHRIS ACUNA Comment: Interpretive Data Percent cell count reference ranges are not reported, since discordance with absolute values may lead to misinterpretation of CBC data. Current Interpretive Data was last revised on 2017. Testing performed by: [address] [address] Basophil pct 0.1 % CHRIS ACUNA Comment: Interpretive Data Percent cell count reference ranges are not reported, since discordance with absolute values may lead to misinterpretation of CBC data. Current Interpretive Data was last revised on 2017. Testing performed by: [address] [address] Blood 12/17/2024 11:0 7 AM CDT 12/17/2024 11:09 AM CDT Bia Bryant CHEMICAL PUMPER LAB BLOOD ORDERABLES Final Result Performing Organization Address City/State/[facility] Co de Phone Number CHRIS [address] [facility] Department [place] [address] * CBC with auto differential (12/17/2024 11:07 AM CDT) WBC 7.67 3.80 - 9.90 K/cumm Comment:Testing performed by : [address] [address] Hgb 13.2 11.9 - 15.5 g/dL CHRIS ACUNA Comment:Testing performed by : [address] [address] Hct 37.3 35.6 - 45.5 % CHRIS ACUNA Comment:Testing performed by : [address] [address] Plt 271 150 - 400 K/cumm CHRIS ACUNA Comment:Testing performed by : [address] [address] MPV 10.0 9.1 - 12.3 fL CHRIS ACUNA Comment:Testing performed by : [address] [address] RBC 4.13 3.90 - 5.20 M/cumm CHRIS ACUNA Comment:Testing performed by : [address] [address] MCV 90.3 81.3 - 96.4 fL CHRIS Comment:Testing performed by : [address] [address] MCH 32.0 27.1 - 33.3 pg CHRIS ACUNA Comment:Testing performed by : [address] [address] MCHC 35.4 32.3 - 35.7 g/dL CHRIS Comment:Testing performed by : [address] [address] RDW CV 13.2 11.1 - 14.9 % CHRIS Comment:Testing performed by : [address] [address] RDW SD 43.8 35.7 - 48.1 fL CHRIS Comment:Testing performed by : [address] [address] NRBC abs 0.00 0.00 - 0.01 K/cumm CHRIS Comment:Testing performed by : [address] [address] ANC Prelim 4.61 1.50 - 6.50 K/cumm CHRIS Comment: Interpretive Data The rapid ANC is a preliminary automated count and may vary from the final ANC (Neut Abs) reported in the WBC differential that follows. Current interpretive data was last revised 2024. Testing performed by: [address] [address] Blood 12/17/2024 11:0 7 AM CDT 12/17/2024 11:09 AM CDT us Bia Bryant NP LAB BLOOD ORDERABLES Final Result CHRIS [address] [facility] Department of Laboratories [place], [place] [id number] * Reticulocyte Count (12/17/2024 11:07 AM CDT) [facility] Signature Retics, absolute 77 20 - 87 K/cumm Comment:Testing performed by : [facility], [address] [place] [address]., [address] Retics 1.9 0.4 - 2.9 % CHRIS ACUNA Comment:Testing performed by : [facility], [address] [place] [address]., [address] Reticulocyte Hgb 36.7 30.5 - 38.0 pg CHRIS ACUNA Comment:Testing performed by : [address] [address] Blood 12/17/2024 11:0 7 AM CDT 12/17/2024 11:09 AM CDT Bia Bryant CHEMICAL PUMPER LAB BLOOD ORDERABLES Final Result Performing Organization Address [facility] Co de Phone Number GURVINDER[address] [place] [address] * IgG (12/17/2024 11:07 AM CDT) Immunoglobulin G 921 700 - 1,600 mg/dL Blood 12/17/2024 11:0 7 AM CDT 12/17/2024 2:29 PM CDT Bia Bryant CHEMICAL PUMPER LAB BLOOD ORDERABLES Final Result Performing Organization Address City/[facility] Co de Phone Number [address] [place] [address] from Last 3 Months Insurance SPECIAL CONTRACT ARRANGEMENT [facility] Address: [address] [place] [address] UHC MEDICARE ADVANTAGE [facility] Address: [address] [place] [address] Care Teams Rocket Assembly Operator Relationship Specialty Start Date End Date Devin Saldana MD [address] [place] [address] PCP - General 11/14/17 Bia Bryant NP [address] [place] [address] Nurse Practitioner Nurse Practitioner 10/30/23
--- OUTSIDE RECORDS SUMMARY | 2025-02-06 08:25 | XMS_ITS | Clinical Summary ---
Author Organization [facility] Address [address], [facility] [address] [place] [address] Phone Care Team Providers Care Terry Cloth Cutter Hand Name Role Phone Devin Saldana MD Primary Care Provider Social History Tobacco Use Types Packs/Day Years [...] Relevant to Health Maintenance Insurance MEDICARE C [facility] Care Teams Terry Cloth Cutter Hand Relationship Specialty Start Date End Date Devin Saldana MD PCP - General Internal Medicine 08/25/19
--- OUTSIDE RECORDS SUMMARY | 2025-02-06 08:25 | XMS_ITS | Encounter Summary ---
Author Organization [facility] Address [address] [place] [address] Care Team Providers Care Gear Lapper Name Role Phone Devin Saldana MD Primary Care Provider [phone] Encounter Details Date Type Department Care Team (Late st Contact Info) Description 02/14/2023 Lab Requisition [facility] - DermPath Lab [address] [facility], [place] [address] Carmen Florez MD [address] [facility] 3 [place] [address] Social History Tobacco Use Types Packs/Day Years Used Date Smoking Tobacco: Never Smokeless Tobacco: Never Alcohol Use Standard Drinks/Week Comments Not Currently 1 (1 standard drink = 0.6 oz pur e alcohol) Comments Unknown Sex and Gender Information Value Date Recorded Sex Assigned at Not on file Legal 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 Female 6:24 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 Gender Identity Not on file Sexual Orientation Not on file documented as of this encounter Plan of Treatment Not on file documented as of this encounter Procedures Procedure Name Priority Date/Time Associated Diagnosis Comments DERMATOPATHOLOGY Routine 02/14/2023 9:29 AM CDT documented in this encounter Results * DERMATOPATHOLOGY (02/14/2023 9:29 AM CDT) Case Report Dermatopathology Report Case: [id number] Authorizing Provider: Carmen Florez MD Collected: 02/14/2023 09:29 AM Ordering Location: [facility] DermPath Lab Received: 02/14/2023 04:32 PM Pathologist: [...] characteristic determined by the Dermatopathology Laboratory at [facility], directed by Dr. Radha Galvan. These tests need not be, and therefore are not, approved by the [place] Food and Drug Administration. The tests are used for clinical purposes. Billing Codes Specimen Charges Stain Charges 05777 1 3 2:20 PM CDT DERMATOPATHOLOGY LABORATORY Embedded Images 3 2:20 PM CDT DERMATOPATHOLOGY LABORATORY Pathology/Cytolo gy TISSUE SPECIMEN FROM SKIN / Unknown 02/14/2023 9:29 AM CDT 02/14/2023 4:32 PM CDT Carmen Florez MD LAB - PATHOLOGY/CYTOLOGY ORD ERABLES Final Result DERMATOPATHOLOGY LABORATORY [facility] - Department of Dermatology [facility] Medicine [address] [place] [address], [address]rd Floor [address] [phone] documented in this encounter Visit Diagnoses Not on filedocumented in this encounter Care Teams Gear Lapper Relationship Specialty Start Date End Date Devin Saldana MD [address] [place] [address] PCP - General 11/02/09 documented as of this encounter
--- OUTSIDE RECORDS SUMMARY | 2025-02-06 08:25 | XMS_ITS | Clinical Summary ---
Author Organization [facility] Address [facility] [place] [address] Care Team Providers Care Agriscience Instructor Name Role Phone Devin Saldana MD Primary Care Provider [phone] Freddy Ugalde MD Unavailable Unavailable Allergies Active [...] 3 (three) times daily. 1 Active nystatin 192338 UNIT/ML suspension Take 200,000 Units by mouth 2 (two) times daily as needed. 1 Active Vitamin D, Ergocalciferol, 08131 units Cap Take 1 tablet by mouth [...] Description 12/10/2024 11:20 AM CDT [facility] [address], [address] [place] [phone] Lola Arriola NP New Patient (Referral dysphagia ) 12/10/2024 [facility] - [address], [address] [place] [phone] Artur Veronica MD 12/10/2024 Travel from Last [...] AM CDT Legal Sex Female 3:45 PM DIAGNOSTICS SALES DEVELOPER Gender Identity Female 12/10/2024 10:56 AM CDT [...] (Latest Contact Info) Description 08/13/2025 9:00 AM [facility] Hospital Encounter [facility] [place] [address] Artur Veronica MD [address] [address] 08/13/2025 9:00 AM DIAGNOSTICS SALES DEVELOPER - 08/13/2025 9:30 AM [facility] Surgery [facility] Endo/[place] [address] Artur Veronica MD [address] [address] COLONOSCOPY SCREENING Scheduled Procedures Name Priority Associated Diagnoses Date/Ti me COLONOSCOPY SCREENING Pharyngoesophageal dysphagia Gastroesophageal reflux disease, unspecified whether esophagitis present Hiatal hernia Hx of adenomatous colonic polyps Screening for colon cancer History of pyloric stenosis 08/13/2025 9:00 AM DIAGNOSTICS SALES DEVELOPER EGD Pharyngoesophageal dysphagia Gastroesophageal reflux disease, unspecified whether esophagitis present Hiatal hernia Hx of adenomatous colonic polyps Screening for colon cancer History of pyloric stenosis 08/13/2025 9:00 AM DIAGNOSTICS SALES DEVELOPER Health Maintenance Due Date Last Done Comments [...] Dexa Scan (General) Completed 06/12/2024 PHQ-2 (Physician [place]) Completed 12/10/2024 Meningococcal B Vaccine Aged Out [...] [facility] [employer] Medical Devices Implanted Type Area Auger Machine Offbearer Device Identifier Shelf Expiration Date Model / Serial / Lot Resolution 360 Ultra Clip 235cm/2.8mm Implanted:Qty: 4 on 01/02/2022 by Robin Ray DO at [facility] [employer] Clip Implant [employer] [id number] 07/01/2024 [id number] / / [id number] Clip Resolution 2.8mm 360 235cm 11mm Open - [id number] Implanted:Qty: 1 on 01/02/2022 by Robin Ray DO at [facility] [employer] Clip Implant [employer] [id number] 08/14/2024 [id number] / / [id number] Clip Resolution 2.8mm 360 235cm 11mm Open - [id number] Implanted:Qty: 1 on 01/02/2022 by Robin Ray DO at [facility] [employer] Clip Implant [employer] [id number] 07/11/2024 [id number] / / [id number] Additional Health Concerns Active Problems Noted Date Diagnosed Date Autogenerated Problem 12/10/2024 Insurance AETNA AETNA Care Teams Agriscience Instructor Relationship Specialty Start Date End Date Devin Saldana MD [address] [place] [address] PCP - General INTERNAL MEDICINE 05/25/20 Freddy Ugalde MD [address] [place] [address] INTERNAL MEDICINE 12/22/21
--- OUTSIDE RECORDS SUMMARY | 2025-02-06 08:26 | XMS_ITS | Encounter Summary ---
Author Organization [facility] Address [address] [place] [address] Care Team Providers Care Mixing Plant Dumper Name Role Phone Devin Saldana MD Primary Care Provider + Encounter Details Date Type Department Care Team (Late st Contact Info) Description 02/04/2025 External Device Data [facility] ABSTRACTION Provider, Abstract NO ADDRESS ON FILE Social History Tobacco Use Types Packs/Day Years [...] as of this encounter Plan of Treatment Upcoming Encounters Date Type Department Care Team (Late st Contact Info) Description 03/13/2025 10:30 AM CDT Office Visit [facility] Oncology and Hematology - [place] [address] [facility] [address] [place] [address] Benigno Martin MD [address] [facility] [address] [place] [address] documented as of this encounter Visit Diagnoses Not on filedocumented in this encounter Care Teams Mixing Plant Dumper Relationship Specialty Start Date End Date Devin Saldana MD [address] [place] [address] PCP - General Internal Medicine 04/11/22 documented as of this encounter
--- OUTSIDE RECORDS SUMMARY | 2025-02-06 08:26 | XMS_ITS | Referral Summary ---
Author Organization [facility] 2 Address [address] [place] [address] Care Team Providers Care Cotton Program Technician Name Role Phone Devin Saldana MD Primary Care Provider [phone] Bia Bryant CNA PCT Unavailable [phone] Encounters Date Type Department Care Team Description 01/14/2025 8:45 AM CDT Infusion [facility] at [address] [phone] Selective deficiency of IgG (HCC) (Primary Dx) 01/14/2025 8:15 AM CDT Lab [facility] at [address] [address] Selective deficiency of IgG (HCC) 12/17/2024 Orders Only [facility] Hematology [facility] [address] [phone] Mahogany Suarez Selective deficiency of IgG (HCC) (Primary Dx) 12/17/2024 11:00 AM CDT Lab [facility] at [address] [id number] Selective deficiency of IgG (HCC) 12/17/2024 11:30 AM CDT Infusion [facility] at [address] [place] [phone] Selective deficiency of IgG (HCC) (Primary Dx) 11/19/2024 Orders Only [facility] Hematology [address] [facility] [address] [place] [address] Mahogany Suarez 11/19/2024 12:00 PM CDT Infusion [facility] at [address] [phone] Selective deficiency of IgG (HCC) [...] on file Legal Sex 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 Gender Identity Not on file Sexual Orientation [...] on file Medical Devices Implanted Type Area [employer] Device Identifier Shelf Expiration Date Model / Serial / Lot [employer] R Bard Ventralight St Sepra Echo Ps 8x6in Monofilament Absorbable Low Latex Free [id number] - [id number] Implanted:Qty: 1 on 02/22/2023 by Robin Ray, at [facility] Mesh N/A: Abdomen [employer] [id number] 06/19/2023 [id number] / / [id number] Procedures Procedure Name Priority Date/Time Associated Diagnosis [...] - 9.90 K/cumm Comment:Testing performed by : [address] [address] Hgb 12.3 11.9 - 15.5 g/dL CHRIS Comment:Testing performed by : [address] [address] Hct 36.1 35.6 - 45.5 % CHRIS Comment:Testing performed by : [address] [address] Plt 236 150 - 400 K/cumm CHRIS Comment:Testing performed by : [address] [address] MPV 9.7 9.1 - 12.3 fL CHRIS Comment:Testing performed by : [address] [address] RBC 3.84(L) 3.90 - 5.20 M/cumm CHRIS Comment:Testing performed by : [address] [address] MCV 94.0 81.3 - 96.4 fL CHRIS Comment:Testing performed by : [address] [address] MCH 32.0 27.1 - 33.3 pg CHRIS Comment:Testing performed by : [address] [address] MCHC 34.1 32.3 - 35.7 g/dL CHRIS Comment:Testing performed by : [address], [address] RDW CV 13.2 11.1 - 14.9 % CHRIS Comment:Testing performed by : [address] [address] RDW SD 45.1 35.7 - 48.1 fL CHRIS Comment:Testing performed by : [address] [address] NRBC abs 0.00 0.00 - 0.01 K/cumm CHRIS Comment:Testing performed by : [address] [address] ANC Prelim 6.34 1.50 - 6.50 K/cumm CHRIS Comment: Interpretive Data The rapid ANC is a preliminary automated count and may vary from the final ANC (Neut Abs) reported in the WBC differential that follows. Current interpretive data was last revised 2024. Testing performed by: [address] [address] Blood 01/14/2025 8:22 AM CDT 01/14/2025 8:24 AM CDT us Bia Bryant NP LAB BLOOD ORDERABLES Final Result [facility] [address] [facility] [place] [address] * (ABNORMAL) Manual Differential (01/14/2025 8:22 AM CDT) Differential Manual Comment:Testing performed by : [address] [address] Cells Counted 100 CHRIS Comment:Testing performed by : [address] [address] Neutrophil abs 6.90(H) 1.50 - 6.50 K/cumm CHRIS Comment:Testing performed by : [address] [address] Lymphocyte abs 2.17 0.80 - 3.30 K/cumm CHRIS Comment:Testing performed by : [address] [address] Monocyte abs 0.38 0.20 - 0.80 K/cumm CHRIS Comment:Testing performed by : [address] [address] Neutrophil pct 73.0 % CHRIS Comment: Interpretive Data Percent cell count reference ranges are not reported, since discordance with absolute values may lead to misinterpretation of CBC data. Current Interpretive Data was last revised on 2017. Testing performed by: [address] [address] Lymphocyte pct 23.0 % CHRIS Comment: Interpretive Data Percent cell count reference ranges are not reported, since discordance with absolute values may lead to misinterpretation of CBC data. Current Interpretive Data was last revised on 2017. Testing performed by: [address] [address] Monocyte pct 4.0 % [facility] Comment: Interpretive Data Percent cell count reference ranges are not reported, since discordance with absolute values may lead to misinterpretation of CBC data. Current Interpretive Data was last revised on 2017. Testing performed by: [address] [address] Blood 01/14/2025 8:22 AM CDT 01/14/2025 8:24 AM CDT Bia Cindy Golec CNA PCT LAB BLOOD ORDERABLES Final Result Performing Organization Address [facility]/ZIP Co de Phone Number [address] [place] [address] * Reticulocyte Count (01/14/2025 8:22 AM CDT) [facility] Retics, absolute 79 20 - 87 K/cumm Comment:Testing performed by : [address] [address] Retics 2.1 0.4 - 2.9 % CHRIS Comment:Testing performed by : [address] [address] Reticulocyte Hgb 36.0 30.5 - 38.0 pg CHRIS Comment:Testing performed by : [address] [address] Blood 01/14/2025 8:22 AM CDT 01/14/2025 8:24 AM CDT Bia Bryant CNA PCT LAB BLOOD ORDERABLES Final Result Performing Organization Address [facility] Co de Phone Number [address] [place] [address] * IgG (01/14/2025 8:22 AM CDT) [facility] Immunoglobulin G 789 700 - 1,600 mg/dL Blood 01/14/2025 8:22 AM CDT 01/14/2025 2:26 PM CDT Bia Bryant CNA PCT LAB BLOOD ORDERABLES Final Result Performing Organization Address [facility] Co de Phone Number [address] [place] [address] * (ABNORMAL) Differential, auto (12/17/2024 11:07 AM CDT) [facility] Neutrophil abs 4.61 1.50 - 6.50 K/cumm Comment:Testing performed by : [address] [address] Imm gran abs 0.58(H) 0.00 - 0.10 K/cumm [facility] Comment:Testing performed by : [address] [address] Lymphocyte abs 1.88 0.80 - 3.30 K/cumm [facility] Comment:Testing performed by : [address] [address] Monocyte abs 0.55 0.20 - 0.80 K/cumm [facility] Comment:Testing performed by : [address], [place]., [address] Eosinophil abs 0.04 0.00 - 0.50 K/cumm [facility] Comment:Testing performed by : [address] [address] Basophil abs 0.01 0.00 - 0.10 K/cumm [facility] Comment:Testing performed by : [address] [address] Neutrophil pct 60.1 % [facility] Comment: Interpretive Data Percent cell count reference ranges are not reported, since discordance with absolute values may lead to misinterpretation of CBC data. Current Interpretive Data was last revised on 2017. Testing performed by: [address] [address] Imm gran pct 7.6 % [facility] Comment: Interpretive Data Percent cell count reference ranges are not reported, since discordance with absolute values may lead to misinterpretation of CBC data. Current Interpretive Data was last revised on 2017. Testing performed by: [address] [address] Lymphocyte pct 24.5 % [facility] Comment: Interpretive Data Percent cell count reference ranges are not reported, since discordance with absolute values may lead to misinterpretation of CBC data. Current Interpretive Data was last revised on 2017. Testing performed by: [address] [address] Monocyte pct 7.2 % [facility] Comment: Interpretive Data Percent cell count reference ranges are not reported, since discordance with absolute values may lead to misinterpretation of CBC data. Current Interpretive Data was last revised on 2017. Testing performed by: [address] [address] Eosinophil pct 0.5 % [facility] Comment: Interpretive Data Percent cell count reference ranges are not reported, since discordance with absolute values may lead to misinterpretation of CBC data. Current Interpretive Data was last revised on 2017. Testing performed by: [address] [address] Basophil pct 0.1 % [facility] Comment: Interpretive Data Percent cell count reference ranges are not reported, since discordance with absolute values may lead to misinterpretation of CBC data. Current Interpretive Data was last revised on 2017. Testing performed by: [address] [address] Blood 12/17/2024 11:0 7 AM CDT 12/17/2024 11:09 AM CDT Bia Bryant NP LAB BLOOD ORDERABLES Final Result [facility] [address] [facility] Department [place] [address] * CBC with auto differential (12/17/2024 11:07 AM CDT) WBC 7.67 3.80 - 9.90 K/cumm Comment:Testing performed by : [address] [address] Hgb 13.2 11.9 - 15.5 g/dL CH[facility]IS [facility] Comment:Testing performed by : [address] [address] Hct 37.3 35.6 - 45.5 % [facility] Comment:Testing performed by : [address] [address] Plt 271 150 - 400 K/cumm [facility] Comment:Testing performed by : [address] [address] MPV 10.0 9.1 - 12.3 fL [facility] Comment:Testing performed by : [address] [address] RBC 4.13 3.90 - 5.20 M/cumm CHRIS Comment:Testing performed by : [address] [address] MCV 90.3 81.3 - 96.4 fL CHRIS Comment:Testing performed by : [address] [address] MCH 32.0 27.1 - 33.3 pg CHRIS Comment:Testing performed by : [address] [address] MCHC 35.4 32.3 - 35.7 g/dL CHRIS Comment:Testing performed by : [address] [address] RDW CV 13.2 11.1 - 14.9 % CHRIS Comment:Testing performed by : [address] [address] RDW SD 43.8 35.7 - 48.1 fL CHRIS Comment:Testing performed by : [address] [address] NRBC abs 0.00 0.00 - 0.01 K/cumm CHRIS Comment:Testing performed by : [address] [address] ANC Prelim 4.61 1.50 - 6.50 K/cumm CHRIS Comment: Interpretive Data The rapid ANC is a preliminary automated count and may vary from the final ANC (Neut Abs) reported in the WBC differential that follows. Current interpretive data was last revised 2024. Testing performed by: [address] [address] Blood 12/17/2024 11:0 7 AM CDT 12/17/2024 11:09 AM CDT us Bia Bryant NP LAB BLOOD ORDERABLES Final Result [facility] [address] [facility] Department [place] [address] * Reticulocyte Count (12/17/2024 11:07 AM CDT) Pathologist [facility] Retics, absolute 77 20 - 87 K/cumm Comment:Testing performed by : [address] [address] Retics 1.9 0.4 - 2.9 % CHRIS ACU[facility] Comment:Testing performed by : [address] [address] Reticulocyte Hgb 36.7 30.5 - 38.0 pg CHRIS ACU[facility] Comment:Testing performed by : [address] [address] Blood 12/17/2024 11:0 7 AM CDT 12/17/2024 11:09 AM CDT Bia Bryant CNA PCT LAB BLOOD ORDERABLES Final Result Performing Organization Address [facility] Co de Phone Number [address] [place] [address] * IgG (12/17/2024 11:07 AM CDT) [facility] Immunoglobulin G 921 700 - 1,600 mg/dL Blood 12/17/2024 11:0 7 AM CDT 12/17/2024 2:29 PM CDT Bia Bryant CNA PCT LAB BLOOD ORDERABLES Final Result Performing Organization Address [facility] Co de Phone Number [address] [place] [address] from Last 3 Months Insurance SPECIAL CONTRACT ARRANGEMENT [facility] Address: [address] [place] [address] [employer] MEDICARE ADVANTAGE [facility] Address: [address] [place] [address] Care Teams Cotton Program Technician Relationship Specialty Start Date End Date Devin Saldana MD [address] [facility] [address] [place] [address] PCP - General 11/14/17 Bia Bryant NP [address] [facility] [address] [place] [address] Nurse Practitioner Nurse Practitioner 10/30/23
== END 2025-02-06 08:23 | disposition home or self-care (01) ==
PROVIDERS: PCP Otolaryngology; Visit Provider Internal Medicine Hematology & Oncology
DX: R91.8 Other nonspecific abnormal finding of lung field (principal); J32.0 Chronic maxillary sinusitis; H66.91 Otitis media, unspecified, right ear; H90.41 Sensorineural hearing loss, unilateral, right ear, with unrestricted hearing on the contralateral side; R91.1 Solitary pulmonary nodule
CPT/HCPCS: 70486; 71260; Q9967

== ENCOUNTER 2025-04-01 12:41 | Outpatient (CLI) | payer MEDICARE, SELFPAY ==
[2025-04-01 13:14] LABS: Anion Gap 11 mmol/L (4-12); Blood Urea Nitrogen 19 mg/dL (7-17); Calcium 8.8 mg/dL (8.4-10.2); Carbon Dioxide 27 mmol/L (22-30); Chloride 97 mmol/L (98-107); Estimated Glomerular Filt Rate > 60; Glucose 159 mg/dL (65-110); Potassium 3.1 mmol/L (3.4-5.0); Sodium 135 mmol/L (137-145)
--- OUTSIDE RECORDS SUMMARY | 2025-04-01 13:21 | XMS_ITS | Clinical Summary ---
Author Organization [facility] Address [address] [place] [address] Care Team Providers Care Sliver Chopper Name Role Phone Devin Saldana MD Primary Care Provider [phone] Bia Bryant TROUBLE OPERATOR Unavailable [phone] Allergies Active Allergy Reactions Criticality Noted Date [...] Encounters Date Type Department Care Team Description 03/11/2025 8:45 AM CDT Infusion [facility] at [address] [place] [address] Selective deficiency of IgG (HCC) (Primary Dx) 03/11/2025 8:15 AM CDT Lab [facility] [place] at [address] [address] Selective deficiency of IgG (HCC) 02/11/2025 8:45 AM CDT Infusion [facility] at [address] [place] [address] Selective deficiency of IgG (HCC) (Primary Dx) 02/11/2025 8:15 AM CDT Lab [facility] at [address] [address] Selective deficiency of IgG (HCC) 01/14/2025 8:45 AM CDT Infusion [facility] at [address] [address] Selective deficiency of IgG (HCC) (Primary Dx) 01/14/2025 8:15 AM CDT Lab [facility] at [address] [address] Selective deficiency of IgG (HCC) from Last 3 Months Immunizations Immunization Administration [...] polyp Hyperlipidemia Hypertension Asthma COPD (chronic obstructive pulmonary disease) Chronic bronchitis (HCC) Arthritis Depression Immunoglobulin deficiency, acquired Breast cancer (HCC) PONV (postoperative nausea and vomiting) Sleep apnea uses cpap nightl y 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 Fibromyalgia Bronchiectasis 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 Motion sickness Type 2 diabetes mellitus Obesity Family History Medical History Relation Name [...] on file 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 Gender Identity Not on file Sexual Orientation Not on file Obstetrics History Last Filed Vital Signs Vital Sign Reading Time Taken Comments Blood Pressure 123/71 03/11/2025 10:26 AM CDT Pulse 88 03/11/2025 10:26 AM CDT Temperature 36.7 C (98 F) 03/11/2025 10:26 AM CDT Respiratory Rate 18 03/11/2025 10:26 AM CDT Oxygen Saturation 95% 03/11/2025 10:26 AM CDT Inhaled Oxygen Concentration - - Weight 84.9 kg (187 lb 2.7 oz) 03/11/2025 8:58 A M CDT Height 153.5 cm (5' 0.43) 02/11/2025 8:47 AM CD T Body Mass Index 36.03 02/11/2025 8:47 AM CDT Plan of Treatment Health Maintenance Due Date Last Done Comments Breast Cancer Screening-Mammogram 1950 Colon Cancer Screening-Colonoscopy 1950 Depression Screening 1950 Hepatitis C Screening 1950 DTaP/Tdap/Td Vaccine (1 - Tdap) 10/30/1962 Hepatitis B Screening 10/30/1969 Well Visit 65+ 10/30/2016 Pneumococcal vaccine 65+ (3 of 3 - PCV) 04/22/2018 04/22/2017, 04/22/2017, 07/01/2012 Fall Risk Assessment 02/23/2024 02/22/2023 Covid-19 Vaccine (2023-2 5 season) 2024 04/07/2024, 07/18/2023, 05/11/2021, Additional history exists Influenza Vaccine (#1) 2025 , 05/11/2021, 05/11/2020, Additional history exists Osteoporosis Screening-Bone Density Scan 06/12/2026 06/12/2024 Zoster Vaccine Completed 04/10/2019, 12/31/2018 Medical Devices Implanted Type Area Customer Service Manager Device Identifier Shelf Expiration Date Model / Serial / Lot [employer]/C R Bard Ventralight St Sepra Echo Ps 8x6in Monofilament Absorbable Low Latex Free [id number] - [id number] Implanted:Qty: 1 on 02/22/2023 by Robin Ray, at [facility] Mesh N/A: Abdomen [employer] [id number] 06/19/2023 [id number] / / [id number] Procedures Procedure Name Priority Date/Time Associated Diagnosis Comments DIFFERENTIAL AUTO Routine 03/11/2025 8:2 7 AM CDT Selective deficiency of IgG (HCC) RETICULOCYTES Routine 03/11/2025 8:27 AM CDT Selective deficiency of IgG (HCC) IGG Routine 03/11/2025 8:27 AM CDT Selective deficiency of IgG (HCC) CBC WITH AUTO DIFFERENTIAL Routine 03/11/2025 8:27 AM CDT Selective deficiency of IgG (HCC) DIFFERENTIAL AUTO Routine 02/11/2025 8:4 0 AM CDT Selective deficiency of IgG (HCC) RETICULOCYTES Routine 02/11/2025 8:40 AM CDT Selective deficiency of IgG (HCC) IGG Routine 02/11/2025 8:40 AM CDT Selective deficiency of IgG (HCC) CBC WITH AUTO DIFFERENTIAL Routine 02/11/2025 8:40 AM CDT Selective deficiency of IgG (HCC) MANUAL DIFFERENTIAL Routine 01/14/2025 8 :22 AM CDT Selective deficiency of IgG (HCC) RETICULOCYTES Routine 01/14/2025 8:22 AM CDT Selective deficiency of IgG (HCC) IGG Routine 01/14/2025 8:22 AM CDT Selective deficiency of IgG (HCC) CBC WITH AUTO DIFFERENTIAL Routine 01/14/2025 8:22 AM CDT Selective deficiency of IgG (HCC) from Last 3 Months Results * (ABNORMAL) Differential, auto (03/11/2025 8:27 AM CDT) Neutrophil abs 4.09 1.50 - 6.50 K/cumm Comment:Testing performed by : [address] [address] Imm gran abs 0.49(H) 0.00 - 0.10 K/cumm [facility] Comment:Testing performed by : [address] [address] Lymphocyte abs 2.02 0.80 - 3.30 K/cumm CH[facility]IS Comment:Testing performed by : [address] [address] Monocyte abs 0.52 0.20 - 0.80 K/cumm [facility] Comment:Testing performed by : [address] [address] Eosinophil abs 0.05 0.00 - 0.50 K/cumm [facility] Comment:Testing performed by : [address], [place]., [address] Basophil abs 0.02 0.00 - 0.10 K/cumm [facility] Comment:Testing performed by : [address] [address] Neutrophil pct 56.9 % [facility] Comment: Interpretive Data Percent cell count reference ranges are not reported, since discordance with absolute values may lead to misinterpretation of CBC data. Current Interpretive Data was last revised on 2017. Testing performed by: [address] [address] Imm gran pct 6.8 % [facility] Comment: Interpretive Data Percent cell count reference ranges are not reported, since discordance with absolute values may lead to misinterpretation of CBC data. Current Interpretive Data was last revised on 2017. Testing performed by: [address] [address] Lymphocyte pct 28.1 % [facility] Comment: Interpretive Data Percent cell count reference ranges are not reported, since discordance with absolute values may lead to misinterpretation of CBC data. Current Interpretive Data was last revised on 2017. Testing performed by: [address] [address] Monocyte pct 7.2 % [facility] Comment: Interpretive Data Percent cell count reference ranges are not reported, since discordance with absolute values may lead to misinterpretation of CBC data. Current Interpretive Data was last revised on 2017. Testing performed by: [address] [address] Eosinophil pct 0.7 % [facility] Comment: Interpretive Data Percent cell count reference ranges are not reported, since discordance with absolute values may lead to misinterpretation of CBC data. Current Interpretive Data was last revised on 2017. Testing performed by: [address] [address] Basophil pct 0.3 % [facility] Comment: Interpretive Data Percent cell count reference ranges are not reported, since discordance with absolute values may lead to misinterpretation of CBC data. Current Interpretive Data was last revised on 2017. Testing performed by: [address] [address] Blood 03/11/2025 8:27 AM CDT 03/11/2025 8:32 AM CDT us Bia Bryant TROUBLE OPERATOR LAB BLOOD ORDERABLES Final Result [facility] [address] [facility] Department [place] [address] * CBC with auto differential (03/11/2025 8:27 AM CDT) WBC 7.19 3.80 - 9.90 K/cumm Comment:Testing performed by : [address] [address] Hgb 12.8 11.9 - 15.5 g/dL [facility]IS Comment:Testing performed by : [address] [address] Hct 36.9 35.6 - 45.5 % [facility] Comment:Testing performed by : [address] [address] Plt 252 150 - 400 K/cumm [facility] Comment:Testing performed by : [address] [address] MPV 10.0 9.1 - 12.3 fL [facility] Comment:Testing performed by : [address] [address] RBC 3.99 3.90 - 5.20 M/cumm [facility] Comment:Testing performed by : [address] [address] MCV 92.5 81.3 - 96.4 fL [facility] Comment:Testing performed by : [address] [address] MCH 32.1 27.1 - 33.3 pg [facility]IS Comment:Testing performed by : [address] [address] MCHC 34.7 32.3 - 35.7 g/dL [facility] Comment:Testing performed by : [address] [address] RDW CV 13.0 11.1 - 14.9 % [facility] Comment:Testing performed by : [address] [address] RDW SD 43.8 35.7 - 48.1 fL [facility] Comment:Testing performed by : [address] [address] NRBC abs 0.00 0.00 - 0.01 K/cumm [facility] Comment:Testing performed by : [address] [address] ANC Prelim 4.09 1.50 - 6.50 K/cumm [facility] Comment: Interpretive Data The rapid ANC is a preliminary automated count and may vary from the final ANC (Neut Abs) reported in the WBC differential that follows. Current interpretive data was last revised 2024. Testing performed by: [address] [address] Blood 03/11/2025 8:27 AM CDT 03/11/2025 8:32 AM CDT Bia Bryant TROUBLE OPERATOR LAB BLOOD ORDERABLES Final Result [facility] [address] [facility] Department [place] [address] * Reticulocyte Count (03/11/2025 8:27 AM CDT) Retics, absolute 83 20 - 87 K/cumm Comment:Testing performed by : [address] [address] Retics 2.1 0.4 - 2.9 % [facility] Comment:Testing performed by : [address] [address] Reticulocyte Hgb 36.7 30.5 - 38.0 pg [facility] Comment:Testing performed by : [address] [address] Blood 03/11/2025 8:27 AM CDT 03/11/2025 8:32 AM CDT Bia Bryant TROUBLE OPERATOR LAB BLOOD ORDERABLES Final Result Performing Organization Address [facility] de Phone Number [address] [place] [address] * IgG (03/11/2025 8:27 AM CDT) Pathologist [facility] Immunoglobulin G 801 700 - 1,600 mg/dL Blood 03/11/2025 8:27 AM CDT 03/11/2025 6:57 PM CDT Bia Bryant LAB BLOOD ORDERABLES Final Result Performing Organization Address [facility] de Phone Number [address] [address] * (ABNORMAL) Differential, auto (02/11/2025 8:40 AM CDT) [facility] Neutrophil abs 3.53 1.50 - 6.50 K/cumm Comment:Testing performed by : [address] [address] Imm gran abs 0.45(H) 0.00 - 0.10 K/cumm [facility] Comment:Testing performed by : [address] [address] Lymphocyte abs 1.44 0.80 - 3.30 K/cumm [facility] Comment:Testing performed by : [address] [address] Monocyte abs 0.36 0.20 - 0.80 K/cumm [facility] Comment:Testing performed by : [address] [address] Eosinophil abs 0.03 0.00 - 0.50 K/cumm [facility] Comment:Testing performed by : [address] [address] Basophil abs 0.01 0.00 - 0.10 K/cumm [facility] Comment:Testing performed by : [address] [address] Neutrophil pct 60.7 % [facility] Comment: Interpretive Data Percent cell count reference ranges are not reported, since discordance with absolute values may lead to misinterpretation of CBC data. Current Interpretive Data was last revised on 2017. Testing performed by: [address] [address] Imm gran pct 7.7 % [facility] Comment: Interpretive Data Percent cell count reference ranges are not reported, since discordance with absolute values may lead to misinterpretation of CBC data. Current Interpretive Data was last revised on 2017. Testing performed by: [address] [address] Lymphocyte pct 24.7 % [facility] Comment: Interpretive Data Percent cell count reference ranges are not reported, since discordance with absolute values may lead to misinterpretation of CBC data. Current Interpretive Data was last revised on 2017. Testing performed by: [address] [address] Monocyte pct 6.2 % [facility] Comment: Interpretive Data Percent cell count reference ranges are not reported, since discordance with absolute values may lead to misinterpretation of CBC data. Current Interpretive Data was last revised on 2017. Testing performed by: [address] [address] Eosinophil pct 0.5 % [facility] Comment: Interpretive Data Percent cell count reference ranges are not reported, since discordance with absolute values may lead to misinterpretation of CBC data. Current Interpretive Data was last revised on 2017. Testing performed by: [address] [address] Basophil pct 0.2 % [facility] Comment: Interpretive Data Percent cell count reference ranges are not reported, since discordance with absolute values may lead to misinterpretation of CBC data. Current Interpretive Data was last revised on 2017. Testing performed by: [address] [address] Blood 02/11/2025 8:40 AM CDT 02/11/2025 8:48 AM CDT Bia Bryant TROUBLE OPERATOR LAB BLOOD ORDERABLES Final Result [facility] [address] [facility] Department [place] [address] * CBC with auto differential (02/11/2025 8:40 AM CDT) WBC 5.82 3.80 - 9.90 K/cumm Comment:Testing performed by : [address] [address] Hgb 12.9 11.9 - 15.5 g/dL [facility] Comment:Testing performed by : [address] [address] Hct 36.9 35.6 - 45.5 % [facility] Comment:Testing performed by : [address] [address] Plt 235 150 - 400 K/cumm [facility] Comment:Testing performed by : [address] [address] MPV 9.9 9.1 - 12.3 fL [facility] Comment:Testing performed by : [address] [address] RBC 4.03 3.90 - 5.20 M/cumm [facility] Comment:Testing performed by : [address] [address] MCV 91.6 81.3 - 96.4 fL [facility] Comment:Testing performed by : [address] [address] MCH 32.0 27.1 - 33.3 pg [facility] Comment:Testing performed by : [address] [address] MCHC 35.0 32.3 - 35.7 g/dL [facility] Comment:Testing performed by : [address] [address] RDW CV 12.9 11.1 - 14.9 % [facility] Comment:Testing performed by : [address] [address] RDW SD 42.8 35.7 - 48.1 fL [facility] Comment:Testing performed by : [address] [address] NRBC abs 0.00 0.00 - 0.01 K/cumm [facility] Comment:Testing performed by : [address] [address] ANC Prelim 3.53 1.50 - 6.50 K/cumm [facility] Comment: Interpretive Data The rapid ANC is a preliminary automated count and may vary from the final ANC (Neut Abs) reported in the WBC differential that follows. Current interpretive data was last revised 2024. Testing performed by: [address] [address] Blood 02/11/2025 8:40 AM CDT 02/11/2025 8:48 AM CDT Bia Bryant TROUBLE OPERATOR LAB BLOOD ORDERABLES Final Result [facility] [address] [facility] Department of Laboratories [place], [place] [id number] * (ABNORMAL) Reticulocyte Count (02/11/2025 8:40 AM CDT) Retics, absolute 88(H) 20 - 87 K/cumm Comment:Testing performed by : [address] [address] Retics 2.2 0.4 - 2.9 % [facility] Comment:Testing performed by : [address] [address] Reticulocyte Hgb 36.8 30.5 - 38.0 pg [facility] Comment:Testing performed by : [address] [address] Blood 02/11/2025 8:40 AM CDT 02/11/2025 8:48 AM CDT Bia White Annette TROUBLE OPERATOR LAB BLOOD ORDERABLES Final Result Performing Organization Address [facility] Co de Phone Number [address] [place] [address] * IgG (02/11/2025 8:40 AM CDT) Pathologist [facility] Immunoglobulin G 829 700 - 1,600 mg/dL Blood 02/11/2025 8:40 AM CDT 02/11/2025 4:33 PM CDT Bia Cindy Annette LAB BLOOD ORDERABLES Final Result Performing Organization Address [facility] de Phone Number [place] [place] [address] * (ABNORMAL) CBC with auto differential (01/14/2025 8:22 AM CDT) [facility] WBC 9.45 3.80 - 9.90 K/cumm Comment:Testing performed by : [address], [address] Hgb 12.3 11.9 - 15.5 g/dL [facility] Comment:Testing performed by : [address] [address] Hct 36.1 35.6 - 45.5 % [facility] Comment:Testing performed by : [address] [address] Plt 236 150 - 400 K/cumm [facility] Comment:Testing performed by : [address] [address] MPV 9.7 9.1 - 12.3 fL [facility] Comment:Testing performed by : [address] [address] RBC 3.84(L) 3.90 - 5.20 M/cumm [facility] Comment:Testing performed by : [address] [address] MCV 94.0 81.3 - 96.4 fL [facility] Comment:Testing performed by : [address] [address] MCH 32.0 27.1 - 33.3 pg [facility] Comment:Testing performed by : [address] [address] MCHC 34.1 32.3 - 35.7 g/dL [facility] Comment:Testing performed by : [address] [address] RDW CV 13.2 11.1 - 14.9 % [facility] Comment:Testing performed by : [address] [address] RDW SD 45.1 35.7 - 48.1 fL [facility] Comment:Testing performed by : [address] [address] NRBC abs 0.00 0.00 - 0.01 K/cumm [facility] Comment:Testing performed by : [address] [address] ANC Prelim 6.34 1.50 - 6.50 K/cumm [facility] Comment: Interpretive Data The rapid ANC is a preliminary automated count and may vary from the final ANC (Neut Abs) reported in the WBC differential that follows. Current interpretive data was last revised 2024. Testing performed by: [address] [address] Blood 01/14/2025 8:22 AM CDT 01/14/2025 8:24 AM CDT us Bia Bryant NP LAB BLOOD ORDERABLES Final Result [facility] [address] [facility] Department of Laboratories [place], [place] [id number] * (ABNORMAL) Manual Differential (01/14/2025 8:22 AM CDT) Differential Manual Comment:Testing performed by : [address] [address] Cells Counted 100 [facility]IS Comment:Testing performed by : [address] [address] Neutrophil abs 6.90(H) 1.50 - 6.50 K/cumm [facility] Comment:Testing performed by : [address] [address] Lymphocyte abs 2.17 0.80 - 3.30 K/cumm [facility] Comment:Testing performed by : [address] [address] Monocyte abs 0.38 0.20 - 0.80 K/cumm [facility] Comment:Testing performed by : [address] [address] Neutrophil pct 73.0 % [facility] Comment: Interpretive Data Percent cell count reference ranges are not reported, since discordance with absolute values may lead to misinterpretation of CBC data. Current Interpretive Data was last revised on 2017. Testing performed by: [address] [address] Lymphocyte pct 23.0 % [facility] Comment: Interpretive Data Percent cell count reference ranges are not reported, since discordance with absolute values may lead to misinterpretation of CBC data. Current Interpretive Data was last revised on 2017. Testing performed by: [address] [address] Monocyte pct 4.0 % [facility] Comment: Interpretive Data Percent cell count reference ranges are not reported, since discordance with absolute values may lead to misinterpretation of CBC data. Current Interpretive Data was last revised on 2017. Testing performed by: [address] [address] Blood 01/14/2025 8:22 AM CDT 01/14/2025 8:24 AM CDT us Bia Bryant NP LAB BLOOD ORDERABLES Final Result [facility] [address] [facility] Department [place] [address] * Reticulocyte Count (01/14/2025 8:22 AM CDT) [facility] Retics, absolute 79 20 - 87 K/cumm Comment:Testing performed by : [address] [address] Retics 2.1 0.4 - 2.9 % [facility] Comment:Testing performed by : [address] [address] Reticulocyte Hgb 36.0 30.5 - 38.0 pg [facility] Comment:Testing performed by : [address] [address] Blood 01/14/2025 8:22 AM CDT 01/14/2025 8:24 AM CDT Bia Bryant TROUBLE OPERATOR LAB BLOOD ORDERABLES Final Result Performing Organization Address [facility] de Phone Number [address] [place] [place] [address] * IgG (01/14/2025 8:22 AM CDT) [facility] Immunoglobulin G 789 700 - 1,600 mg/dL Blood 01/14/2025 8:22 AM CDT 01/14/2025 2:26 PM CDT Bia Bryant TROUBLE OPERATOR LAB BLOOD ORDERABLES Final Result Performing Organization Address [facility] de Phone Number [address] [address] from Last 3 Months Insurance SPECIAL CONTRACT ARRANGEMENT [facility] MEDICARE UHC MEDICARE ADVANTAGE [facility] MEDIC[facility] Address: [address] [address] [place] [address] [facility] MEDICARE Care Teams Sliver Chopper Relationship Specialty Start Date End Date Devin Saldana MD [address] [place] [address] PCP - General 11/14/17 Bia Bryant NP [address] [place] [address] Nurse Practitioner Nurse Practitioner 10/30/23
--- OUTSIDE RECORDS SUMMARY | 2025-04-01 13:21 | XMS_ITS | Encounter Summary ---
Author Organization [facility] Address [address] [place] [address] Care Team Providers Care Loan Services Professional Name Role Phone Devin Saldana MD Primary Care Provider [phone] Encounter Details Date Type Department Care Team (Late st Contact Info) Description 02/14/2023 Lab Requisition [facility] - DermPath Lab [address] [facility] [place] [id number] Carmen Florez MD [address] [facility] [address] [place] [address] Social History Tobacco Use Types Packs/Day Years Used Date Smoking Tobacco: Never Smokeless Tobacco: Never Alcohol Use Standard Drinks/Week Comments Not Currently 1 (1 standard drink = 0.6 oz pur e alcohol) Comments Unknown Sex and Gender Information Value Date Recorded Sex Assigned at Not on file 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 Gender Identity Not on file Sexual Orientation Not on file documented as of this encounter Plan of Treatment Not on file documented as of this encounter Procedures Procedure Name Priority Date/Time Associated Diagnosis Comments DERMATOPATHOLOGY Routine 02/14/2023 9:29 AM CDT documented in this encounter Results * DERMATOPATHOLOGY (02/14/2023 9:29 AM CDT) Case Report Dermatopathology Report Case: [id number] Authorizing Provider: Carmen Florez MD Collected: 02/14/2023 09:29 AM Ordering Location: [facility] DermPath Lab Received: 02/14/2023 04:32 PM Pathologist: [...] characteristic determined by the Dermatopathology Laboratory at [facility], directed by Dr. Radha Galvan. These tests need not be, and therefore are not, approved by the [place] Food and Drug Administration. The tests are used for clinical purposes. Billing Codes Specimen Charges Stain Charges 61340 1 3 2:20 PM CDT DERMATOPATHOLOGY LABORATORY Embedded Images 3 2:20 PM CDT DERMATOPATHOLOGY LABORATORY Pathology/Cytolo gy TISSUE SPECIMEN FROM SKIN / Unknown 02/14/2023 9:29 AM CDT 02/14/2023 4:32 PM CDT Carmen Florez MD LAB - PATHOLOGY/CYTOLOGY ORD ERABLES Final Result DERMATOPATHOLOGY LABORATORY [facility] - Department of Dermatology [facility] Medicine [address] [place] [address], [address] [phone] documented in this encounter Visit Diagnoses Not on filedocumented in this encounter Care Teams Loan Services Professional Relationship Specialty Start Date End Date Devin Saldana MD [address] [place] [address] PCP - General 11/02/09 documented as of this encounter
--- OUTSIDE RECORDS SUMMARY | 2025-04-01 13:21 | XMS_ITS | Encounter Summary ---
Author Organization [facility] Address [address] [place] [address] Care Team Providers Care Shrimp Packer Name Role Phone Devin Saldana MD Primary Care Provider [phone] Encounter Details Date Type Department Care Team (Late st Contact Info) Description 03/19/2019 Lab Requisition [facility] [address] [facility], [place] [address] Jeanie Anthony MD [address] [facility] 3 [place] [address] Social History Tobacco Use Types Packs/Day Years Used Date Smoking Tobacco: Never Alcohol Use Standard Drinks/Week Comments Yes 0 (1 standard drink = 0.6 oz pur e alcohol) Comments Unknown Sex and Gender Information Value Date Recorded Sex Assigned at Not on file Legal Sex Female 6:24 PM FLASK CLEANER Gender Identity Not on file Sexual Orientation Not on file documented as of this encounter Plan of Treatment Not on file documented as of this encounter Procedures Procedure Name Priority Date/Time Associated Diagnosis Comments DERMATOPATH TECHNICAL REPORT Routine 03/18/2019 12:00 AM CDT documented in this encounter Results * DERMATOPATH TECHNICAL REPORT (03/18/2019 12:00 AM CDT) Case Report Dermatopathology Report Case: [id number] Authorizing Provider: Jeanie Anthony MD Collected: 03/18/2019 12:00 AM Ordering Location: [facility] Received: 03/19/2019 07:45 AM Pathologist: aKl Galvan MD Specimen: Skin, left corner of mouth 2:39 PM CDT DERMATOPATHOLOGY LABORATORY Addendum 1 At the request of the diagnosing physician, the technical component for Gram test and HSV was performed by [facility] Dermatopathology Laboratory. 2:39 PM CDT DERMATOPATHOLOGY LABORATORY Addendum electronically signed by Kal Galvan MD on 03/22/2019 at 1439 CDT Clinical History Folliculitis vs BCC vs other. Irrit. 2:39 PM CDT DERMATOPATHOLOGY LABORATORY Gross Description Specimen A: Received is one formalin filled container labeled with the patient's name and designated left corner of mouth. The specimen consists of a punch measuring [id number]. Jar 0. [facility] Dermatopathology Laboratory performed the technical component only. [...] characteristic determined by the Dermatopathology Laboratory at [facility], directed by Dr. Radha Galvan. These tests need not be, and therefore are not, approved by the [place] Food and Drug Administration. The tests are used for clinical purposes. 2:39 PM CDT DERMATOPATHOLOGY LABORATORY at 1329 CDT Pathology/Cytolog y TISSUE SPECIMEN FROM SKIN / Unknown 03/18/2019 03/19/2019 7:45 AM CDT Jaenie Anthony MD LAB - PATHOLOGY/CYTOLOGY OR DERABLES Edited Result - Final DERMATOPATHOLOGY LABORATORY [facility] - Department of Dermatology [address] [place] [address], 5th [place] [address], [facility] [phone] documented in this encounter Visit Diagnoses Not on filedocumented in this encounter Care Teams Shrimp Packer Relationship Specialty Start Date End Date Devin aSldana MD [address] [place] [address] PCP - General 11/02/09 documented as of this encounter
--- OUTSIDE RECORDS SUMMARY | 2025-04-01 13:21 | XMS_ITS | Encounter Summary ---
Author Organization [facility] Address [address] [facility] [place] [address] Care Team Providers Care Ostomy Nurse Name Role Phone Devin Saldana MD Primary Care Provider [phone] Encounter Details Date Type Department Care Team (Late st Contact Info) Description 04/08/2024 Lab Requisition [facility] - [facility] Lab [address] [facility], [place] [address] Jeanie Anthony MD [address] [facility] 3 [place] [address] Social History Tobacco Use Types Packs/Day Years Used Date Smoking Tobacco: Never Smokeless Tobacco: Never Alcohol Use Standard Drinks/Week Comments Not Currently 1 (1 standard drink = 0.6 oz pur e alcohol) Comments Unknown Sex and Gender Information Value Date Recorded Sex Assigned at Not on file Legal Sex Female 6:24 PM EMPLOYEE 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 Gender Identity Not on file Sexual Orientation Not on file documented as of this encounter Plan of Treatment Not on file documented as of this encounter Procedures Procedure Name Priority Date/Time Associated Diagnosis Comments DERMATOPATHOLOGY Routine 04/08/2024 10:0 0 AM CDT documented in this encounter Results * DERMATOPATHOLOGY (04/08/2024 10:00 AM CDT) Case Report Dermatopathology Report Case: [id number] Authorizing Provider: Jeanie Anthony MD Collected: 04/08/2024 10:00 AM Ordering Location: [facility] - Received: 04/08/2024 03:39 [...] characteristic determined by the Dermatopathology Laboratory at [facility], directed by Dr. Radha Galvan. These tests need not be, and therefore are not, approved by the [place] Food and Drug Administration. The tests are used for clinical purposes. Billing Codes Specimen Charges Stain Charges 57122 1 4 2:04 PM CDT DERMATOPATHOLOGY LABORATORY Embedded Images 4 2:04 PM CDT DERMATOPATHOLOGY LABORATORY Pathology/Cytolo gy TISSUE SPECIMEN FROM SKIN / Unknown 04/08/2024 10:00 AM CDT 04/08/2024 3:39 PM CDT us Jeanie Anthony MD LAB - PATHOLOGY/CYTOLOGY OR DERABLES Final Result DERMATOPATHOLOGY LABORATORY [facility] - Department of Dermatology [facility] [address] [place] [address], [address] [phone] documented in this encounter Visit Diagnoses Not on filedocumented in this encounter Care Teams Ostomy Nurse Relationship Specialty Start Date End Date Devin Saldana MD [address] [place] [address] PCP - General 11/02/09 documented as of this encounter
--- OUTSIDE RECORDS SUMMARY | 2025-04-01 13:21 | XMS_ITS | Clinical Summary ---
Author Organization [facility] [employer] Address [address] [place] [address] Care Team Providers Care Culinary Director Name Role Phone Devin Saldana MD Primary Care Provider [phone] Source Comments [facility] [employer],non-owned Affiliates and Associated Physician Practices is amultiple site organization consisting of ambulatory clinics and hospital sitesin [place], [place], [place] and [place]. This disclosure is being madepursuant to the Care Everywhere program and may not contain all information available regarding this patient. Last updated 18.[facility] [employer] Allergies Active Allergy Reactions Criticality Noted Date [...] fluticasone propionate (FLONASE) 50 MCG/ACT nasal spray [place] 1 (one) spray into each nostril once [...] 2 times daily 1 Active nystatin (MYCOSTATIN) 851420 UNIT/ML suspension Take 1 mL by mouth [...] fluticasone propionate (Flonase) 50 MCG/ACT nasal spray [place] 2 (two) sprays into the nose once [...] Active azelastine (Astelin) 0.1 % nasal spray [place] 1 (one) spray into each nostril 2 [...] on file Legal Sex Female 6:24 PM NURSE RECEPTIONIST Gender Identity Not on file Sexual Orientation [...] 3 - PCV) 04/22/2018 04/22/2017, 04/22/2017, 07/01/2012 SCREENING FOR DIABETES 05/12/2021 DEPRESSION SCREENING 07/23/2024 MEDICARE AWV CALENDAR YEAR 2024 COVID-19 VACCINE ( season) 2025 04/11/2022, 05/11/2021, 09/28/2020, Additional history exists INFLUENZA VACCINE (#1) 2025 , 05/11/2021, 05/11/2020, Additional history exists ZOSTER VACCINE Completed 04/10/2019, [...] age to complete this topic Insurance AETNA AETNA MEDICARE ADV Care Teams Culinary Director Relationship Specialty [place] [address] [place] [address] PCP - General 11/02/09
--- OUTSIDE RECORDS SUMMARY | 2025-04-01 13:21 | XMS_ITS | Clinical Summary ---
Author Organization [facility] Address [address], [facility] [address] [place] [address] Phone Care Team Providers Care Store Keeper Name Role Phone Devin Saldana MD Primary Care Provider [phone] Social History Tobacco Use Types Packs/Day Years Used Date Smoking Tobacco: Never Assessed Comments Unknown Sex and Gender Information Value Date Recorded Sex Assigned at Not on file Legal Sex Female 7:29 PM CDT Gender Identity Not on file Sexual Orientation Not on file Plan of Treatment Health Maintenance Due Date Last Done Comments Hepatitis C Virus (HCV) Screening 1950 TdaP Immunization 1950 Cologuard 10/30/1996 Immunochemical Fecal Occult Blood 10/30/1996 Pneumococcal Immunization (5 0+ years) (1 of 1 - PCV) 10/30/2001 Zoster Immunization (1 of 2) 10/30/2001 SARS-COV-2 Immunization ( - 2023- season) 2024 Colonoscopy 01/14/2025 01/15/2020 Colorectal Cancer Screening 01/14/2025 Influenza Immunization (#1) 2025 Respiratory Syncytial Virus (RSV) Immunization (Adult) (1 - 1-dose 75+ series) 10/30/2026 Hepatitis B Immunization Aged Out No longer eligible based on patient's age to complete this topic Human Papillomavirus (HPV) Immunization Aged Out No longer eligible b ased [...] Relevant to Health Maintenance Insurance [facility]IC[facility] Care Teams Store Keeper Relationship Specialty Start Date End Date Devin Saldana MD PCP - General Internal Medicine 08/25/19
--- OUTSIDE RECORDS SUMMARY | 2025-04-01 13:21 | XMS_ITS | Clinical Summary ---
Author Organization [facility] Address [address] [facility] [address] Care Team Providers Care Forestry Hunter Name Role Phone Devin Saldana MD Primary Care Provider + Allergies Active Allergy Reactions Criticality Noted Date Comments Dheeraj Inhibitors Rash,Unknown Medium 09/04/2012 Cephalexin Rash,Hives,Itching,Swelling,Unknown High 09/04/2012 Ciprofloxacin Angioedema,Unknown High 09/04/2012 Codeine Itching,Rash Low 05/12/2021 Metronidazole Rash,Angioedema High 01/29/2018 Medications albuterol sulfate 90 mcg/Actuation inhaler Take 2 Puffs by inhalation every 4 hours as needed. 09/25/19 21 Active aspirin (ECOTRIN EC) 81 mg Tablet, Delayed Release (E.C.) Take 81 mg by mouth daily. Active celecoxib (CeleBREX) 200 mg capsule TAKE 1 CAPSULE BY MOUTH TWICE DAILY NEEDED 02/27/20 22 Active cholecalciferol , Vitamin D3, 50 mcg (2,000 unit) Tablet Take 1 Capsule by mouth daily. Active fluticasone propionate (FLONASE) 50 mcg/spray [place], Suspension nasal inhaler Administer 1 [place] in each nostril daily. Active hydroCHLOROthia zide (MICROZIDE) 12.5 mg capsule Take 12.5 mg by mouth daily. 09/06/19 21 Active LORazepam (ATIVAN) 1 mg tablet TAKE 1 TABLET BY MOUTH 2 TO 3 TIMES DAILY NEEDED FOR ANXIETY 03/27/20 22 Active metFORMIN (GLUCOPHAGE) 1,000 mg tablet Take 1,000 mg by mouth 2 times daily. 02/13/20 22 Active sertraline (ZOLOFT) 100 mg tablet Take 100 mg by mouth daily. 01/29/20 Active telmisartan (MICARDIS) 80 mg Tablet Take 80 mg by mouth daily. 03/21/20 Active verapamiL (VERELAN) 180 mg Sustained Release 24 hour capsule Take 180 mg by mouth. Active zolpidem (AMBIEN) 10 mg tablet Take 10 mg by mouth 1 time daily as needed. 02/08/20 Active pantoprazole (PROTONIX) 40 mg Tablet, Delayed Release (E.C.) Take 40 mg by mouth 2 times daily. 05/17/20 Active predniSONE (DELTASONE) 2.5 mg tablet Take 5 mg by mouth daily with breakfast. 05/19/20 Active fluticasone propion-[place] roL (ADVAIR DISKUS,WIXELA INHUB) 500-50 mcg/dose disk inhaler INHALE 1 DOSE BY MOUTH TWICE DAILY 05/24/20 Active ibuprofen (MOTRIN) 800 mg tablet Take [...] or Pain, Mild / Temperature. 10 Tablet 07/21/20 Active docusate sodium (COLACE) 100 mg capsule Take 1 Capsule (100 mg) by mouth 2 times daily. 10 Capsule 07/21/20 Active gabapentin (NEURONTIN) 100 mg capsule Take 2 Capsules (200 mg) by mouth 3 times daily. 180 Capsule 07/22/2022 12:42 PM PLANT SUPERVISOR 07/21/20 Active Additional Information Patient taking differently: 300 mgOral THREE TIMES DAILY, Reported on 08/14/2022 traMADoL (ULTRAM) 50 mg tabletIndicatio ns:S/P thoracotomy Take 1 Tablet (50 mg) by mouth every 6 hours as needed for Pain. 30 Tablet 07/22/2022 12:42 PM PLANT SUPERVISOR 07/22/20 Active Additional Information Patient taking differently: 100 mgOralTWO TIMES DAILY, Reported on 08/14/2022 oxyCODONE (ROXICODONE) 5 mg tabletIndicatio ns:S/P thoracotomy Take 1 Tablet (5 mg) by mouth every 4 hours as needed for Pain. 42 Tablet 07/22/2022 12:42 PM PLANT SUPERVISOR 07/22/20 Active rosuvastatin (CRESTOR) 10 mg tablet Take 10 mg by mouth daily. 12/24/19 24 Active modafiniL (PROVIGIL) 100 mg Tablet Take 100 mg by mouth daily. Active EnbreL SureClick 50 mg/mL (1 mL) Pen Injector Inject 50 mg by subcutaneous injection every 7 days. 06/10/20 24 Active Mounjaro 2.5 mg/0.5 mL Pen Injector Inject 2.5 mg by subcutaneous injection every 7 days. 10/24/19 25 Active SITagliptin-met FORMIN (JANUMET) 50-1,000 mg tablet Take 1 Tablet by mouth daily. Active tamoxifen (NOLVADEX) 20 mg tabletIndicatio ns:Malignant neoplasm of upper-outer quadrant of right breast in female, estrogen receptor positive (CMS/HCC) Take 1 Tablet (20 mg) by mouth daily. 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 Encounters Date Type Department Care Team Description 03/13/2025 10:30 AM CDT Office Visit [facility] Oncology and Hematology - [place] [address] [place] [phone] Benigno Martin MD Malignant neoplasm of upper-outer quadrant of right breast in female, estrogen receptor positive (CMS/HCC) (Primary Dx) 03/10/2025 External Device Data STL ABSTRACTION Provider, Abstract 03/10/2025 Orders Only [facility] Oncology and Hematology - [place] [address] [place] [address] Benigno Martin MD 02/12/2025 Abstract [facility] Oncology and Hematology - [place] [address] [place] [address] Benigno Martin MD 02/09/2025 Orders Only [facility] Oncology and Hematology - [place] [address] [place] [address] Benigno Martin MD 02/04/2025 External Device Data STL ABSTRACTION Provider, Abstract 02/03/2025 External Device Data STL ABSTRACTION Provider, Abstract 01/06/2025 External Device Data STL ABSTRACTION Provider, Abstract from Last 3 Months Social History Tobacco [...] Sign Reading Time Taken Comments Blood Pressure 132/77 03/13/2025 10:19 AM CDT Pulse 95 03/13/2025 10:19 AM CDT Temperature 36.6 C (97.8 F) 03/13/2025 10:19 AM CDT Respiratory Rate 15 03/13/2025 10:19 AM CDT Oxygen Saturation 93% 03/13/2025 10:19 AM CDT Inhaled Oxygen Concentration - - Weight 85.5 kg (188 lb 6.4 oz) 03/13/2025 10:19 AM CDT Height 154.9 cm (5' 1) 08/15/2022 2:06 PM PLANT SUPERVISOR Body Mass Index 35.6 08/15/2022 2:06 PM PLANT SUPERVISOR Plan of Treatment Upcoming Encounters Date Type Department Care Team (Late st Contact Info) Description 07/31/2025 9:15 AM PLANT SUPERVISOR Office Visit [facility] Oncology and Hematology - [place] [address] [place] [address] Benigno Martin MD [address] [facility] [address] [place] [address] Health Maintenance Due Date Last Done Comments DIABETES ANNUAL FOOT EXAM 10/30/1969 DIABETES ANNUAL RETINAL EXAM 10/30/1969 DIABETES MICROALBUMIN ANNUAL SCREEN 10/30/1969 LDL CHOLESTEROL ANNUAL 10/30/1969 DTAP/TDAP/TD VACCINES (1 - Tdap) 10/30/1970 FIT-DNA Q 3 years 10/30/1996 FIT/FOBT Q 1 year 10/30/1996 Flex Sig/CT Colonography Q 5 years 10/30/1996 RSV VACCINE (60+ or ) (1 - Risk 60-74 years 1-dose series) 2011 PNEUMOCOCCAL VACCINE 50+ YEA RS (3 of 3 - PCV) 04/22/2018 04/22/2017, 04/22/2017, 07/01/2012 DIABETES HBA1C Q 6 MONTHS 01/09/2023 07/11/2022 BREAST CANCER SCREENING 02/03/2025 02/04/20 24, 07/27/2023, 12/27/2022 INFLUENZA VACCINE (#1) 2025 , 07/18/2023, 04/11/2022, Additional history exists COVID-19 Vaccine (5 - 2024-2 6 season) 2025 04/07/2024, 07/18/2023, 05/11/2021, Additional history exists OSTEOPOROSIS SCREENING 06/12/2029 06/12/2024 COLORECTAL SCREENING 01/14/2030 01/15/2020 Colorectal Cancer Screening 01/14/2030 ZOSTER VACCINE Completed 04/10/2019, 12/31/2018 Medical Devices Implanted Type Area Child Care Coordinator Device Identifier Shelf Expiration Date Model / Serial / Lot Clip Ligating Horizon Lg Ti [id number] - Csc - [id number] Implanted:Qty : 1 on 07/19/2022 by Kb Jaimes MD at [facility] Clip Right: Chest TELEFLEX- WECK CLOSURE SYS 09/12/2026 [id number] / / [id number] Clip Ligating Horizon Med Ti [id number] - [facility] - [id number] Implanted:Qty : 1 on 07/19/2022 by Kb Jaimes MD at [facility] Clip Right: Chest TELEFLEX- WECK CLOSURE SYS 01/06/2025 [id number] / / [id number] Sealant Progel Pleural 4ml [id number] - [id number] Implanted:Qty : 1 on 07/19/2022 by Kb Jaimes MD at [facility] Tissue BARD DAVOL [id number] 01/02/2024 [id number] / / [id number] Procedures Procedure Name Priority Date/Time Associated Diagnosis Comments CBC WITH AUTODIFFERENTIAL Routine 03/09/2025 12:[address] SINUSES LIMITED Routine 02/06/2025 10 :[address] CHEST W CONTRAST Routine 02/06/2025 1 0:49 AM CDT XR DEXA BONE DENSITY AXIAL 1 OR MORE SITES Routine 06/12/2024 10:45 AM PLANT SUPERVISOR MAMMO SCREENING BILAT Routine 02/04/2024 3:11 PM CDT HEMOGLOBIN A1C Routine 07/11/2022 2:23 PM PLANT SUPERVISOR from Last 3 Months or Most Recently Relevant to Health Maintenance Results * CBC WITH AUTODIFFERENTIAL (03/09/2025 12:42 PM CDT) Blood us Benigno Martin MD HEMATOLOGY ORDERABLES Final Res ult * CT SINUSES LIMITED (02/06/2025 10:56 AM CDT) Anatomical Region Laterality Modality Head Computed Tomogra phy us Benigno Martin MD CT ORDERABLES Final Result * CT CHEST W CONTRAST (02/06/2025 10:49 AM CDT) Anatomical Region Laterality Modality Chest Computed Tomogra phy us Benigno Martin MD CT ORDERABLES Final Result * XR DEXA BONE DENSITY AXIAL 1 OR MORE SITES (06/12/2024 10:45 AM PLANT SUPERVISOR) Anatomical Region Laterality Modality Other Benigno Martin MD DIAGNOSTIC IMAGING ORDERABLES F inal Result * MAMMO SCREENING BILAT (02/04/2024 3:11 PM CDT) Anatomical Region Laterality Modality Breast Bilateral Mammography Benigno Martin MD MAMMO ORDERABLES Final Result * (ABNORMAL) HEMOGLOBIN A1C (07/11/2022 2:23 PM PLANT SUPERVISOR) HEMOGLOBIN A1C 6.4(H) <5.7 % 07/11/2022 4:19 PM PLANT SUPERVISOR [facility] EST. AVG GLUCOSE, A1C 137 mg/dL 07/11/2022 4:19 PM PLANT SUPERVISOR [facility] [employer] [facility] Blood Venipuncture / Unknown 07/11/2022 2:23 PM PLANT SUPERVISOR 07/11/2022 3:49 PM PLANT SUPERVISOR Narrative [facility] - 07/11/2022 4:19 PM PLANT SUPERVISOR HGB A1C INTERPRETATION NORMAL: <5.7% PRE-DIABETES: 5.7 - 6.4% DIABETES: 6.5% OR GREATER Lucinda [facility]UE[facility] CHEMISTRY ORDERABLES Final Resu lt [facility] [facility] [id number] [address] [facility] [address] [place] [id number] from Last 3 Months or Most Recently Relevant to Health Maintenance Insurance AETNA [facility] AETNA PPO MCR Advance Directives For more information, please contact: [phone] * Full Code (Latest Code Status on File) Date Activated Date Inactivated Comments 07/19/2022 2:13 PM 07/22/2022 4:17 PM * Full Code Date Activated Date Inactivated Comments 07/19/2022 9:17 AM 07/19/2022 2:12 PM Care Teams Forestry Hunter Relationship Specialty Start Date End Date Devin Saldana MD [address] [place] [address] PCP - General Internal Medicine 04/11/22
== END 2025-04-01 12:42 | disposition home or self-care (01) ==
LOC: ANHSURGERY 12:44
PROVIDERS: Anesthesiology; PCP Internal Medicine; Visit Provider Otolaryngology Otolaryngology/Facial Plastic Surgery
DX: E11.9 Type 2 diabetes mellitus without complications (principal)
CPT/HCPCS: 36415; 80048

== ENCOUNTER 2025-04-10 05:34 | Day surgery (SDC) | payer MEDICARE, SELFPAY ==
--- NOTE | 2025-03-27 10:17 | PC.NURSE ---
Report to the Outpatient Waiting Room, entrance under the green pavilion located off [facility], at time _9:30 AM on date __04/10/25 . Planned Procedure Time: __11:30 AM .? Time changes happen often and if your time is changed the preop area will call you the afternoon before. - You and your visitor will be asked to self-screen and do not enter if you have any COVID symptoms. Please call surgeon if you need to reschedule. - A mask is optional within the hospital at this time. Patients may have clear liquids (water, carbonated beverages, clear teas, apple juice) until 3 hours prior to surgery ( 8:30 AM) with a maximum of 20 ounces. - No food from midnight until time of surgery and no smoking, or chewing tobacco (or any form of nicotine). No chewing gum, candy or mints. - Take only the following medications with a SIP of water on the morning of surgery: _INHALER ,PREDNISONE,SERTRALINE DO NOT STOP ANY OF YOUR OTHER PRESCRIPTION MEDICATIONS PRIOR TO SURGERY EXCEPT THE FOLLOWING Hold all vitamins and supplements for 3 days per anesthesiologist.LAST DOSE 04/06/25 Medications to discontinue per physician _PATIENT STATES WILL HOLD ASPIRIN,DICLOFENAC AND IBUPROFEN 7 DAYS PRE OP Date to take last dose Please no make-up, nail armenian, hairspray, perfume, deodorant, or body powder the day of surgery.? No jewelry (including any body piercings) or valuables the day of surgery, leave them at home.? Please take a shower or bath the night before, or the morning of, surgery with an antibacterial soap.? Wear comfortable, loose fitting clothing.? Children are encouraged to wear pajamas. - Jewelry must be removed prior to entering the operating room.? Rings and piercings that are not removed may be cut off. - The hospital will not accept responsibility for valuables.? - Please leave all valuables, including medications, at home the day of surgery. If you are going home after surgery, a licensed driver recruiter must drive you home.? - NO public transportation without another adult if you receive anesthesia. - We recommend that an adult stay with you for 24 hours following discharge. - We also recommend that you do not drive, make important decision, drink alcoholic beverages, or take any drugs that were not prescribed by your health care provider for at least 24 hours after your discharge time. For Pediatric surgeries, we recommend two adults accompany the child home. Follow any additional instructions given to you from your surgeon. Telephone instructions given to _PATIENT and asked if any additional questions and then verbalized understanding. Patient advised to call surgeon office or pre surgery nurse liaison [phone] if any additional questions.
[2025-03-27 10:40] VITALS: BMI 34.9
[2025-04-10] VITALS (10 sets, daily range): BP systolic 129–160; BP diastolic 53–99; PULSE 83–94; RESP 12–16; TEMP 36.3–37; O2SAT 92–98; BMI 35.4
--- OUTSIDE RECORDS SUMMARY | 2025-04-10 05:37 | XMS_ITS | Clinical Summary ---
Author Organization [facility] Address [address], [facility] [address] [place] [address] Phone Care Team Providers Care Classified Advertising Clerk Name Role Phone Devin Saldana MD Primary Care Provider [phone] Social History Tobacco Use Types Packs/Day Years [...] Relevant to Health Maintenance [facility] Care Teams Classified Advertising Clerk Relationship Specialty Start Date End Date Devin Saldnaa MD PCP - General Internal Medicine 08/25/19
--- OUTSIDE RECORDS SUMMARY | 2025-04-10 05:37 | XMS_ITS | Clinical Summary ---
Author Organization [facility] Address [facility] [place] [address] Care Team Providers Care Joint Machine Operator Name Role Phone Devin Saldana MD Primary Care Provider [phone] Freddy Ugalde MD Unavailable Unavailable Allergies Active [...] 3 (three) times daily. 1 Active nystatin 934047 UNIT/ML suspension Take 200,000 Units by mouth 2 (two) times daily as needed. 1 Active Vitamin D, Ergocalciferol, 45186 units Cap Take 1 tablet by mouth [...] Screening for colon cancer 12/10/2024 0 12/15/2024 Family History Medical History Relation Comments Cancer [...] AM CDT Legal Sex Female 3:45 PM PASTE UP ARTIST APPRENTICE Gender Identity Female 12/10/2024 10:56 AM CDT [...] (Latest Contact Info) Description 08/13/2025 9:00 AM PASTE UP ARTIST APPRENTICE Hospital Encounter [facility] [place] [address] Artur Veronica MD [address] [address] 08/13/2025 9:00 AM PASTE UP ARTIST APPRENTICE - 08/13/2025 9:30 AM PASTE UP ARTIST APPRENTICE Surgery [facility] [place] [address] Artur Veronica MD [address] [address] COLONOSCOPY SCREENING Scheduled Procedures Name Priority Associated Diagnoses Date/Ti me COLONOSCOPY SCREENING Pharyngoesophageal dysphagia Gastroesophageal reflux disease, unspecified whether esophagitis present Hiatal hernia Hx of adenomatous colonic polyps Screening for colon cancer History of pyloric stenosis 08/13/2025 9:00 AM PASTE UP ARTIST APPRENTICE EGD Pharyngoesophageal dysphagia Gastroesophageal reflux disease, unspecified whether esophagitis present Hiatal hernia Hx of adenomatous colonic polyps Screening for colon cancer History of pyloric stenosis 08/13/2025 9:00 AM PASTE UP ARTIST APPRENTICE Health Maintenance Due Date Last Done Comments [...] A1C 01/09/2023 07/11/2022 COVID-19 Vaccine (4 - 2024-2 6 season) 2025 05/11/2021, 09/28/2020, 08/31/2020 Zoster Vaccines Completed 04/10/2019, 12/31/2018 Dexa Scan (General) Completed 06/12/2024 PHQ-2 (Physician [place]) Completed 12/10/2024 Meningococcal B Vaccine Aged Out [...] [employer] Implanted Type Area Television Installer Device Identifier Shelf Expiration Date Model / Serial / Lot Resolution 360 Ultra Clip 235cm/2.8mm Implanted:Qty: 4 on 01/02/2022 by Robin Ray DO at [facility] Clip Implant [employer] [id number] 07/01/2024 [id number] / / [id number] Clip Resolution 2.8mm 360 235cm 11mm Open - [id number] Implanted:Qty: 1 on 01/02/2022 by Robin Ray DO at [facility] Clip Implant [employer] [id number] 08/14/2024 [id number] / / [id number] Clip Resolution 2.8mm 360 235cm 11mm Open - [id number] Implanted:Qty: 1 on 01/02/2022 by Robin Ray DO at [facility] Clip Implant [employer] [facility] [id number] 07/11/2024 [id number] / / [id number] Additional Health Concerns Active Problems Noted Date Diagnosed Date Autogenerated Problem 12/10/2024 Insurance AETNA AETNA Care Teams Joint Machine Operator Relationship Specialty Start Date End Date Devin Saldana MD [address] [place] [address] PCP - General INTERNAL MEDICINE 05/25/20 Freddy Ugalde MD [address] [place] [address] INTERNAL MEDICINE 12/22/21
--- OUTSIDE RECORDS SUMMARY | 2025-04-10 05:37 | XMS_ITS | Encounter Summary ---
Author Organization [facility] Address [address] [place] [address] Care Team Providers Care Radiology Tech Name Role Phone Devin Saldana MD Primary Care Provider [phone] Encounter Details Date Type Department Care Team (Late st Contact Info) Description 02/14/2023 Lab Requisition [facility] - DermPath Lab [address] [facility] [place] [id number] Carmen Florez MD [address] [facility] [address] [place] [address] Social History Tobacco Use Types Packs/Day Years Used Date Smoking Tobacco: Never Smokeless Tobacco: Never Alcohol Use Standard Drinks/Week Comments Not Currently 1 (1 standard drink = 0.6 oz pur e alcohol) Comments Unknown Sex and Gender Information Value Date Recorded Sex Assigned at Not on file 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 Gender Identity Not on file Sexual Orientation Not on file documented as of this encounter Plan of Treatment Not on file documented as of this encounter Procedures Procedure Name Priority Date/Time Associated Diagnosis Comments DERMATOPATHOLOGY Routine 02/14/2023 9:29 AM CDT documented in this encounter Results * DERMATOPATHOLOGY (02/14/2023 9:29 AM CDT) Case Report Dermatopathology Report Case: [id number] Authorizing Provider: Carmen Florez MD Collected: 02/14/2023 09:29 AM Ordering Location: [facility] DermPath Lab Received: 02/14/2023 04:32 PM Pathologist: [...] characteristic determined by the Dermatopathology Laboratory at [facility], directed by Dr. Radha Galvan. These tests need not be, and therefore are not, approved by the [place] Food and Drug Administration. The tests are used for clinical purposes. Billing Codes Specimen Charges Stain Charges 09173 1 3 2:20 PM CDT DERMATOPATHOLOGY LABORATORY Embedded Images 3 2:20 PM CDT DERMATOPATHOLOGY LABORATORY Pathology/Cytolo gy TISSUE SPECIMEN FROM SKIN / Unknown 02/14/2023 9:29 AM CDT 02/14/2023 4:32 PM CDT Carmen Florez MD LAB - PATHOLOGY/CYTOLOGY ORD ERABLES Final Result DERMATOPATHOLOGY LABORATORY [facility] - Department of Dermatology [facility] Medicine [address] [place] [address], [address] [phone] documented in this encounter Visit Diagnoses Not on filedocumented in this encounter Care Teams Radiology Tech Relationship Specialty Start Date End Date Devin Saldana MD [address] [place] [address] PCP - General 11/02/09 documented as of this encounter
--- OUTSIDE RECORDS SUMMARY | 2025-04-10 05:37 | XMS_ITS | Encounter Summary ---
Author Organization [facility] Address [address] [facility] [address] [place] [address] Care Team Providers Care Arch Pad Cementer Name Role Phone Devin Saldana MD Primary Care Provider [phone] Encounter Details Date Type Department Care Team (Late st Contact Info) Description 04/08/2024 Lab Requisition [facility] - DermPath Lab [address] [facility] [place] [phone] Jeanie Anthony MD [address] [facility] [address] [place] [address] Social History Tobacco Use Types Packs/Day Years Used Date Smoking Tobacco: Never Smokeless Tobacco: Never Alcohol Use Standard Drinks/Week Comments Not Currently 1 (1 standard drink = 0.6 oz pur e alcohol) Comments Unknown Sex and Gender Information Value Date Recorded Sex Assigned at Not on file 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 Gender Identity Not on file Sexual Orientation Not on file documented as of this encounter Plan of Treatment Not on file documented as of this encounter Procedures Procedure Name Priority Date/Time Associated Diagnosis Comments DERMATOPATHOLOGY Routine 04/08/2024 10:0 0 AM CDT documented in this encounter Results * DERMATOPATHOLOGY (04/08/2024 10:00 AM CDT) Case Report Dermatopathology Report Case: [id number] Authorizing Provider: Jeanie Anthony MD Collected: 04/08/2024 10:00 AM Ordering Location: [facility] - Received: 04/08/2024 03:39 PM [...] by the Dermatopathology Laboratory at [facility], directed by Dr. Radha Galvan. These tests need not be, and therefore are not, approved by the [place] Food and Drug Administration. The tests are used for clinical purposes. Billing Codes Specimen Charges Stain Charges 75441 1 4 2:04 PM CDT DERMATOPATHOLOGY LABORATORY Embedded Images 4 2:04 PM CDT DERMATOPATHOLOGY LABORATORY Pathology/Cytolo gy TISSUE SPECIMEN FROM SKIN / Unknown 04/08/2024 10:00 AM CDT 04/08/2024 3:39 PM CDT us Jeanie Anthony MD LAB - PATHOLOGY/CYTOLOGY OR DERABLES Final Result DERMATOPATHOLOGY LABORATORY [facility] - Department of Dermatology [facility] [address] [place] [address], [address] [phone] documented in this encounter Visit Diagnoses Not on filedocumented in this encounter Care Teams Arch Pad Cementer Relationship Specialty Start Date End Date Devin Saldana MD [address] [place] [address] PCP - General 11/02/09 documented as of this encounter
--- OUTSIDE RECORDS SUMMARY | 2025-04-10 05:37 | XMS_ITS | Clinical Summary ---
Author Organization [facility] Address [address] [facility] [place] [address] Care Team Providers Care Culturist Name Role Phone Devin Saldana MD Primary Care Provider [phone] Source Comments [facility],non-owned Affiliates and Associated Physician Practices is amultiple site organization consisting of ambulatory clinics and hospital sitesin [place], [place], [place] and [place]. This disclosure is being madepursuant to the Care Everywhere program and may not contain all information available regarding this patient. 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
--- OUTSIDE RECORDS SUMMARY | 2025-04-10 05:37 | XMS_ITS | Clinical Summary ---
Author Organization [facility] 2 Address [address] [facility] [place] [address] Care Team Providers Care Physician/Internist Name Role Phone Devin Saldana MD Primary Care Provider [phone] Bia Bryant DIRECTOR OF VOCATIONAL GUIDANCE Unavailable [phone] Allergies Active Allergy Reactions Criticality Noted Date [...] Encounters Date Type Department Care Team Description 04/08/2025 8:45 AM CDT Infusion [facility] at [address] [place] [address] Selective deficiency of IgG (HCC) (Primary Dx) 04/08/2025 8:15 AM CDT Lab [facility] [place] at [address] [address] Selective deficiency of IgG (HCC) 03/11/2025 8:45 AM CDT Infusion [facility] [place] at [address] [place] [address] Selective deficiency of IgG (HCC) (Primary Dx) 03/11/2025 8:15 AM CDT Lab [facility] at [address] [address] Selective deficiency of IgG (HCC) 02/11/2025 8:45 AM CDT Infusion [facility] at [address] [address] Selective deficiency of IgG (HCC) (Primary Dx) 02/11/2025 8:15 AM CDT Lab [facility] at [address] [address] Selective deficiency of IgG (HCC) 01/14/2025 8:45 AM CDT Infusion [facility] at [address] [address] Selective deficiency of IgG (HCC) (Primary Dx) 01/14/2025 8:15 AM CDT Lab [facility] at [address] [address] Selective deficiency of IgG (HCC) from Last [...] on file Legal 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 Gender Identity Not on file Sexual Orientation Not on file Obstetrics History Last Filed Vital Signs Vital Sign Reading Time Taken Comments Blood Pressure 136/72 04/08/2025 11:02 AM CDT Pulse 88 04/08/2025 11:02 AM CDT Temperature 37.2 C (98.9 F) 04/08/2025 11:02 AM CDT Respiratory Rate 18 04/08/2025 11:0 2 AM CDT Oxygen Saturation 97% 04/08/2025 11: 02 AM CDT Inhaled Oxygen Concentration - - Weight 84.4 kg (186 lb 1.1 oz) 04/08/2025 8:34 A M CDT w/o shoes Height 153.5 cm (5' 0.43) 02/11/2025 8:47 AM CD T Body Mass Index 35.82 02/11/2025 8:47 AM CDT Plan of Treatment Health Maintenance Due Date Last Done Comments Breast Cancer Screening-Mammogram 1950 Colon Cancer Screening-Colonoscopy 1950 Depression Screening 1950 Hepatitis C Screening 1950 DTaP/Tdap/Td Vaccine (1 - Tdap) 10/30/1962 Hepatitis B Screening 10/30/1969 Well Visit 65+ 10/30/2016 Pneumococcal vaccine 65+ (3 of 3 - PCV) 04/22/2018 04/22/2017, 04/22/2017, 07/01/2012 Fall Risk Assessment 02/23/2024 02/22/2023 Covid-19 Vaccine (2024-2 6 season) 2025 04/07/2024, 07/18/2023, 05/11/2021, Additional history exists Influenza Vaccine (#1) 2025 , 05/11/2021, 05/11/2020, Additional history exists Osteoporosis Screening-Bone Density Scan 06/12/2026 06/12/2024 Zoster Vaccine Completed 04/10/2019, 12/31/2018 Medical Devices Implanted Type Area Regional [employer] Manager Device Identifier Shelf Expiration Date Model / Serial / Lot [employer]/C R Bard Ventralight St Sepra Echo Ps 8x6in Monofilament Absorbable Low Latex Free [id number] - [id number] Implanted:Qty: 1 on 02/22/2023 by Robin Ray, at [facility] Mesh N/A: Abdomen [employer] [id number] 06/19/2023 [id number] / / [id number] Procedures Procedure Name Priority Date/Time Associated Diagnosis Comments DIFFERENTIAL AUTO Routine 04/08/2025 8:3 2 AM CDT Selective deficiency of IgG (HCC) RETICULOCYTES Routine 04/08/2025 8:32 AM CDT Selective deficiency of IgG (HCC) IGG Routine 04/08/2025 8:32 AM CDT Selective deficiency of IgG (HCC) CBC WITH AUTO DIFFERENTIAL Routine 04/08/2025 8:32 AM CDT Selective deficiency of IgG (HCC) DIFFERENTIAL AUTO Routine 03/11/2025 8:2 7 AM [...] 3 Months Results * (ABNORMAL) Differential, auto (04/08/2025 8:32 AM CDT) Neutrophil abs 4.58 1.50 - 6.50 K/cumm Comment:Testing performed by : [facility], [address] [place] [address]., [address] Imm gran abs 0.22(H) 0.00 - 0.10 K/cumm [facility] Comment:Testing performed by : [address], [place]., [address] Lymphocyte abs 1.34 0.80 - 3.30 K/cumm [facility] Comment:Testing performed by : [address] [address] Monocyte abs 0.40 0.20 - 0.80 K/cumm [facility] Comment:Testing performed by : [address] [address] Eosinophil abs 0.03 0.00 - 0.50 K/cumm [facility] Comment:Testing performed by : [address] [address] Basophil abs 0.01 0.00 - 0.10 K/cumm [facility] Comment:Testing performed by : [address] [address] Neutrophil pct 69.5 % [facility] Comment: Interpretive Data Percent cell count reference ranges are not reported, since discordance with absolute values may lead to misinterpretation of CBC data. Current Interpretive Data was last revised on 2017. Testing performed by: [address] [address] Imm gran pct 3.3 % [facility] Comment: Interpretive Data Percent cell count reference ranges are not reported, since discordance with absolute values may lead to misinterpretation of CBC data. Current Interpretive Data was last revised on 2017. Testing performed by: [address] [address] Lymphocyte pct 20.4 % [facility] Comment: Interpretive Data Percent cell count reference ranges are not reported, since discordance with absolute values may lead to misinterpretation of CBC data. Current Interpretive Data was last revised on 2017. Testing performed by: [address] [address] Monocyte pct 6.1 % [facility] Comment: Interpretive Data Percent cell count reference ranges are not reported, since discordance with absolute values may lead to misinterpretation of CBC data. Current Interpretive Data was last revised on 2017. Testing performed by: [address] [address] Eosinophil pct 0.5 % [facility] Comment: Interpretive Data Percent cell count reference ranges are not reported, since discordance with absolute values may lead to misinterpretation of CBC data. Current Interpretive Data was last revised on 2017. Testing performed by: [address] [address] Basophil pct 0.2 % [facility] Comment: Interpretive Data Percent cell count reference ranges are not reported, since discordance with absolute values may lead to misinterpretation of CBC data. Current Interpretive Data was last revised on 2017. Testing performed by: [address] [address] Blood 04/08/2025 8:32 AM CDT 04/08/2025 8:32 AM CDT us Bia Bryant DIRECTOR OF VOCATIONAL GUIDANCE LAB BLOOD ORDERABLES Final Result [facility] [address] [facility] Department [place] [address] * CBC with auto differential (04/08/2025 8:32 AM CDT) WBC 6.58 3.80 - 9.90 K/cumm Comment:Testing performed by : [address] [address] Hgb 12.7 11.9 - 15.5 g/dL CHRIS Comment:Testing performed by : [address] [address] Hct 36.5 35.6 - 45.5 % CHRIS Comment:Testing performed by : [address] [address] Plt 296 150 - 400 K/cumm [facility]IS Comment:Testing performed by : [address] [address] MPV 10.0 9.1 - 12.3 fL [facility]IS Comment:Testing performed by : [address] [address] RBC 3.94 3.90 - 5.20 M/cumm [facility]IS Comment:Testing performed by : [address] [address] MCV 92.6 81.3 - 96.4 fL [facility]IS Comment:Testing performed by : [address] [address] MCH 32.2 27.1 - 33.3 pg CHRIS Comment:Testing performed by : [address] [address] MCHC 34.8 32.3 - 35.7 g/dL CH[facility]IS Comment:Testing performed by : [address] [address] RDW CV 13.2 11.1 - 14.9 % CH[facility]IS Comment:Testing performed by : [address] [address] RDW SD 44.7 35.7 - 48.1 fL [facility] Comment:Testing performed by : [address] [address] NRBC abs 0.00 0.00 - 0.01 K/cumm [facility] Comment:Testing performed by : [address] [address] ANC Prelim 4.58 1.50 - 6.50 K/cumm [facility] Comment: Interpretive Data The rapid ANC is a preliminary automated count and may vary from the final ANC (Neut Abs) reported in the WBC differential that follows. Current interpretive data was last revised 2024. Testing performed by: [address] [address] Blood 04/08/2025 8:32 AM CDT 04/08/2025 8:32 AM CDT Bia Bryant DIRECTOR OF VOCATIONAL GUIDANCE LAB BLOOD ORDERABLES Final Result Performing Organization Address City/[facility] Co de Phone Number [id number] [place] [address] * Reticulocyte Count (04/08/2025 8:32 AM CDT) [facility] Retics, absolute 81 20 - 87 K/cumm Comment:Testing performed by : [address] [address] Retics 2.1 0.4 - 2.9 % CHRIS Comment:Testing performed by : [address] [address] Reticulocyte Hgb 35.9 30.5 - 38.0 pg [facility]IS Comment:Testing performed by : [address] [address] Blood 04/08/2025 8:32 AM CDT 04/08/2025 8:32 AM CDT Bia Bryant DIRECTOR OF VOCATIONAL GUIDANCE LAB BLOOD ORDERABLES Final Result Performing Organization Address City/[facility] Co de Phone Number [address] [place] [address] * IgG (04/08/2025 8:32 AM CDT) [facility] Immunoglobulin G 812 700 - 1,600 mg/dL Blood 04/08/2025 8:32 AM CDT 04/08/2025 10:27 AM CDT Bia Bryant DIRECTOR OF VOCATIONAL GUIDANCE LAB BLOOD ORDERABLES Final Result [facility] [address] [facility] Department [place] [address] * (ABNORMAL) Differential, auto (03/11/2025 8:27 AM CDT) Neutrophil abs 4.09 1.50 - 6.50 K/cumm Comment:Testing performed by : [address], [place]., [address] Imm gran abs 0.49(H) 0.00 - 0.10 K/cumm [facility]IS Comment:Testing performed by : [address], [place]., [address] Lymphocyte abs 2.02 0.80 - 3.30 K/cumm [facility] Comment:Testing performed by : [address] [address] Monocyte abs 0.52 0.20 - 0.80 K/cumm [facility] Comment:Testing performed by : [address] [address] Eosinophil abs 0.05 0.00 - 0.50 K/cumm [facility] Comment:Testing performed by : [address] [address] Basophil abs 0.02 0.00 - 0.10 K/cumm [facility] Comment:Testing performed by : [address] [address] Neutrophil pct 56.9 % [facility] Comment: Interpretive Data Percent cell count reference ranges are not reported, since discordance with absolute values may lead to misinterpretation of CBC data. Current Interpretive Data was last revised on 2017. Testing performed by: [address] [address] Imm gran pct 6.8 % [facility] Comment: Interpretive Data Percent cell count reference ranges are not reported, since discordance with absolute values may lead to misinterpretation of CBC data. Current Interpretive Data was last revised on 2017. Testing performed by: [address] [address] Lymphocyte pct 28.1 % [facility]IS Comment: Interpretive Data Percent cell count reference ranges are not reported, since discordance with absolute values may lead to misinterpretation of CBC data. Current Interpretive Data was last revised on 2017. Testing performed by: [address] [address] Monocyte pct 7.2 % [facility]IS Comment: Interpretive Data Percent cell count reference ranges are not reported, since discordance with absolute values may lead to misinterpretation of CBC data. Current Interpretive Data was last revised on 2017. Testing performed by: [address] [address] Eosinophil pct 0.7 % [facility] Comment: Interpretive Data Percent cell count reference ranges are not reported, since discordance with absolute values may lead to misinterpretation of CBC data. Current Interpretive Data was last revised on 2017. Testing performed by: [address] [address] Basophil pct 0.3 % [facility] Comment: Interpretive Data Percent cell count reference ranges are not reported, since discordance with absolute values may lead to misinterpretation of CBC data. Current Interpretive Data was last revised on 2017. Testing performed by: [address] [address] Blood 03/11/2025 8:27 AM CDT 03/11/2025 8:32 AM CDT Bia Bryant NP LAB BLOOD ORDERABLES Final Result [facility] [address] [facility] Department of Laboratories [place], [place] [id number] * CBC with auto differential (03/11/2025 8:27 AM CDT) WBC 7.19 3.80 - 9.90 K/cumm Comment:Testing performed by : [address] [address] Hgb 12.8 11.9 - 15.5 g/dL CH[facility]IS ACUNA Comment:Testing performed by : [address] [address] Hct 36.9 35.6 - 45.5 % [facility]IS Comment:Testing performed by : [address] [address] Plt 252 150 - 400 K/cumm [facility] Comment:Testing performed by : [address] [address] MPV 10.0 9.1 - 12.3 fL [facility]IS Comment:Testing performed by : [address] [address] RBC 3.99 3.90 - 5.20 M/cumm [facility]IS Comment:Testing performed by : [address] [address] MCV 92.5 81.3 - 96.4 fL [facility] Comment:Testing performed by : [address] [address] MCH 32.1 27.1 - 33.3 pg [facility]IS Comment:Testing performed by : [address] [address] MCHC 34.7 32.3 - 35.7 g/dL CH[facility]IS Comment:Testing performed by : [address], [address] RDW CV 13.0 11.1 - 14.9 % [facility]IS Comment:Testing performed by : [address] [address] RDW SD 43.8 35.7 - 48.1 fL [facility] Comment:Testing performed by : [address] [address] NRBC abs 0.00 0.00 - 0.01 K/cumm [facility] Comment:Testing performed by : [address] [address] ANC Prelim 4.09 1.50 - 6.50 K/cumm [facility] Comment: Interpretive Data The rapid ANC is a preliminary automated count and may vary from the final ANC (Neut Abs) reported in the WBC differential that follows. Current interpretive data was last revised 2024. Testing performed by: [address], [address] Blood 03/11/2025 8:27 AM CDT 03/11/2025 8:32 AM CDT Bia Bryant DIRECTOR OF VOCATIONAL GUIDANCE LAB BLOOD ORDERABLES Final Result Performing Organization Address [facility] Co de Phone Number [id number] [employer] [place] [address] * Reticulocyte Count (03/11/2025 8:27 AM CDT) [facility] Retics, absolute 83 20 - 87 K/cumm Comment:Testing performed by : [address] [address] Retics 2.1 0.4 - 2.9 % CHRIS Comment:Testing performed by : [facility], [address] [place] [address]., [address] Reticulocyte Hgb 36.7 30.5 - 38.0 pg [facility]IS Comment:Testing performed by : [address] [address] Blood 03/11/2025 8:27 AM CDT 03/11/2025 8:32 AM CDT Bia Bryant NP LAB BLOOD ORDERABLES Final Result Performing Organization Address [facility] de Phone Number [address] [address] * IgG (03/11/2025 8:27 AM CDT) [facility] Immunoglobulin G 801 700 - 1,600 mg/dL Blood 03/11/2025 8:27 AM CDT 03/11/2025 6:57 PM CDT Bia Bryant DIRECTOR OF VOCATIONAL GUIDANCE LAB BLOOD ORDERABLES Final Result Performing Organization Address [facility] Co de Phone Number [address] [employer] [place] [address] * (ABNORMAL) Differential, auto (02/11/2025 8:40 AM CDT) Pathologist [facility] Neutrophil abs 3.53 1.50 - 6.50 K/cumm Comment:Testing performed by : [address] [address] Imm gran abs 0.45(H) 0.00 - 0.10 K/cumm CH[facility]IS Comment:Testing performed by : [address] [address] Lymphocyte abs 1.44 0.80 - 3.30 K/cumm CH[facility]IS Comment:Testing performed by : [address], [place]., [address] Monocyte abs 0.36 0.20 - 0.80 K/cumm [facility] Comment:Testing performed by : [address], [place]., [address] Eosinophil abs 0.03 0.00 - 0.50 K/cumm [facility] Comment:Testing performed by : [address] [address] Basophil abs 0.01 0.00 - 0.10 K/cumm [facility] Comment:Testing performed by : [address] [address] Neutrophil pct 60.7 % [facility] Comment: Interpretive Data Percent cell count reference ranges are not reported, since discordance with absolute values may lead to misinterpretation of CBC data. Current Interpretive Data was last revised on 2017. Testing performed by: [address] [address] Imm gran pct 7.7 % [facility] Comment: Interpretive Data Percent cell count reference ranges are not reported, since discordance with absolute values may lead to misinterpretation of CBC data. Current Interpretive Data was last revised on 2017. Testing performed by: [address] [address] Lymphocyte pct 24.7 % [facility] Comment: Interpretive Data Percent cell count reference ranges are not reported, since discordance with absolute values may lead to misinterpretation of CBC data. Current Interpretive Data was last revised on 2017. Testing performed by: [address] [address] Monocyte pct 6.2 % CH[facility]IS Comment: Interpretive Data Percent cell count reference ranges are not reported, since discordance with absolute values may lead to misinterpretation of CBC data. Current Interpretive Data was last revised on 2017. Testing performed by: [address] [address] Eosinophil pct 0.5 % [facility] ACUNA Comment: Interpretive Data Percent cell count reference ranges are not reported, since discordance with absolute values may lead to misinterpretation of CBC data. Current Interpretive Data was last revised on 2017. Testing performed by: [address] [address] Basophil pct 0.2 % [facility] Comment: Interpretive Data Percent cell count reference ranges are not reported, since discordance with absolute values may lead to misinterpretation of CBC data. Current Interpretive Data was last revised on 2017. Testing performed by: [address] [address] Blood 02/11/2025 8:40 AM CDT 02/11/2025 8:48 AM CDT Bia Bryant NP LAB BLOOD ORDERABLES Final Result [facility] [address] [facility] Department of Laboratories [place], [place] [id number] * CBC with auto differential (02/11/2025 8:40 AM CDT) WBC 5.82 3.80 - 9.90 K/cumm Comment:Testing performed by : [address] [address] Hgb 12.9 11.9 - 15.5 g/dL [facility] ACUNA Comment:Testing performed by : [address] [address] Hct 36.9 35.6 - 45.5 % [facility] ACUNA Comment:Testing performed by : [address] [address] Plt 235 150 - 400 K/cumm CH[facility]IS ACUNA Comment:Testing performed by : [address] [address] MPV 9.9 9.1 - 12.3 fL CH[facility]IS Comment:Testing performed by : [address] [address] RBC 4.03 3.90 - 5.20 M/cumm CH[facility] Comment:Testing performed by : [address] [address] MCV 91.6 81.3 - 96.4 fL [facility] Comment:Testing performed by : [address] [address] MCH 32.0 27.1 - 33.3 pg [facility]IS Comment:Testing performed by : [address] [address] MCHC 35.0 32.3 - 35.7 g/dL CH[facility]IS Comment:Testing performed by : [address] [address] RDW CV 12.9 11.1 - 14.9 % [facility] Comment:Testing performed by : [address] [address] RDW SD 42.8 35.7 - 48.1 fL [facility] Comment:Testing performed by : [address] [address] NRBC abs 0.00 0.00 - 0.01 K/cumm [facility] Comment:Testing performed by : [address] [address] ANC Prelim 3.53 1.50 - 6.50 K/cumm [facility] Comment: Interpretive Data The rapid ANC is a preliminary automated count and may vary from the final ANC (Neut Abs) reported in the WBC differential that follows. Current interpretive data was last revised 2024. Testing performed by: [address] [address] Blood 02/11/2025 8:40 AM CDT 02/11/2025 8:48 AM CDT us Bia Bryant DIRECTOR OF VOCATIONAL GUIDANCE LAB BLOOD ORDERABLES Final Result Performing Organization Address [facility] Co de Phone Number [id number] [employer] [place] [address] * (ABNORMAL) Reticulocyte Count (02/11/2025 8:40 AM CDT) [facility] Retics, absolute 88(H) 20 - 87 K/cumm Comment:Testing performed by : [address] [address] Retics 2.2 0.4 - 2.9 % CH[facility]IS Comment:Testing performed by : [address] [address] Reticulocyte Hgb 36.8 30.5 - 38.0 pg [facility] Comment:Testing performed by : [address] [address] Blood 02/11/2025 8:40 AM CDT 02/11/2025 8:48 AM CDT Bia Bryant DIRECTOR OF VOCATIONAL GUIDANCE LAB BLOOD ORDERABLES Final Result Performing Organization Address [facility] Co de Phone Number [address] [place] [address] * IgG (02/11/2025 8:40 AM CDT) [facility] Immunoglobulin G 829 700 - 1,600 mg/dL Blood 02/11/2025 8:40 AM CDT 02/11/2025 4:33 PM CDT Bia Bryant DIRECTOR OF VOCATIONAL GUIDANCE LAB BLOOD ORDERABLES Final Result Performing Organization Address City/[facility] Co de Phone Number [address] [place] [address] * (ABNORMAL) CBC with auto differential (01/14/2025 8:22 AM CDT) [facility] WBC 9.45 3.80 - 9.90 K/cumm Comment:Testing performed by : [address], [address] Hgb 12.3 11.9 - 15.5 g/dL CH[facility]IS Comment:Testing performed by : [address], [address] Hct 36.1 35.6 - 45.5 % [facility]IS Comment:Testing performed by : [address], [address] Plt 236 150 - 400 K/cumm [facility] Comment:Testing performed by : [address], [address] MPV 9.7 9.1 - 12.3 fL [facility] Comment:Testing performed by : [address], [address] RBC 3.84(L) 3.90 - 5.20 M/cumm [facility] Comment:Testing performed by : [address], [address] MCV 94.0 81.3 - 96.4 fL [facility]IS Comment:Testing performed by : [address], [address] MCH 32.0 27.1 - 33.3 pg [facility]IS Comment:Testing performed by : [address], [address] MCHC 34.1 32.3 - 35.7 g/dL [facility] Comment:Testing performed by : [address], [address] RDW CV 13.2 11.1 - 14.9 % [facility] Comment:Testing performed by : [address], [address] RDW SD 45.1 35.7 - 48.1 fL [facility] Comment:Testing performed by : [address], [address] NRBC abs 0.00 0.00 - 0.01 K/cumm [facility] Comment:Testing performed by : [address], [address] ANC Prelim 6.34 1.50 - 6.50 K/cumm [facility] Comment: Interpretive Data The rapid ANC is a preliminary automated count and may vary from the final ANC (Neut Abs) reported in the WBC differential that follows. Current interpretive data was last revised 2024. Testing performed by: [address] [address] Blood 01/14/2025 8:22 AM CDT 01/14/2025 8:24 AM CDT Bia Bryant DIRECTOR OF VOCATIONAL GUIDANCE LAB BLOOD ORDERABLES Final Result [facility] [address] [facility] Department [place] [address] * (ABNORMAL) Manual Differential (01/14/2025 8:22 AM CDT) Differential Manual Comment:Testing performed by : [address] [address] Cells Counted 100 CHRIS Comment:Testing performed by : [address] [address] Neutrophil abs 6.90(H) 1.50 - 6.50 K/cumm [facility] Comment:Testing performed by : [address] [address] Lymphocyte abs 2.17 0.80 - 3.30 K/cumm [facility] Comment:Testing performed by : [address] [address] Monocyte abs 0.38 0.20 - 0.80 K/cumm [facility] Comment:Testing performed by : [address] [address] Neutrophil pct 73.0 % [facility] Comment: Interpretive Data Percent cell count reference ranges are not reported, since discordance with absolute values may lead to misinterpretation of CBC data. Current Interpretive Data was last revised on 2017. Testing performed by: [address] [address] Lymphocyte pct 23.0 % [facility] Comment: Interpretive Data Percent cell count reference ranges are not reported, since discordance with absolute values may lead to misinterpretation of CBC data. Current Interpretive Data was last revised on 2017. Testing performed by: [address] [address] Monocyte pct 4.0 % [facility] ACUNA Comment: Interpretive Data Percent cell count reference ranges are not reported, since discordance with absolute values may lead to misinterpretation of CBC data. Current Interpretive Data was last revised on 2017. Testing performed by: [address] [address] Blood 01/14/2025 8:22 AM CDT 01/14/2025 8:24 AM CDT Bia Bryant LAB BLOOD ORDERABLES Final Result Performing Organization Address [facility] [address]/[facility] de Phone Number [address] [place] [address] * Reticulocyte Count (01/14/2025 8:22 AM CDT) Pathologist [facility] Retics, absolute 79 20 - 87 K/cumm Comment:Testing performed by : [address] [address] Retics 2.1 0.4 - 2.9 % CHRIS ACUNA Comment:Testing performed by : [address] [address] Reticulocyte Hgb 36.0 30.5 - 38.0 pg CHRIS ACUNA Comment:Testing performed by : [address] [address] Blood 01/14/2025 8:22 AM CDT 01/14/2025 8:24 AM CDT iBa Bryant LAB BLOOD ORDERABLES Final Result Performing Organization Address City/[facility] [address]/[facility] Co de Phone Number [address] [place] [address] * IgG (01/14/2025 8:22 AM CDT) [facility] Immunoglobulin G 789 700 - 1,600 mg/dL Blood 01/14/2025 8:22 AM CDT 01/14/2025 2:26 PM CDT Bia Bryant DIRECTOR OF VOCATIONAL GUIDANCE LAB BLOOD ORDERABLES Final Result GURVINDERNER MH [address] [facility] Department [place] [address] from Last 3 Months Insurance SPECIAL CONTRACT ARRANGEMENT [facility] MEDICARE [facility] MEDICARE ADVANTAGE AET MEDICARE Care Teams Physician/Internist Relationship Specialty Start Date End Date Devin Saldana MD [address] MEDICINE [place], [place] [id number] PCP - General 11/14/17 Bia Bryant NP [address] INTERNAL MEDICINE [place], [place] [id number] Nurse Practitioner Nurse Practitioner 10/30/23
--- OUTSIDE RECORDS SUMMARY | 2025-04-10 05:37 | XMS_ITS | Clinical Summary ---
Author Organization [facility] Address [address] [facility] [address] Care Team Providers Care Airplane Pilot Name Role Phone Devin Saldana MD Primary [...] daily. Active fluticasone propionate (FLONASE) 50 mcg/spray [place], Suspension nasal inhaler Administer 1 [place] in each nostril daily. Active hydroCHLOROthia zide [...] times daily. 180 Capsule 07/22/2022 12:42 PM ASSISTANT DIRECTOR OF PUBLIC WORKS 07/21/20 Active Additional Information Patient taking differently: 300 mgOral THREE TIMES DAILY, Reported on 08/14/2022 traMADoL (ULTRAM) 50 mg tabletIndicatio ns:S/P thoracotomy Take 1 Tablet (50 mg) by mouth every 6 hours as needed for Pain. 30 Tablet 07/22/2022 12:42 PM ASSISTANT DIRECTOR OF PUBLIC WORKS 07/22/20 Active Additional Information Patient taking differently: 100 mgOralTWO TIMES DAILY, Reported on 08/14/2022 oxyCODONE (ROXICODONE) 5 mg tabletIndicatio ns:S/P thoracotomy Take 1 Tablet (5 mg) by mouth every 4 hours as needed for Pain. 42 Tablet 07/22/2022 12:42 PM ASSISTANT DIRECTOR OF PUBLIC WORKS 07/22/20 Active rosuvastatin (CRESTOR) 10 mg tablet [...] Description 03/13/2025 10:30 AM CDT Office Visit [facility] - [place] [address] [place] [phone] Benigno Martin MD Malignant neoplasm of upper-outer quadrant of right breast in female, estrogen receptor positive (CMS/HCC) (Primary Dx) 03/10/2025 External Device Data STL ABSTRACTION Provider, Abstract 03/10/2025 Orders Only [facility] [place] [address] [place] [phone] Benigno Martin MD 02/12/2025 Abstract [facility] [place] [address] [place] [address] Benigno Martin MD 02/09/2025 Orders Only [facility] [place] [address] [place] [phone] Benigno Martin MD 02/04/2025 External Device Data [...] 154.9 cm (5' 1) 08/15/2022 2:06 PM ASSISTANT DIRECTOR OF PUBLIC WORKS Body Mass Index 35.6 08/15/2022 2:06 PM ASSISTANT DIRECTOR OF PUBLIC WORKS Plan of Treatment Upcoming Encounters Date Type Department Care Team (Late st Contact Info) Description 07/31/2025 9:15 AM ASSISTANT DIRECTOR OF PUBLIC WORKS Office Visit [facility] - [place] [address] [place] [address] Benigno Martin MD [address] [facility] [address] [place] [phone] Health Maintenance Due Date Last Done [...] 04/10/2019, 12/31/2018 Medical Devices Implanted Type Area Wire Stitcher Machine Device Identifier Shelf Expiration Date Model / Serial / Lot Clip Ligating Horizon Lg Ti [id number] - Csc - [id number] Implanted:Qty : 1 on 07/19/2022 by Kb Jaimes MD at [facility] Clip Right: Chest TELEFLEX- WECK CLOSURE SYS 09/12/2026 [id number] / / [id number] Clip Ligating Horizon Med Ti [id number] - Csc - [id number] Implanted:Qty : 1 on 07/19/2022 by Kb Jaimes MD at [facility] Clip Right: Chest TELEFLEX- WECK CLOSURE SYS 01/06/2025 [id number] / / [id number] Sealant Progel Pleural 4ml [id number] - [id number] Implanted:Qty : 1 on 07/19/2022 by Kb Jaimes MD at [facility] Tissue BARD DAVOL [id number] 01/02/2024 [id number] / / [id number] Procedures Procedure Name Priority Date/Time Associated Diagnosis Comments CBC WITH AUTODIFFERENTIAL Routine 03/09/2025 12:[address] SINUSES LIMITED Routine 02/06/2025 10 :[address] CHEST W CONTRAST Routine 02/06/2025 1 0:49 AM CDT XR DEXA BONE DENSITY AXIAL 1 OR MORE SITES Routine 06/12/2024 10:45 AM ASSISTANT DIRECTOR OF PUBLIC WORKS MAMMO SCREENING BILAT Routine 02/04/2024 3:11 PM CDT HEMOGLOBIN A1C Routine 07/11/2022 2:23 PM ASSISTANT DIRECTOR OF PUBLIC WORKS from Last 3 Months or Most Recently [...] 1 OR MORE SITES (06/12/2024 10:45 AM ASSISTANT DIRECTOR OF PUBLIC WORKS) Anatomical Region Laterality Modality Other us Benigno Martin MD DIAGNOSTIC IMAGING ORDERABLES F inal Result * MAMMO SCREENING BILAT (02/04/2024 3:11 PM CDT) Anatomical Region Laterality Modality Breast Bilateral Mammography Benigno Martin MD MAMMO ORDERABLES Final Result * (ABNORMAL) HEMOGLOBIN A1C (07/11/2022 2:23 PM ASSISTANT DIRECTOR OF PUBLIC WORKS) HEMOGLOBIN A1C 6.4(H) <5.7 % 07/11/2022 4:19 PM ASSISTANT DIRECTOR OF PUBLIC WORKS [facility] EST. AVG GLUCOSE, A1C 137 mg/dL 07/11/2022 4:19 PM ASSISTANT DIRECTOR OF PUBLIC WORKS [facility] Blood Venipuncture / Unknown 07/11/2022 2:23 PM ASSISTANT DIRECTOR OF PUBLIC WORKS 07/11/2022 3:49 PM ASSISTANT DIRECTOR OF PUBLIC WORKS Narrative [facility] - 07/11/2022 4:19 PM ASSISTANT DIRECTOR OF PUBLIC WORKS HGB A1C INTERPRETATION NORMAL: <5.7% PRE-DIABETES: 5.7 - 6.4% DIABETES: 6.5% OR GREATER Lucinda Cindy Hoyos BREAD MOLDER CHEMISTRY ORDERABLES Final Resu lt [facility] [employer] [facility] CLIA# [id number] [facility] [place] [address] from Last 3 Months or Most Recently Relevant to Health Maintenance Insurance AET[employer] O [facility] AETNA PPO MCR Advance Directives For more information, please contact: [phone] * Full Code (Latest Code Status on File) Date Activated Date Inactivated Comments 07/19/2022 2:13 PM 07/22/2022 4:17 PM * Full Code Date Activated Date Inactivated Comments 07/19/2022 9:17 AM 07/19/2022 2:12 PM Care Teams Airplane Pilot Relationship Specialty Start Date End Date Devin Saldana MD [address] [place] [phone] PCP - General Internal Medicine 04/11/22
--- OUTSIDE RECORDS SUMMARY | 2025-04-10 05:37 | XMS_ITS | Encounter Summary ---
Author Organization [facility] Address [address] [place] [address] Care Team Providers Care Shoeshiner Name Role Phone Devin Saldana MD Primary Care Provider [phone] Encounter Details Date Type Department Care Team (Late st Contact Info) Description 03/19/2019 Lab Requisition [facility] [address] [facility] [place] [address] Jeanie Anthony MD [address] [facility] [address] [place] [address] Social History Tobacco Use Types Packs/Day Years Used Date Smoking Tobacco: Never Alcohol Use Standard Drinks/Week Comments Yes 0 (1 standard drink = 0.6 oz pur e alcohol) Comments Unknown Sex and Gender Information Value Date Recorded Sex Assigned at Not on file Legal Sex Female 6:24 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 Gender Identity Not on file Sexual Orientation Not on file documented as of this encounter Plan of Treatment Not on file documented as of this encounter Procedures Procedure Name Priority Date/Time Associated Diagnosis Comments DERMATOPATH TECHNICAL REPORT Routine 03/18/2019 12:00 AM CDT documented in this encounter Results * DERMATOPATH TECHNICAL REPORT (03/18/2019 12:00 AM CDT) Case Report Dermatopathology Report Case: [id number] Authorizing Provider: Jeanie Anthony MD Collected: 03/18/2019 12:00 AM Ordering Location: [facility] Received: 03/19/2019 07:45 AM Pathologist: Kal Galvan MD Specimen: Skin, left corner of mouth 2:39 PM CDT DERMATOPATHOLOGY LABORATORY Addendum 1 At the request of the diagnosing physician, the technical component for Gram test and HSV was performed by [facility] Dermat[facility]. 2:39 PM CDT DERMATOPATHOLOGY LABORATORY Addendum electronically signed by Kal Galvan MD on 03/22/2019 at 1439 CDT Clinical History Folliculitis vs BCC vs other. Irrit. 2:39 PM CDT DERMATOPATHOLOGY LABORATORY Gross Description Specimen A: Received is one formalin filled container labeled with the patient's name and designated left corner of mouth. The specimen consists of a punch measuring [id number]. Jar 0. [facility] performed the technical [...] characteristic determined by the Dermatopathology Laboratory at [facility], directed by Dr. Radha Galvan. [...] DERMATOPATHOLOGY LABORATORY [facility] - Department of Dermatology [address] [place] [address], [address] [place] [address], [facility] [phone] documented in this encounter Visit Diagnoses Not on filedocumented in this encounter Care Teams Shoeshiner Relationship Specialty Start Date End Date Devin Saldana MD [address] [place] [phone] PCP - General 11/02/09 documented as of this encounter
[2025-04-10] MEDS: LACTATED RINGERS 1,000 ML 30 ML IV CONT ×2 (09:45→13:36)
[2025-04-10] MEDS: ACETAMINOPHEN 500 MG TABLET 1000 MG PO (09:50)
[2025-04-10] MEDS: OXYMETAZOLINE HCL 0.05% NAS 15 ML BTL (*BKC) 2 SPRAY NASAL ×3 (09:50→10:05)
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
--- NOTE | 2025-04-10 10:00 | WPDHPUPDATE1 ---
History and Physical Update Update Date/Time: 04/10/25 10:00 History and Physical has been reviewed, including an updated exam of the patient. There are NO changes in the patient's condition. Risks, benefits, and alternatives have been discussed and questions answered. Patient agrees to proceed with procedure.
[2025-04-10] MEDS: TRANEXAMIC ACID 1,000MG/ISO100 1,000 MG/100 ML BAG 200 MG IVPB (10:16)
[2025-04-10] MEDS: CLINDAMYCIN 600 MG/D5W 50 ML 600 MG/50 ML PIGGYBACK 100 MG IVPB (10:16)
[2025-04-10] MEDS: COCAINE HCL (*CRX) 4% TOP SOLN 4 ML VIAL 1 APPLIC TOPICAL (10:52)
[2025-04-10] MEDS: TRIAMCINOLONE ACET INJ 40 MG/ML VIAL XX (10:57)
--- NOTE | 2025-04-10 13:36 | W.PM.PROC2 ---
Procedure Note - Detailed Date of Procedure 04/10/25 Pre-op Diagnosis chronic Ehmoidal Maxillary Sinusitis-deviated nasal septum Post-op Diagnosis Same Procedure Performed ? Endoscopic septoplasty ? Nasal endoscopy with maxillary antrostomy bilaterally. ? Nasal endoscopy with ethmoidectomy, total (anterior and posterior) bilaterally. ? Cryotherapy of Vidian nerve bilaterally. ? Nasal endoscopy with removal of jaciel bullosa left side Surgeon Marcia Barrett MD Anesthesia General Indications chronic sinusitis -deviated nasal septum-nasalcongestion Findings sclerotic bony ethmoids especially the left side Description of Procedure The patient was seen in the preoperative area, informed consent was checked and confirmed. The patient was taken to the operating room, sedated and placed under general anesthesia with an endotracheal tube . Eyes were taped and were prepped and draped in the usual sterile fashion. The nose was examined, and the left anterior septum was injected with 1% lidocaine with 1:100,000 epinephrine. Milnor incision was made and a mucoperichondrial flap was elevated to expose the quadrangular cartilage and bony septum. Incision was then made anteriorly on the quadrangular cartilage to elevate the contralateral mucoperichondrial flap. The deviated quadrangular cartilage was excised with a Chrissy knife. At least 1 cm of dorsal and caudal strut of quadrangular was left in place. We resected the deviated bony septum with a [place] and a pituitary forceps. After adequate resection of the posterior-inferior bony septum, the mucoperichondrial Flap was laid back in anatomic position. 04 vicryl sutures were used to suture the incision Attention was turned to cryotherapy with identification of basal lamella of the middle turbinate bilaterally. Starting with the left side, ClariFix cryoprobe was inserted into the left nasal cavity, and a probe was placed on the basal lamella of the middle turbinate, the ClariFix valve was opened and freezing of the vidian nerve for 30 seconds was performed. The valve was closed, Ice was allowed to melt down for another 30 seconds, then the ClariFix cryoprobe was removed in atraumatic fashion. We turned to the right side and in similar fashion ClariFix cryoprobe was inserted into the nasal cavity, the tip of the probe was placed through the basal lamella of the middle turbinate, the valve was opened, freezing of the vidian nerve for 30 seconds was performed, valve was closed, and the ice was allowed to melt down for another 30 seconds, ClariFix probe was removed in atraumatic fashion.? We proceeded to the endoscopic sinus procedure starting on the right side. The agger nasi area was injected with 1% lidocaine with 1:100,000 epinephrine. The body of the middle turbinate was injected with 1% lidocaine with 1:100,000 epinephrine. The middle turbinate was gently medialized and the uncinectomy was performed with a pediatric Barros backbiter and the uncinectomy was completed with a shaver from the inferior-posterior attachment to the superior anterior attachment. The ethmoidectomy was performed by shaving the anterior ethmoid bulla and care was taken to protect the skull base in the lamina papyracea. Maxillary antrum was re-examined with a 30-degree scope. A ball probe was passed into the antrum and was further widened with a backbiter in the anterior-inferior aspect.right posterior ethmoidectomy was done through the inferio-medial quadrant of basal lamella ,posterior ethmoid cells were removed from anterior to posterior direction and from inferior to superior taking care to preserve skull base and lamina papyracea.then ,lateralization of the middle turbinate and shaving,opening of the posterior corridor and shaving the posterior part of the middle turbinate to widen the superior meatus and i proceeded to the left side : The agger nasi area was injected with 1% lidocaine with 1:100,000 epinephrine. The body of the middle turbinate was injected with 1% lidocaine with 1:100,000 epinephrine. The middle turbinate was gently medialized and the uncinectomy was performed with a pediatric Barros backbiter and the uncinectomy was completed with a shaver from the inferior-posterior attachment to the superior anterior attachment. The ethmoidectomy was performed by shaving the anterior ethmoid bulla and care was taken to protect the skull base in the lamina papyracea. Maxillary antrum was re-examined with a 30-degree scope. A ball probe was passed into the antrum and was further widened with a backbiter in the anterior-inferior aspect.left posterior ethmoidectomy was done through the inferio-medial quadrant of basal lamella ,posterior ethmoid cells were removed from anterior to posterior direction and from inferior to superior taking care to preserve skull base and lamina papyracea.then ,lateralization of the middle turbinate and shaving,opening of the posterior corridor and shaving the posterior part of the middle turbinate to widen the superior meatus The right jaciel bullosa was resected with a shaver. The lateral wall of the jaciel bullosa was resected with care taken to protect its medial wall and middle turbinate attachment to the lateral nasal wall and the skull base.? Pledgets were removed from ethmoid cavities, PosiSep X BAM Hemostat Dressing sponges were placed in ethmoid cavities bilaterally and infiltrated with a mixture of kenalog and cefazolin. The nose was then suctioned clean and at this point the care of the patient was then transferred to the anesthesiologist where the patient emerged from general anesthesia without complication. Estimated Blood Loss 20 (ml) Drains No Packing Yes (3.5 cm merocel nasal packing ) Complications No immediate complications Condition Stable Disposition PACU [facility] Billing Surgery - Charge Forward: Surgery Billing
[2025-04-10] MEDS: fentaNYL CITRATE INJ (*CRX) 100 MCG/2 ML VIAL 25 MCG IV PUSH ×2 (14:23→14:26)
== END 2025-04-10 15:32 | disposition home or self-care (01) ==
PROVIDERS: PCP Internal Medicine; Visit Provider Otolaryngology Otolaryngology/Facial Plastic Surgery
PROC: (CPT 30520; principal; 2025-04-10 11:30)
PROC: (CPT 30520; 2025-04-10 11:30)
DX: J32.2 Chronic ethmoidal sinusitis (principal); J34.2 Deviated nasal septum; G89.18 Other acute postprocedural pain; E78.5 Hyperlipidemia, unspecified; I10 Essential (primary) hypertension; K21.9 Gastro-esophageal reflux disease without esophagitis; E11.9 Type 2 diabetes mellitus without complications; E55.9 Vitamin D deficiency, unspecified; J44.9 Chronic obstructive pulmonary disease, unspecified; G47.33 Obstructive sleep apnea (adult) (pediatric); M35.2 Behcet's disease; M79.7 Fibromyalgia; M35.00 Sjogren syndrome, unspecified; F41.9 Anxiety disorder, unspecified; R53.83 Other fatigue; R05.3 Chronic cough; J98.4 Other disorders of lung; J31.2 Chronic pharyngitis; D83.9 Common variable immunodeficiency, unspecified; M06.00 Rheumatoid arthritis without rheumatoid factor, unspecified site; E66.9 Obesity, unspecified; Z68.35 Body mass index [BMI] 35.0-35.9, adult; Z79.82 Long term (current) use of aspirin; Z79.51 Long term (current) use of inhaled steroids; Z79.810 Long term (current) use of selective estrogen receptor modulators (SERMs); Z79.52 Long term (current) use of systemic steroids; Z79.1 Long term (current) use of non-steroidal anti-inflammatories (NSAID); Z79.85 Long-term (current) use of injectable non-insulin antidiabetic drugs; Z99.89 Dependence on other enabling machines and devices; Z98.890 Other specified postprocedural states; Z98.51 Tubal ligation status; Z90.49 Acquired absence of other specified parts of digestive tract; Z90.2 Acquired absence of lung [part of]; Z85.3 Personal history of malignant neoplasm of breast; Z86.0100 Personal history of colon polyps, unspecified; Z87.19 Personal history of other diseases of the digestive system; Z80.7 Family history of other malignant neoplasms of lymphoid, hematopoietic and related tissues; Z80.6 Family history of leukemia; Z80.1 Family history of malignant neoplasm of trachea, bronchus and lung; Z82.49 Family history of ischemic heart disease and other diseases of the circulatory system
CPT/HCPCS: 30520; 31256; 31255; 31243; 31240; 61782; 82948; A9270; C2618; J1100; J2003; J2004; J2371; J2405; J2704; J2919; J3010; J3301; J7120

== ENCOUNTER 2025-04-14 14:31 | Outpatient (CLI) | payer MEDICARE, SELFPAY ==
--- NOTE | ~2025-04-14 | MM_ITS ---
EXAMINATION: MM screening [facility] BI w gela INDICATION: Asymptomatic, referred for screening mammogram. History of Right partial mastectomy COMPARISON: 02/04/2024 through 04/11/2018 TECHNIQUE: Digital Breast Tomosynthesis CC, MLO views of Both breasts were obtained with computer-aided detection to assist in interpretation of the study. FINDINGS: There are scattered areas of fibroglandular density. There is increasing grouped microcalcifications in the surgical bed in the inner central right breast at posterior third. Elsewhere, there are no mammographic features of malignancy. IMPRESSION: 1. Right breast Incompletely characterized group of calcifications within the partial mastectomy bed. 2. No evidence of malignancy in the Left breast. RECOMMENDATION: Right breast Diagnostic mammogram with true lateral, and appropriate magnification views. BI-RADS Category 0: Incomplete: Needs additional imaging evaluation. Reviewed, dictated and finalized at location B. IMPRESSION: 1. Right breast Incompletely characterized group of calcifications within the partial mastectomy bed. 2. No evidence of malignancy in the Left breast. RECOMMENDATION: Right breast Diagnostic mammogram with true lateral, and appropriate magnificat ion views. BI-RADS Category 0: Incomplete: Needs additional imaging evaluation.
--- OUTSIDE RECORDS SUMMARY | 2025-04-14 14:41 | XMS_ITS | Encounter Summary ---
Author Organization [facility] Address [address] [place] [address] Care Team Providers Care Consumer Marketing Specialist Name Role Phone Devin Saldana MD Primary Care Provider [phone] Encounter Details Date Type Department Care Team (Late st Contact Info) Description 03/19/2019 Lab Requisition [facility] DermPath Lab [address] [facility] [place] [address] Jeanie Anthony MD [address] [facility] [address] DEPT [place] [address] Social History Tobacco Use Types Packs/Day Years Used Date Smoking Tobacco: Never Alcohol Use Standard Drinks/Week Comments Yes 0 (1 standard drink = 0.6 oz pur e alcohol) Comments Unknown Sex and Gender Information Value Date Recorded Sex Assigned at Not on file Legal Sex Female 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 Gender Identity Not on file Sexual Orientation Not on file documented as of this encounter Plan of Treatment Not on file documented as of this encounter Procedures Procedure Name Priority Date/Time Associated Diagnosis Comments DERMATOPATH TECHNICAL REPORT Routine 03/18/2019 12:00 AM CDT documented in this encounter Results * DERMATOPATH TECHNICAL REPORT (03/18/2019 12:00 AM CDT) Case Report Dermatopathology Report Case: [id number] Authorizing Provider: Jeanie Anthony MD Collected: 03/18/2019 12:00 AM Ordering Location: [facility] DermPath Lab Received: 03/19/2019 07:45 AM Pathologist: Kal Galvan MD Specimen: Skin, left corner of mouth 2:39 PM CDT DERMATOPATHOLOGY LABORATORY Addendum 1 At the request of the diagnosing physician, the technical component for Gram test and HSV was performed by [facility] Dermatopathology Laboratory. 2:39 PM CDT DERMATOPATHOLOGY LABORATORY Addendum electronically signed by Kal Galvan MD on 03/22/2019 at 1439 CDT Clinical History Folliculitis vs BCC vs other. Irrit. 2:39 PM CDT DERMATOPATHOLOGY LABORATORY Gross Description Specimen A: Received is one formalin filled container labeled with the patient's name and designated left corner of mouth. The specimen consists of a punch measuring [id number]. Jar 0. [facility] Dermatopathology Laboratory performed the technical component only. [...] characteristic determined by the Dermatopathology Laboratory at [facility], directed by Dr. Radha Galvan. These tests [...] DERMATOPATHOLOGY LABORATORY [facility] - Department of Dermatology [address] [place] [address], 5th [place] [address], [facility] [phone] documented in this encounter Visit Diagnoses Not on filedocumented in this encounter Care Teams Consumer Marketing Specialist Relationship Specialty Start Date End Date Devin Saldana MD [address] [place] [phone] PCP - General 11/02/09 documented as of this encounter
--- OUTSIDE RECORDS SUMMARY | 2025-04-14 14:41 | XMS_ITS | Encounter Summary ---
Author Organization [facility] Address [address] [place] [address] Care Team Providers Care Steel Plate Caulker Name Role Phone Devin Saldana MD Primary Care Provider [phone] Encounter Details Date Type Department Care Team (Late st Contact Info) Description 04/08/2024 Lab Requisition [facility] - DermPath Lab [address] [facility] [place] [address] Jeanie Anthony MD [address] [facility] [address] [place] [address] Social History Tobacco Use Types Packs/Day Years Used Date Smoking Tobacco: Never Smokeless Tobacco: Never Alcohol Use Standard Drinks/Week Comments Not Currently 1 (1 standard drink = 0.6 oz pur e alcohol) Comments Unknown Sex and Gender Information Value Date Recorded Sex Assigned at Not on file 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 Gender Identity Not on file Sexual Orientation Not on file documented as of this encounter Plan of Treatment Not on file documented as of this encounter Procedures Procedure Name Priority Date/Time Associated Diagnosis Comments DERMATOPATHOLOGY Routine 04/08/2024 10:0 0 AM CDT documented in this encounter Results * DERMATOPATHOLOGY (04/08/2024 10:00 AM CDT) Case Report Dermatopathology Report Case: [id number] Authorizing Provider: Jeanie Anthony MD Collected: 04/08/2024 10:00 AM Ordering Location: [facility] - Received: 04/08/2024 03:39 PM [...] characteristic determined by the Dermatopathology Laboratory at [facility], directed by Dr. Radha Galvan. These tests need not be, and therefore are not, approved by the [place] Food and Drug Administration. The tests are used for clinical purposes. Billing Codes Specimen Charges Stain Charges 86197 1 4 2:04 PM CDT DERMATOPATHOLOGY LABORATORY Embedded Images 4 2:04 PM CDT DERMATOPATHOLOGY LABORATORY Pathology/Cytolo gy TISSUE SPECIMEN FROM SKIN / Unknown 04/08/2024 10:00 AM CDT 04/08/2024 3:39 PM CDT us Jeanie Anthony MD LAB - PATHOLOGY/CYTOLOGY OR DERABLES Final Result DERMATOPATHOLOGY LABORATORY [facility] - Department of Dermatology [facility] [address] [place] [address], [address] [phone] documented in this encounter Visit Diagnoses Not on filedocumented in this encounter Care Teams Steel Plate Caulker Relationship Specialty Start Date End Date Devin Saldana MD [address] [place] [address] PCP - General 11/02/09 documented as of this encounter
--- OUTSIDE RECORDS SUMMARY | 2025-04-14 14:41 | XMS_ITS | Encounter Summary ---
Author Organization [facility] Address [address] [place] [address] Care Team Providers Care Chiseler Head Name Role Phone Devin Saldana MD Primary Care Provider [phone] Encounter Details Date Type Department Care Team (Late st Contact Info) Description 02/14/2023 Lab Requisition [facility] DermPath Lab [address] [facility] [place] [phone] Carmen Florez MD [address] [facility] [address] [place] [address] Social History Tobacco Use Types Packs/Day Years Used Date Smoking Tobacco: Never Smokeless Tobacco: Never Alcohol Use Standard Drinks/Week Comments Not Currently 1 (1 standard drink = 0.6 oz pur e alcohol) Comments Unknown Sex and Gender Information Value Date Recorded Sex Assigned at Not on file 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 Gender Identity Not on file Sexual Orientation Not on file documented as of this encounter Plan of Treatment Not on file documented as of this encounter Procedures Procedure Name Priority Date/Time Associated Diagnosis Comments DERMATOPATHOLOGY Routine 02/14/2023 9:29 AM CDT documented in this encounter Results * DERMATOPATHOLOGY (02/14/2023 9:29 AM CDT) Case Report Dermatopathology Report Case: [id number] Authorizing Provider: Carmen Florez MD Collected: 02/14/2023 09:29 AM Ordering Location: [facility] DermPath Lab Received: 02/14/2023 04:32 PM Pathologist: [...] characteristic determined by the Dermatopathology Laboratory at [facility], directed by Dr. Radha Galvan. These tests need not be, and therefore are not, approved by the [place] Food and Drug Administration. The tests are used for clinical purposes. Billing Codes Specimen Charges Stain Charges [id number] 1 3 2:20 PM CDT DERMATOPATHOLOGY LABORATORY Embedded Images 3 2:20 PM CDT DERMATOPATHOLOGY LABORATORY Pathology/Cytolo gy TISSUE SPECIMEN FROM SKIN / Unknown 02/14/2023 9:29 AM CDT 02/14/2023 4:32 PM CDT Carmen Florez MD LAB - PATHOLOGY/CYTOLOGY ORD ERABLES Final Result DERMATOPATHOLOGY LABORATORY [facility] - Department of Dermatology [facility] Medicine [address] [place] [address], [address] [phone] documented in this encounter Visit Diagnoses Not on filedocumented in this encounter Care Teams Chiseler Head Relationship Specialty Start Date End Date Devin Saldana MD [address] [place] [address] PCP - General 11/02/09 documented as of this encounter
--- OUTSIDE RECORDS SUMMARY | 2025-04-14 14:41 | XMS_ITS | Clinical Summary ---
Author Organization [facility] Address [address], [facility] [address] [place] [address] Phone Care Team Providers Care Lumber Sorter Machine Name Role Phone Devin Saldana MD Primary Care Provider [phone] Social History Tobacco Use Types Packs/Day Years [...] Immunization (1 of 2) 10/30/2001 SARS-COV-2 Immunization (1 - 2023- season) 2024 Colonoscopy 01/14/2025 01/15/2020 [...] Relevant to Health Maintenance Insurance MEDIC[facility] Care Teams Lumber Sorter Machine Relationship Specialty Start Date End Date Devin Saldana MD PCP - General Internal Medicine 08/25/19
--- OUTSIDE RECORDS SUMMARY | 2025-04-14 14:42 | XMS_ITS | Clinical Summary ---
Author Organization [facility] Address [address] [place] [address] Care Team Providers Care Trench Shovel Operator Name Role Phone Devin Saldana MD Primary Care Provider [phone] Source Comments [facility],non-owned Affiliates and Associated Physician Practices is amultiple site organization consisting of ambulatory clinics and hospital sitesin [place], [place], [place] and [place]. This disclosure is being madepursuant to the Care Everywhere program and may not contain all information available regarding this patient. 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
--- OUTSIDE RECORDS SUMMARY | 2025-04-14 14:42 | XMS_ITS | Clinical Summary ---
[facility] Address [address] [place] [address] Care Team Providers Care Grinder Operator Name Role Phone Devin Saldana MD [...] daily. Active fluticasone propionate (FLONASE) 50 mcg/spray [place], Suspension nasal inhaler Administer 1 [place] in each nostril daily. Active hydroCHLOROthia zide [...] times daily. 180 Capsule 07/22/2022 12:42 PM LEAD CASE MANAGER 2 Active Additional Information Patient taking differently: 300 mgOral THREE TIMES DAILY, Reported on 08/14/2022 traMADoL (ULTRAM) 50 mg tabletIndicatio ns:S/P thoracotomy Take 1 Tablet (50 mg) by mouth every 6 hours as needed for Pain. 30 Tablet 07/22/2022 12:42 PM LEAD CASE MANAGER 2 Active Additional Information Patient taking differently: 100 mgOralTWO TIMES DAILY, Reported on 08/14/2022 oxyCODONE (ROXICODONE) 5 mg tabletIndicatio ns:S/P thoracotomy Take 1 Tablet (5 mg) by mouth every 4 hours as needed for Pain. 42 Tablet 07/22/2022 12:42 PM LEAD CASE MANAGER 2 Active rosuvastatin (CRESTOR) 10 mg tablet Take 10 mg by mouth daily. 4 Active modafiniL (PROVIGIL) 100 mg Tablet Take 100 mg by mouth daily. Active EnbreL SureClick 50 mg/mL (1 mL) Pen Injector Inject 50 mg by subcutaneous injection every 7 days. 4 Active Mounjaro 2.5 mg/0.5 mL Pen Injector Inject 2.5 mg by subcutaneous injection every 7 days. 5 Active SITagliptin-met FORMIN (JANUMET) 50-1,000 mg tablet Take 1 Tablet by mouth daily. Active tamoxifen (NOLVADEX) 20 mg tabletIndicatio ns:Malignant neoplasm of upper-outer quadrant of right breast in female, estrogen receptor positive (CMS/HCC) Take 1 Tablet (20 mg) by mouth daily. 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 Encounters Date Type Department Care Team Description 03/13/2025 10:30 AM CDT Office Visit [facility] Oncology and Hematology - [place] [address] [place] [address] Benigno Martin MD Malignant neoplasm of upper-outer quadrant of right breast in female, estrogen receptor positive (CMS/HCC) (Primary Dx) 03/10/2025 External Device Data STL ABSTRACTION Provider, Abstract 03/10/2025 Orders Only [facility] Oncology [facility] H[facility]ology [facility] [address] [place] [id number] Benigno Martin MD 02/12/2025 Abstract [facility] On[facility] Hematology [facility] [address] [place] [address] Benigno Martin MD 02/09/2025 Orders Only [facility] On[facility] and Hematology - [place] [address] [place] [address] Benigno Martin MD 02/04/2025 External Device Data [...] 154.9 cm (5' 1) 08/15/2022 2:06 PM LEAD CASE MANAGER Body Mass Index 35.6 08/15/2022 2:06 PM LEAD CASE MANAGER Plan of Treatment Upcoming Encounters Date Type Department Care Team (Late st Contact Info) Description 07/31/2025 9:15 AM LEAD CASE MANAGER Office Visit [facility] Oncology and Hematology - [place] [address] [place] [address] Benigno Martin MD [address] [place] [address] Health Maintenance Due Date Last [...] 07/18/2023, 04/11/2022, Additional history exists COVID-19 Vaccine ( - 2024-2 6 season) 2025 04/07/2024, 07/18/2023, 05/11/2021, Additional history exists OSTEOPOROSIS SCREENING 06/12/2029 06/12/2024 COLORECTAL SCREENING 01/14/2030 01/15/2020 Colorectal Cancer Screening 01/14/2030 ZOSTER VACCINE Completed 04/10/2019, 12/31/2018 Medical Devices Implanted Type Area Food Service Clerk Device Identifier Shelf Expiration Date Model / Serial / Lot Clip Ligating [place] Lg Ti [id number] - Csc - [id number] Implanted:Qty : 1 on 07/19/2022 by Kb Jaimes MD at [facility] Clip Right: Chest TELEFLEX- WECK CLOSURE SYS 09/12/2026 [id number] / / [id number] Clip Ligating Horizon Med Ti [id number] - Csc - [id number] Implanted:Qty : 1 on 07/19/2022 by bK Jaimes MD at [facility] Clip Right: Chest TELEFLEX- WECK CLOSURE SYS 01/06/2025 [id number] / / [id number] Sealant Progel Pleural 4ml [id number] - [id number] Implanted:Qty : 1 on 07/19/2022 by Kb Jaimes MD at [facility] Tissue BARD DAVOL [id number] 01/02/2024 [id number] / / [id number] Procedures Procedure Name Priority Date/Time Associated Diagnosis Comments CBC WITH AUTODIFFERENTIAL Routine 03/09/2025 12:[address] SINUSES LIMITED Routine 02/06/2025 10 :[address] CHEST W CONTRAST Routine 02/06/2025 1 0:49 AM CDT XR DEXA BONE DENSITY AXIAL 1 OR MORE SITES Routine 06/12/2024 10:45 AM LEAD CASE MANAGER MAMMO SCREENING BILAT Routine 02/04/2024 3:11 PM CDT HEMOGLOBIN A1C Routine 07/11/2022 2:23 PM LEAD CASE MANAGER from Last 3 Months or Most Recently [...] 1 OR MORE SITES (06/12/2024 10:45 AM LEAD CASE MANAGER) Anatomical Region Laterality Modality Other us Benigno Martin MD DIAGNOSTIC IMAGING ORDERABLES F inal Result * MAMMO SCREENING BILAT (02/04/2024 3:11 PM CDT) Anatomical Region Laterality Modality Breast Bilateral Mammography us Benigno Martin MD MAMMO ORDERABLES Final Result * (ABNORMAL) HEMOGLOBIN A1C (07/11/2022 2:23 PM LEAD CASE MANAGER) HEMOGLOBIN A1C 6.4(H) <5.7 % 07/11/2022 4:19 PM LEAD CASE MANAGER [facility] EST. AVG GLUCOSE, A1C 137 mg/dL 07/11/2022 4:19 PM LEAD CASE MANAGER [facility] Blood Venipuncture / Unknown 07/11/2022 2:23 PM LEAD CASE MANAGER 07/11/2022 3:49 PM LEAD CASE MANAGER Narrative [facility] - 07/11/2022 4:19 PM LEAD CASE MANAGER HGB A1C INTERPRETATION NORMAL: <5.7% PRE-DIABETES: 5.7 - 6.4% DIABETES: 6.5% OR GREATER Lucinda Hoyos TOWEL SEWER CHEMISTRY ORDERABLES Final Resu lt [facility] CLIA# [id number] [address] [facility] [place] [address] from Last 3 Months or Most Recently Relevant to Health Maintenance Insurance [facility] AETNA PPO MCR Advance Directives For more information, please contact: [phone] * Full Code (Latest Code Status on File) Date Activated Date Inactivated Comments 07/19/2022 2:13 PM 07/22/2022 4:17 PM * Full Code Date Activated Date Inactivated Comments 07/19/2022 9:17 AM 07/19/2022 2:12 PM Care Teams Grinder Operator Relationship Specialty Start Date End Date Devin Saldana MD [address] [place] [address] PCP - General Internal Medicine 04/11/22
--- OUTSIDE RECORDS SUMMARY | 2025-04-14 14:42 | XMS_ITS | Clinical Summary ---
Author Organization [facility] Address [facility] [place] [address] Care Team Providers Care Keysmith Name Role Phone Devin Saldana MD Primary Care Provider [phone] Freddy Ugalde MD Unavailable Unavailable Allergies Active [...] 3 (three) times daily. 1 Active nystatin 622599 UNIT/ML suspension Take 200,000 Units by mouth 2 (two) times daily as needed. 1 Active Vitamin D, Ergocalciferol, 92845 units Cap Take 1 tablet by mouth [...] AM CDT Legal Sex Female 3:45 PM LIFE EDUCATOR Gender Identity Female 12/10/2024 10:56 AM CDT [...] (Latest Contact Info) Description 08/13/2025 9:00 AM LIFE EDUCATOR Hospital Encounter [facility] [place] [address] Artur Veronica MD [address] [address] 08/13/2025 9:00 AM LIFE EDUCATOR - 08/13/2025 9:30 AM LIFE EDUCATOR Surgery [facility] [place]o/[place] [address] Artur Veronica MD [address] [address] COLONOSCOPY SCREENING Scheduled Procedures Name Priority Associated Diagnoses Date/Ti me COLONOSCOPY SCREENING Pharyngoesophageal dysphagia Gastroesophageal reflux disease, unspecified whether esophagitis present Hiatal hernia Hx of adenomatous colonic polyps Screening for colon cancer History of pyloric stenosis 08/13/2025 9:00 AM LIFE EDUCATOR EGD Pharyngoesophageal dysphagia Gastroesophageal reflux disease, unspecified whether esophagitis present Hiatal hernia Hx of adenomatous colonic polyps Screening for colon cancer History of pyloric stenosis 08/13/2025 9:00 AM LIFE EDUCATOR Health Maintenance Due Date Last Done Comments [...] Dexa Scan (General) Completed 06/12/2024 PHQ-2 (Physician [place]) Completed 12/10/2024 Meningococcal B Vaccine Aged Out [...] [facility] Medical Devices Implanted Type Area Guide Dog Mobility Instructor Device Identifier Shelf Expiration Date Model / Serial / Lot Resolution 360 Ultra Clip 235cm/2.8mm Implanted:Qty: 4 on 01/02/2022 by Robin Ray DO at [facility] Clip Implant [employer] [id number] 07/01/2024 [id number] / / [id number] Clip Resolution 2.8mm 360 235cm 11mm Open - [id number] Implanted:Qty: 1 on 01/02/2022 by Robin Ray DO at [facility] Clip Implant [employer] [id number] 08/14/2024 [id number] / / [id number] Clip Resolution 2.8mm 360 235cm 11mm Open - [id number] Implanted:Qty: 1 on 01/02/2022 by Robin Ray DO at [facility] Clip Implant [place] [employer] [facility] [id number] 07/11/2024 [id number] / / [id number] Additional Health Concerns Active Problems Noted Date Diagnosed Date Autogenerated Problem 12/10/2024 Insurance AETNA AETNA Care Teams Keysmith Relationship Specialty Start Date End Date Devin Saldana MD [address] [place] [address] PCP - General INTERNAL MEDICINE 05/25/20 Freddy Ugalde MD [address] [place] [address] INTERNAL MEDICINE 12/22/21
--- OUTSIDE RECORDS SUMMARY | 2025-04-14 14:42 | XMS_ITS | Clinical Summary ---
Author Organization [facility] 2 Address [address] [place] [address] Care Team Providers Care National Accounts Sales Name Role Phone Devin Saldana MD Primary Care Provider Bia Bryant PUBLIC ACCOUNTANT Unavailable [phone] Allergies Active Allergy Reactions Criticality Noted Date [...] Team Description 04/08/2025 8:45 AM CDT Infusion [facility] at [address] [place] [address] Selective deficiency of IgG (HCC) (Primary Dx) 04/08/2025 8:15 AM CDT Lab [facility] at [address] [address] Selective deficiency of IgG (HCC) 03/11/2025 8:45 AM CDT Infusion [facility] at [address] [place] [address] Selective deficiency of IgG (HCC) (Primary Dx) 03/11/2025 8:15 AM CDT Lab [facility] at [address] [address] Selective deficiency of IgG (HCC) 02/11/2025 8:45 AM CDT Infusion [facility] at [address] [address] Selective deficiency of IgG (HCC) (Primary Dx) 02/11/2025 8:15 AM CDT Lab [facility] at [address] [address] Selective deficiency of IgG (HCC) 01/14/2025 8:45 AM CDT Infusion [facility] at [address] [address] Selective deficiency of IgG (HCC) (Primary Dx) 01/14/2025 8:15 AM CDT Lab [facility] at [address] [address] Selective deficiency of IgG (HCC) from Last [...] Medical History Date Comments Hypogammaglobulinemia Diabetes mellitus GERD (gastroesophageal reflux disease) Colon polyp Hyperlipidemia [...] on file 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 Gender Identity Not on file Sexual Orientation [...] 04/10/2019, 12/31/2018 Medical Devices Implanted Type Area Assistant Professor Of Mathematics Device Identifier Shelf Expiration Date Model / Serial / Lot [employer]/C R Bard Ventralight [employer] Sepra Echo Ps 8x6in Monofilament Absorbable Low Latex Free [id number] - [id number] Implanted:Qty: 1 on 02/22/2023 by Robin Ray DO at [facility] Mesh N/A: Abdomen [employer]/C R [id number] 06/19/2023 [id number] / / [id number] Procedures Procedure Name Priority Date/Time Associated Diagnosis [...] K/cumm Comment:Testing performed by : [facility], [address] [place] [address]., [address] Imm gran abs 0.22(H) 0.00 - 0.10 K/cumm CHRIS Comment:Testing performed by : [address], [place]., [address] Lymphocyte abs 1.34 0.80 - 3.30 K/cumm [facility] Comment:Testing performed by : [address] [address] Monocyte abs 0.40 0.20 - 0.80 K/cumm [facility] Comment:Testing performed by : [address] [address] Eosinophil abs 0.03 0.00 - 0.50 K/cumm [facility] Comment:Testing performed by : [address] [address] Basophil abs 0.01 0.00 - 0.10 K/cumm [facility] Comment:Testing performed by : [address] [address] Neutrophil pct 69.5 % [facility] Comment: Interpretive Data Percent cell count reference ranges are not reported, since discordance with absolute values may lead to misinterpretation of CBC data. Current Interpretive Data was last revised on 2017. Testing performed by: [address] [address] Imm gran pct 3.3 % [facility] Comment: Interpretive Data Percent cell count reference ranges are not reported, since discordance with absolute values may lead to misinterpretation of CBC data. Current Interpretive Data was last revised on 2017. Testing performed by: [address] [address] Lymphocyte pct 20.4 % [facility] Comment: Interpretive Data Percent cell count reference ranges are not reported, since discordance with absolute values may lead to misinterpretation of CBC data. Current Interpretive Data was last revised on 2017. Testing performed by: [address] [address] Monocyte pct 6.1 % [facility] Comment: Interpretive Data Percent cell count reference ranges are not reported, since discordance with absolute values may lead to misinterpretation of CBC data. Current Interpretive Data was last revised on 2017. Testing performed by: [address] [address] Eosinophil pct 0.5 % [facility] Comment: Interpretive Data Percent cell count reference ranges are not reported, since discordance with absolute values may lead to misinterpretation of CBC data. Current Interpretive Data was last revised on 2017. Testing performed by: [address] [address] Basophil pct 0.2 % [facility] Comment: Interpretive Data Percent cell count reference ranges are not reported, since discordance with absolute values may lead to misinterpretation of CBC data. Current Interpretive Data was last revised on 2017. Testing performed by: [address] [address] Blood 04/08/2025 8:32 AM CDT 04/08/2025 8:32 AM CDT us Bia Bryant PUBLIC ACCOUNTANT LAB BLOOD ORDERABLES Final Result [facility] [address] [facility] Department [place] [address] * CBC with auto differential (04/08/2025 8:32 AM CDT) WBC 6.58 3.80 - 9.90 K/cumm Comment:Testing performed by : [address] [address] Hgb 12.7 11.9 - 15.5 g/dL CHRIS Comment:Testing performed by : [address] [address] Hct 36.5 35.6 - 45.5 % [facility]IS Comment:Testing performed by : [address] [address] Plt 296 150 - 400 K/cumm [facility]IS Comment:Testing performed by : [address] [address] MPV 10.0 9.1 - 12.3 fL [facility]IS Comment:Testing performed by : [address] [address] RBC 3.94 3.90 - 5.20 M/cumm [facility] Comment:Testing performed by : [address] [address] MCV 92.6 81.3 - 96.4 fL [facility] Comment:Testing performed by : [address] [address] MCH 32.2 27.1 - 33.3 pg [facility]IS Comment:Testing performed by : [address] [address] MCHC 34.8 32.3 - 35.7 g/dL [facility]IS Comment:Testing performed by : [address] [address] RDW CV 13.2 11.1 - 14.9 % [facility] Comment:Testing performed by : [address], [address] RDW SD 44.7 35.7 - 48.1 fL [facility]IS Comment:Testing performed by : [address] [address] NRBC abs 0.00 0.00 - 0.01 K/cumm [facility] Comment:Testing performed by : [address] [address] ANC Prelim 4.58 1.50 - 6.50 K/cumm [facility]IS Comment: Interpretive Data The rapid ANC is a preliminary automated count and may vary from the final ANC (Neut Abs) reported in the WBC differential that follows. Current interpretive data was last revised 2024. Testing performed by: [address] [address] Blood 04/08/2025 8:32 AM CDT 04/08/2025 8:32 AM CDT Bia Bryant PUBLIC ACCOUNTANT LAB BLOOD ORDERABLES Final Result Performing Organization Address City/[facility] Co de Phone Number CHRIS [address] [facility] [place] [address] * Reticulocyte Count (04/08/2025 8:32 AM CDT) [facility] Retics, absolute 81 20 - 87 K/cumm Comment:Testing performed by : [address] [address] Retics 2.1 0.4 - 2.9 % CHRIS Comment:Testing performed by : [address] [address] Reticulocyte Hgb 35.9 30.5 - 38.0 pg [facility] Comment:Testing performed by : [address] [address] Blood 04/08/2025 8:32 AM CDT 04/08/2025 8:32 AM CDT Bia Bryant PUBLIC ACCOUNTANT LAB BLOOD ORDERABLES Final Result Performing Organization Address [facility] Co de Phone Number [place] [phone] [facility] [place] [address] * IgG (04/08/2025 8:32 AM CDT) Pathologist [facility] Immunoglobulin G 812 700 - 1,600 mg/dL Blood 04/08/2025 8:32 AM CDT 04/08/2025 10:27 AM CDT Bia Bryant PUBLIC ACCOUNTANT LAB BLOOD ORDERABLES Final Result Performing Organization Address City/[facility]/ZIP Co de Phone Number CHRIS [address] [facility] Department [place] [address] * (ABNORMAL) Differential, auto (03/11/2025 8:27 AM CDT) Neutrophil abs 4.09 1.50 - 6.50 K/cumm Comment:Testing performed by : [address] [address] Imm gran abs 0.49(H) 0.00 - 0.10 K/cumm CH[facility]IS Comment:Testing performed by : [address] [address] Lymphocyte abs 2.02 0.80 - 3.30 K/cumm [facility]IS Comment:Testing performed by : [address] [address] Monocyte abs 0.52 0.20 - 0.80 K/cumm [facility] Comment:Testing performed by : [address] [address] Eosinophil abs 0.05 0.00 - 0.50 K/cumm [facility] Comment:Testing performed by : [address] [address] Basophil abs 0.02 0.00 - 0.10 K/cumm [facility] Comment:Testing performed by : [address] [address] Neutrophil pct 56.9 % [facility] Comment: Interpretive Data Percent cell count reference ranges are not reported, since discordance with absolute values may lead to misinterpretation of CBC data. Current Interpretive Data was last revised on 2017. Testing performed by: [address] [address] Imm gran pct 6.8 % CH[facility]IS Comment: Interpretive Data Percent cell count reference ranges are not reported, since discordance with absolute values may lead to misinterpretation of CBC data. Current Interpretive Data was last revised on 2017. Testing performed by: [address] [address] Lymphocyte pct 28.1 % [facility]IS Comment: Interpretive Data Percent cell count reference ranges are not reported, since discordance with absolute values may lead to misinterpretation of CBC data. Current Interpretive Data was last revised on 2017. Testing performed by: [address] [address] Monocyte pct 7.2 % [facility]IS Comment: Interpretive Data Percent cell count reference ranges are not reported, since discordance with absolute values may lead to misinterpretation of CBC data. Current Interpretive Data was last revised on 2017. Testing performed by: [address] [address] Eosinophil pct 0.7 % [facility]IS Comment: Interpretive Data Percent cell count reference ranges are not reported, since discordance with absolute values may lead to misinterpretation of CBC data. Current Interpretive Data was last revised on 2017. Testing performed by: [address] [address] Basophil pct 0.3 % [facility]IS Comment: Interpretive Data Percent cell count reference ranges are not reported, since discordance with absolute values may lead to misinterpretation of CBC data. Current Interpretive Data was last revised on 2017. Testing performed by: [address] [address] Blood 03/11/2025 8:27 AM CDT 03/11/2025 8:32 AM CDT Bia Bryant NP LAB BLOOD ORDERABLES Final Result [facility] [address] [facility] Department of Laboratories [place], [place] [id number] * CBC with auto differential (03/11/2025 8:27 AM CDT) WBC 7.19 3.80 - 9.90 K/cumm Comment:Testing performed by : [address] [address] Hgb 12.8 11.9 - 15.5 g/dL CHRIS Comment:Testing performed by : [address] [address] Hct 36.9 35.6 - 45.5 % [facility]IS Comment:Testing performed by : [address] [address] Plt 252 150 - 400 K/cumm [facility]IS Comment:Testing performed by : [address] [address] MPV 10.0 9.1 - 12.3 fL [facility]IS Comment:Testing performed by : [address] [address] RBC 3.99 3.90 - 5.20 M/cumm [facility]IS Comment:Testing performed by : [address] [address] MCV 92.5 81.3 - 96.4 fL CHRIS Comment:Testing performed by : [address] [address] MCH 32.1 27.1 - 33.3 pg [facility]IS Comment:Testing performed by : [address], [address] MCHC 34.7 32.3 - 35.7 g/dL CHRIS Comment:Testing performed by : [address], [address] RDW CV 13.0 11.1 - 14.9 % [facility]IS Comment:Testing performed by : [address], [address] RDW SD 43.8 35.7 - 48.1 fL [facility]IS Comment:Testing performed by : [address], [address] NRBC abs 0.00 0.00 - 0.01 K/cumm [facility]IS Comment:Testing performed by : [address] [address] ANC Prelim 4.09 1.50 - 6.50 K/cumm CH[facility]IS Comment: Interpretive Data The rapid ANC is a preliminary automated count and may vary from the final ANC (Neut Abs) reported in the WBC differential that follows. Current interpretive data was last revised 2024. Testing performed by: [address], [address] Blood 03/11/2025 8:27 AM CDT 03/11/2025 8:32 AM CDT Bia Bryant PUBLIC ACCOUNTANT LAB BLOOD ORDERABLES Final Result Performing Organization Address [facility] Co de Phone Number GURVINDER[address] [address] * Reticulocyte Count (03/11/2025 8:27 AM CDT) [facility] Retics, absolute 83 20 - 87 K/cumm Comment:Testing performed by : [address] [address] Retics 2.1 0.4 - 2.9 % CHRIS Comment:Testing performed by : [facility], [address] [place] [address]., [address] Reticulocyte Hgb 36.7 30.5 - 38.0 pg [facility]IS Comment:Testing performed by : [address] [address] Blood 03/11/2025 8:27 AM CDT 03/11/2025 8:32 AM CDT Bia Bryant PUBLIC ACCOUNTANT LAB BLOOD ORDERABLES Final Result Performing Organization Address [facility] de Phone Number [address] [address] * IgG (03/11/2025 8:27 AM CDT) [facility] Immunoglobulin G 801 700 - 1,600 mg/dL Blood 03/11/2025 8:27 AM CDT 03/11/2025 6:57 PM CDT Bia Bryant PUBLIC ACCOUNTANT LAB BLOOD ORDERABLES Final Result Performing Organization Address [facility] de Phone Number [address] [place] [address] * (ABNORMAL) Differential, auto (02/11/2025 8:40 AM CDT) Neutrophil abs 3.53 1.50 - 6.50 K/cumm Comment:Testing performed by : [address] [address] Imm gran abs 0.45(H) 0.00 - 0.10 K/cumm [facility] Comment:Testing performed by : [address] [address] Lymphocyte abs 1.44 0.80 - 3.30 K/cumm [facility] Comment:Testing performed by : [address], [place]., [address] Monocyte abs 0.36 0.20 - 0.80 K/cumm [facility] Comment:Testing performed by : [address] [address] Eosinophil abs 0.03 0.00 - 0.50 K/cumm [facility] Comment:Testing performed by : [address] [address] Basophil abs 0.01 0.00 - 0.10 K/cumm [facility] Comment:Testing performed by : [address] [address] Neutrophil pct 60.7 % [facility] Comment: Interpretive Data Percent cell count reference ranges are not reported, since discordance with absolute values may lead to misinterpretation of CBC data. Current Interpretive Data was last revised on 2017. Testing performed by: [address] [address] Imm gran pct 7.7 % [facility] Comment: Interpretive Data Percent cell count reference ranges are not reported, since discordance with absolute values may lead to misinterpretation of CBC data. Current Interpretive Data was last revised on 2017. Testing performed by: [address] [address] Lymphocyte pct 24.7 % [facility] Comment: Interpretive Data Percent cell count reference ranges are not reported, since discordance with absolute values may lead to misinterpretation of CBC data. Current Interpretive Data was last revised on 2017. Testing performed by: [address] [address] Monocyte pct 6.2 % [facility]IS [facility] Comment: Interpretive Data Percent cell count reference ranges are not reported, since discordance with absolute values may lead to misinterpretation of CBC data. Current Interpretive Data was last revised on 2017. Testing performed by: [address] [address] Eosinophil pct 0.5 % [facility] Comment: Interpretive Data Percent cell count reference ranges are not reported, since discordance with absolute values may lead to misinterpretation of CBC data. Current Interpretive Data was last revised on 2017. Testing performed by: [address] [address] Basophil pct 0.2 % [facility] Comment: Interpretive Data Percent cell count reference ranges are not reported, since discordance with absolute values may lead to misinterpretation of CBC data. Current Interpretive Data was last revised on 2017. Testing performed by: [address] [address] Blood 02/11/2025 8:40 AM CDT 02/11/2025 8:48 AM CDT Bia Bryant NP LAB BLOOD ORDERABLES Final Result CHRIS [address] [facility] Department [place] [address] * CBC with auto differential (02/11/2025 8:40 AM CDT) WBC 5.82 3.80 - 9.90 K/cumm Comment:Testing performed by : [address] [address] Hgb 12.9 11.9 - 15.5 g/dL [facility] Comment:Testing performed by : [address] [address] Hct 36.9 35.6 - 45.5 % [facility] Comment:Testing performed by : [address] [address] Plt 235 150 - 400 K/cumm [facility] Comment:Testing performed by : [address] [address] MPV 9.9 9.1 - 12.3 fL CHRIS Comment:Testing performed by : [address] [address] RBC 4.03 3.90 - 5.20 M/cumm CH[facility]IS Comment:Testing performed by : [address] [address] MCV 91.6 81.3 - 96.4 fL [facility]IS Comment:Testing performed by : [address] [address] MCH 32.0 27.1 - 33.3 pg CH[facility]IS Comment:Testing performed by : [address] [address] MCHC 35.0 32.3 - 35.7 g/dL CHRIS Comment:Testing performed by : [address], [address] RDW CV 12.9 11.1 - 14.9 % [facility]IS Comment:Testing performed by : [address] [address] RDW SD 42.8 35.7 - 48.1 fL [facility]IS Comment:Testing performed by : [address] [address] NRBC abs 0.00 0.00 - 0.01 K/cumm [facility] Comment:Testing performed by : [address] [address] ANC Prelim 3.53 1.50 - 6.50 K/cumm CH[facility]IS Comment: Interpretive Data The rapid ANC is a preliminary automated count and may vary from the final ANC (Neut Abs) reported in the WBC differential that follows. Current interpretive data was last revised 2024. Testing performed by: [address] [address] Blood 02/11/2025 8:40 AM CDT 02/11/2025 8:48 AM CDT Bia Bryant PUBLIC ACCOUNTANT LAB BLOOD ORDERABLES Final Result Performing Organization Address [facility] Co de Phone Number GURVINDER[address] [place] [address] * (ABNORMAL) Reticulocyte Count (02/11/2025 8:40 AM CDT) [facility] Retics, absolute 88(H) 20 - 87 K/cumm Comment:Testing performed by : [address] [address] Retics 2.2 0.4 - 2.9 % CHRIS Comment:Testing performed by : [address] [address] Reticulocyte Hgb 36.8 30.5 - 38.0 pg CH[facility]IS Comment:Testing performed by : [address] [address] Blood 02/11/2025 8:40 AM CDT 02/11/2025 8:48 AM CDT Bia Bryant PUBLIC ACCOUNTANT LAB BLOOD ORDERABLES Final Result Performing Organization Address [facility] Co de Phone Number [address] [place] [address] * IgG (02/11/2025 8:40 AM CDT) [facility] Immunoglobulin G 829 700 - 1,600 mg/dL Blood 02/11/2025 8:40 AM CDT 02/11/2025 4:33 PM CDT Bia Bryant PUBLIC ACCOUNTANT LAB BLOOD ORDERABLES Final Result Performing Organization Address City/[facility] Co de Phone Number [address] [place] [address] * (ABNORMAL) CBC with auto differential (01/14/2025 8:22 AM CDT) [facility] WBC 9.45 3.80 - 9.90 K/cumm Comment:Testing performed by : [address] [place]., [address] Hgb 12.3 11.9 - 15.5 g/dL CHRIS Comment:Testing performed by : [address], [address] Hct 36.1 35.6 - 45.5 % CH[facility]IS Comment:Testing performed by : [address], [address] Plt 236 150 - 400 K/cumm CH[facility]IS Comment:Testing performed by : [address], [address] MPV 9.7 9.1 - 12.3 fL CHRIS Comment:Testing performed by : [address], [address] RBC 3.84(L) 3.90 - 5.20 M/cumm CH[facility]IS Comment:Testing performed by : [address], [address] MCV 94.0 81.3 - 96.4 fL [facility]IS Comment:Testing performed by : [address], [address] MCH 32.0 27.1 - 33.3 pg CHRIS Comment:Testing performed by : [address], [address] MCHC 34.1 32.3 - 35.7 g/dL CHRIS Comment:Testing performed by : [address], [address] RDW CV 13.2 11.1 - 14.9 % [facility]IS Comment:Testing performed by : [address], [address] RDW SD 45.1 35.7 - 48.1 fL [facility]IS Comment:Testing performed by : [address], [address] NRBC abs 0.00 0.00 - 0.01 K/cumm CH[facility]IS Comment:Testing performed by : [address], [address] ANC Prelim 6.34 1.50 - 6.50 K/cumm CHRIS Comment: Interpretive Data The rapid ANC is a preliminary automated count and may vary from the final ANC (Neut Abs) reported in the WBC differential that follows. Current interpretive data was last revised 2024. Testing performed by: [address] [address] Blood 01/14/2025 8:22 AM CDT 01/14/2025 8:24 AM CDT Bia Bryant PUBLIC ACCOUNTANT LAB BLOOD ORDERABLES Final Result CHRIS [address] [facility] Department [place] [address] * (ABNORMAL) Manual Differential (01/14/2025 8:22 AM CDT) Differential Manual Comment:Testing performed by : [address] [address] Cells Counted 100 CHRIS Comment:Testing performed by : [address] [address] Neutrophil abs 6.90(H) 1.50 - 6.50 K/cumm CH[facility]IS Comment:Testing performed by : [address] [address] Lymphocyte abs 2.17 0.80 - 3.30 K/cumm CH[facility]IS Comment:Testing performed by : [address] [address] Monocyte abs 0.38 0.20 - 0.80 K/cumm CHRIS Comment:Testing performed by : [address] [address] Neutrophil pct 73.0 % CHRIS Comment: Interpretive Data Percent cell count reference ranges are not reported, since discordance with absolute values may lead to misinterpretation of CBC data. Current Interpretive Data was last revised on 2017. Testing performed by: [address] [address] Lymphocyte pct 23.0 % CHRIS Comment: Interpretive Data Percent cell count reference ranges are not reported, since discordance with absolute values may lead to misinterpretation of CBC data. Current Interpretive Data was last revised on 2017. Testing performed by: [address] [address] Monocyte pct 4.0 % [facility] Comment: Interpretive Data Percent cell count reference ranges are not reported, since discordance with absolute values may lead to misinterpretation of CBC data. Current Interpretive Data was last revised on 2017. Testing performed by: [address] [address] Blood 01/14/2025 8:22 AM CDT 01/14/2025 8:24 AM CDT Bia Bryant PUBLIC ACCOUNTANT LAB BLOOD ORDERABLES Final Result Performing Organization Address City/[facility] de Phone Number [address] [place] [address] * Reticulocyte Count (01/14/2025 8:22 AM CDT) Pathologist [facility] Retics, absolute 79 20 - 87 K/cumm Comment:Testing performed by : [address] [address] Retics 2.1 0.4 - 2.9 % CH[facility]IS [facility] Comment:Testing performed by : [address] [address] Reticulocyte Hgb 36.0 30.5 - 38.0 pg [facility]IS [facility] Comment:Testing performed by : [address] [address] Blood 01/14/2025 8:22 AM CDT 01/14/2025 8:24 AM CDT Bia Bryant PUBLIC ACCOUNTANT LAB BLOOD ORDERABLES Final Result Performing Organization Address City/[facility] de Phone Number [address] [place] [address] * IgG (01/14/2025 8:22 AM CDT) [facility] Immunoglobulin G 789 700 - 1,600 mg/dL Blood 01/14/2025 8:22 AM CDT 01/14/2025 2:26 PM CDT Bia Bryant NP LAB BLOOD ORDERABLES Final Result [facility]IS MH [address] [facility] Department [place] [address] from Last 3 Months Insurance SPECIAL CONTRACT ARRANGEMENT [facility] Address: [facility] [id number] [place] [address] [employer] MEDICARE ADVANTAGE AET MEDICARE [facility] Address: [address] [place] [address] Care Teams National Accounts Sales Relationship Specialty Start Date End Date Devin Saldana MD [address] [place] [address] PCP - General 11/14/17 Bia Bryant NP [address] [place] [address] Nurse Practitioner Nurse Practitioner 10/30/23
== END 2025-04-14 14:32 | disposition home or self-care (01) ==
LOC: ANHFOHIMG 14:33
PROVIDERS: PCP Internal Medicine; Visit Provider Internal Medicine Hematology & Oncology
DX: Z12.31 Encounter for screening mammogram for malignant neoplasm of breast (principal); R92.1 Mammographic calcification found on diagnostic imaging of breast
CPT/HCPCS: 77063; 77067

== ENCOUNTER 2025-06-09 09:58 | Outpatient (CLI) | payer MEDICARE, SELFPAY ==
--- NOTE | ~2025-06-09 | US_ITS ---
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 Comparison: None Technique: Waddell-scale and color Doppler images were obtained. Findings: Correlating with the palpable area there is a large complex focus within the posterior forearm without abnormal flow measuring 1.6 x 1.5 cm. IMPRESSION: Nonspecific complex subcutaneous focus possibly a resolving abscess or hematoma. Other etiologies are not excluded. Follow-up recommended to assess resolution Reviewed, dictated and finalized at location P. WASHER FEEDER IMPRESSION: Nonspecific complex subcutaneous focus possibly a resolving abscess or hematoma. Other etiologies are not excluded. Follow-up recommended to asses s resolution
--- NOTE | ~2025-06-09 | US_ITS ---
EXAMINATION: US soft tissue UE LT DATE: 06/09/2025 10:46 INDICATION: Localized swelling, mass or lump at the left forearms TECHNIQUE: Multiple grayscale and Doppler ultrasound images of the region of concern at the posterior left forearm were obtained. COMPARISON: None FINDINGS: Soft tissues swelling with subcutaneous edema in the region of concern along the posterior left forearm. The underlying musculature appears unremarkable. No abnormal masses are likely fluid collections identified. IMPRESSION: 1. Soft tissue swelling with nonspecific subcutaneous edema at the posterior left forearm region of concern. No abnormal masses or loculated fluid collections. 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 Soft tissue swelling with nonspecific subcutaneous edema at the posterior le ft forearm region of concern. No abnormal masses or loculated fluid collections .
== END 2025-06-09 09:59 | disposition home or self-care (01) ==
PROVIDERS: PCP Internal Medicine; Visit Provider Internal Medicine
DX: R22.33 Localized swelling, mass and lump, upper limb, bilateral (principal)
CPT/HCPCS: 76882